=== PATIENT | male | born 1960 | race Caucasian/White ===

== ENCOUNTER 2023-03-10 06:59 | Emergency (ER) | payer MEDICARE, MEDICAID, SELFPAY ==
[2023-03-10 07:02] VITALS: BP 143/89; PULSE 58; RESP 16; TEMP 36.7; O2SAT 96; BMI 33.9
--- NOTE | 2023-03-10 07:16 | ECG_ITS ---
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
--- NOTE | 2023-03-10 07:17 | PC.NURSE ---
pt explained to this Rn how he's had multiple heart stents and open heart surgery. Pt did admit to having some cchest discomfort last night, none currently. EKG completed.
--- NOTE | 2023-03-10 07:21 | ED.URI1 ---
HPI - URI/Sore Throat General Chief Complaint: Upper Respiratory Infection Stated Complaint: SORE THROAT Time Seen by Provider: 03/10/23 07:15 Source: patient Limitations: no limitations History of Present Illness HPI Narrative: 63 -year-old male presents for sore throat which he's had for three days. He's been taking lozenges without improvement. No fever or productive cough. the pain is moderate and worse when he swallows. Related Data Allergies Allergy/AdvReac Type Severity Reaction Status Date / Time rinexa Allergy Severe Uncoded 03/10/23 07:05 Review of Systems ROS Narrative A ten point review of systems is negative except as noted above. PFSH PFSH Social History Smoking status: Current every day smoker Exam Narrative Exam Narrative: Nurses note and vital signs reviewed and patient is not hypoxic. General: The patient appears well and in no apparent distress. Patient is resting comfortably on cart. Skin: Warm, dry, no pallor noted. There is no rash noted. Head: Normocephalic, atraumatic Eye: Normal conjunctiva, no drainage Ears, Nose, Mouth, and Throat: oral mucosa is moist. Nares patent. Mouth without vesicles. no pharyngeal exudate or erythema. No cervical adenopathy. Uvula midline. No swelling noted. Cardiovascular: Regular Rate and Rhythm Respiratory: Patient is in no distress, no accessory muscle use, lungs are clear to auscultation, no wheezing, rales or rhonchi Back: non-tender GI: nontender Musculoskeletal: The patient has no evidence of calf tenderness, no pitting edema, symmetrical pulses noted bilaterally Neurological: A&O, normal speech Psychiatric: Cooperative Constitutional Vital Signs, click to edit/add: Last Vital Signs Temp 98.1 F 03/10/23 07:02 Pulse 58 L 03/10/23 07:02 Resp 16 03/10/23 07:02 BP 143/89 H 03/10/23 07:02 Pulse Ox 96 03/10/23 07:02 O2 Del Method Room Air 03/10/23 07:02 Course Vital Signs Vital signs: Vital Signs Temperature 98.1 F 03/10/23 07:02 Pulse Rate 58 L 03/10/23 07:02 Respiratory Rate 16 03/10/23 07:02 Blood Pressure 143/89 H 03/10/23 07:02 Pulse Oximetry 96 03/10/23 07:02 Oxygen Delivery Method Room Air 03/10/23 07:02 Temperature 98.1 F 03/10/23 07:02 Pulse Rate 58 L 03/10/23 07:02 Respiratory Rate 16 03/10/23 07:02 Blood Pressure 143/89 H 03/10/23 07:02 Pulse Oximetry 96 03/10/23 07:02 Oxygen Delivery Method Room Air 03/10/23 07:02 MDM - URI/Sore Throat MDM Narrative Medical decision making narrative: strep test is negative and he is given IM Decadron. Treatment diagnosis and follow-up were discussed with the patient. Antibiotic is not indicated. Differential Diagnosis Differential diagnosis: Likely upper respiratory infection, viral infection, pharyngitis and other (sstrep throat, viral pharyngitis) Lab Data Attestation: I reviewed the patient's lab results. Labs: Lab Results 03/10/23 Range/Units 07:05 Streptococcus Screen Negative Discharge Plan Discharge Chief Complaint: Upper Respiratory Infection Clinical Impression: Acute viral pharyngitis Patient Disposition: Home, Self-Care Time of Disposition Decision: 07:35 Condition: Good Mode of Transportation: Private Vehicle Instructions: Pharyngitis (ED) Stand Alone Forms: Portal Instructions Referrals: LAYO VÁSQUEZ [Primary Care Provider] - 1 week
[2023-03-10 07:25] LABS: Internal Control Within Normal Limits; Strep A Antigen Screen Negative
[2023-03-10] MEDS: DEXAMETHASONE SODIUM PHOSPHATE 10 MG/ML VIAL IM (07:47)
== END 2023-03-10 07:57 | disposition home or self-care (01) ==
PROVIDERS: Emergency Provider Emergency Medicine; PCP Family Medicine
DX: J02.9 Acute pharyngitis, unspecified (principal); F17.210 Nicotine dependence, cigarettes, uncomplicated
CPT/HCPCS: 87070; 87880; 93005; 96372; 99284; J1100

== ENCOUNTER 2023-09-16 09:16 | Outpatient (OUT) | payer MEDICARE, MEDICAID, SELFPAY ==
[2023-09-16 10:28] LABS: Basophils Absolute Auto 0.1 10^3/uL (0.0-0.1); Basophils Percent Auto 0.9 % (0.2-2.0); Eosinophils Absolute Auto 0.1 10^3/uL (0.0-0.7); Eosinophils Percent Auto 1.4 % (0.9-7.0); Hematocrit 48.8 % (42.0-54.0); Hemoglobin 16.5 g/dL (14.0-18.0); Immature Granulocytes Abs Auto 0.02 10^3/uL (0.00-0.03); Immature Granulocytes Pct Auto 0.4 % (0.0-0.5); Lymphocytes Absolute Auto 1.6 10^3/uL (1.2-3.8); Lymphocytes Percent Auto 28.1 % (20.5-60.0); Mean Corpuscular HGB Conc 33.8 g/dL (29.9-35.2); Mean Corpuscular Hemoglobin 29.5 pg (25.9-34.0); Mean Corpuscular Volume 87.3 fL (80.0-94.0); Mean Platelet Volume 10.5 fL (9.5-13.5); Monocytes Absolute Auto 0.6 10^3/uL (0.3-0.8); Monocytes Percent Auto 11.1 % (1.7-12.0); Neutrophils Absolute Auto 3.2 10^3/uL (1.4-6.5); Neutrophils Percent Auto 58.1 % (43.0-75.0); Platelet Count 133 10^3/uL (150-450); Red Blood Count 5.59 10^6/uL (4.70-6.10); Red Cell Distribution Width 13.1 % (11.0-15.0); White Blood Count 5.5 10^3/uL (4.0-11.0)
[2023-09-16 11:01] LABS: Alanine Aminotransferase 53 U/L (16-63); Albumin Globulin Ratio 1.2; Albumin Level 3.7 g/dL (3.4-5.0); Alkaline Phosphatase 100 U/L (46-116); Anion Gap 13.4; Aspartate Amino Transferase 18 U/L (15-37); BUN Creatinine Ratio 27.2; Bilirubin Total 0.5 mg/dL (0.2-1.0); Calcium 8.9 mg/dL (8.5-10.1); Carbon Dioxide 24.9 mmol/L (21.0-32.0); Chloride 104 mmol/L (98-107); Chol HDL Ratio 5.8; Cholesterol 214 mg/dL (<=200); Estimated GFR (African America >60 (>=60); Estimated GFR (Non-African Ame >60 (>=60); Globulin 3.1 g/dL; Glucose 283 mg/dL (74-106); HDL Cholesterol 37 mg/dL (40-60); Potassium 4.3 mmol/L (3.5-5.1); Sodium 138 mmol/L (136-145); Total Protein 6.8 g/dL (6.4-8.2); Triglycerides 220 mg/dL (<=150)
== END 2023-09-16 09:17 | disposition home or self-care (01) ==
LOC: LAB 09:17
PROVIDERS: Visit Provider Nurse Practitioner
DX: E78.2 Mixed hyperlipidemia (principal); I25.110 Atherosclerotic heart disease of native coronary artery with unstable angina pectoris; R07.9 Chest pain, unspecified
CPT/HCPCS: 36415; 80053; 80061; 85025

== ENCOUNTER 2023-09-26 13:36 | Outpatient (OUT) | payer MEDICARE, MEDICAID, SELFPAY ==
--- NOTE | 2023-09-26 14:00 | CA_ITS ---
Patient Name: SALOMÓN JUSTICE MR#: [id number] : 1960 Exam Date: 09/26/2023 Ordering Doctor: DEBORAH CRANE ECHOCARDIOGRAM REPORT PROCEDURE: CA ECHO DOPPLER COMPLETE INDICATIONS: Dyspnea on exertion, chest pain, hypertension, CABGx2, stents, diabetes COMPARISON: None. DESCRIPTION: COMPLETE ECHOCARDIOGRAM Real-time transthoracic echocardiography with 2D, M-mode, spectral and color flow Doppler performed. QUALITY: Technical quality was good. 70 , 245#, BSA 2.28 m2 LEFT VENTRICLE: Normal chamber size. Normal left ventricular wall thickness. LV EF: Global left ventricular systolic function is normal; visually estimated ejection fraction is 55 to 60%. Unable to assess regional wall motion abnormalities. DIASTOLIC: Normal diastolic function. ATRIAL SEPTUM: Inadequately seen. LEFT ATRIUM: Normal chamber size. RIGHT ATRIUM: Normal chamber size. RIGHT VENTRICLE: Normal chamber size. Normal right ventricular systolic function. TRICUSPID VALVE: Normal mobility and thickness. Trivial regurgitation. Unable to assess right-sided pressures due to lack of measurable tricuspid regurgitation. MITRAL VALVE: Normal mobility and thickness. No evidence of mitral valve stenosis. There is no mitral annular calcification. Mild mitral regurgitation. AORTIC VALVE: Normal trileaflet appearance. No visible sclerosis. Normal leaflet mobility. No evidence of aortic valve stenosis. Trivial aortic regurgitation. AORTIC ROOT: Normal diameter and appearance. PULMONIC VALVE: Normal thickness and mobility. No stenosis. Mild regurgitation. PERICARDIUM: Anterior free space; trivial effusion versus fat pad. IVC: Not well visualized. CONCLUSION: 1. Global left ventricular systolic function is normal; visually estimated ejection fraction is 55 to 60% 2. Normal right ventricular size and systolic function 3. Normal diastolic function 4. Mild mitral regurgitation 5. Mild pulmonic regurgitation 6. Anterior free space; trivial effusion versus fat pad Adult Echocardiography Procedure Report Left Ventricle LVEDD (3.7 - 5.6 cm): 5.47 cm LVESD (2.2 - 4.0 cm): 3.38 cm LVIVS thickness (0.6 - 1.2 cm): 1.10 cm LVPW thickness (0.5 - 1.0 cm): 1.15 cm e': 0.12 m/s E - e': 6.15 LVOT Max Gradient: 3.52 mm[Hg] LVOT Area (cm2): 0.94 m/s Peak Velocity (LVOT): 0.94 m/s Mean Velocity (LVOT): 0.63 m/s LVOT Diameter 2.02 cm Left Atrium LA Volume Index (2D A2C): 28.16 ml/m2 Left Atrium Systolic Dimension: 4.73 cm Mitral Valve MV E to A Ratio: 1.05 Mitral Valve A-Wave Peak Velocity: 0.73 m/s Mitral Valve E-Wave Peak Velocity: 0.76 m/s Right Ventricle Aorta AO Root Diam: 3.26 cm Ascending Ao Diam: 3.06 cm Aortic Valve AoV Area (Peak Nacho): 2.85 cm2, 2.85 cm2 AoV Area (VTI): 3.97 cm2, 3.97 cm2 Peak Velocity(Antegrade Flow): 1.05 m/s Peak Gradient(Antegrade Flow): 4.42 mm[Hg] Mean Velocity(Antegrade Flow): 0.68 m/s Mean Gradient(Antegrade Flow): 2.18 mm[Hg] Velocity Time Integral: 16.83 cm Tricuspid Valve Pulmonic Valve Peak Velocity: 1.24 m/s Peak Gradient: 6.56 mm[Hg], 5.68 mm[Hg] Right Atrium Right Atrium Systolic Pressure: 34.47 ml, 34.47 ml Dictated by: Timmy Arriaga M.D. on 09/26/2023 at 14:54 Approved by: Timmy Arriaga M.D. on 09/26/2023 at 14:58
== END 2023-09-26 13:37 | disposition home or self-care (01) ==
LOC: CARD 13:37
PROVIDERS: Visit Provider Nurse Practitioner
DX: R07.9 Chest pain, unspecified (principal); I10 Essential (primary) hypertension; R06.09 Other forms of dyspnea
CPT/HCPCS: 93306

== ENCOUNTER 2023-11-01 08:09 | Outpatient (OUT) | payer MEDICARE, MEDICAID, SELFPAY ==
--- NOTE | 2023-11-01 | PCN_ITS ---
CARDIAC STRESS TEST Requesting Physician: Procedure Date: 11/01/2023 This was a Lexiscan stress test with myocardial perfusion imaging performed at the [facility] on 11/01/2023. An informed consent was obtained. An intravenous line was secured and the patient was attached to electrocardiographic monitoring. Baseline ECG and vital signs were obtained. Lexiscan 0.4 mg were administered intravenously, followed by administration of Cardiolite. The patient then went on to obtain myocardial perfusion imaging. Resting heart rate was 47 BPM and maximum heart rate was 68 BPM. The resting blood pressure was 118/70 and maximum blood pressure was 122/72. Resting ECG showed evidence of marked sinus bradycardia with first degree AV block. ECG following infusion of Lexiscan showed no evidence of ischemic changes. The patient remained in sinus rhythm. Final ECG was comparable to baseline. IMPRESSION: 1. No evidence of ischemic ECG changes following infusion of Lexiscan. 2. Myocardial perfusion images will be reported separately. MTDD
--- NOTE | 2023-11-01 | NM_ITS ---
Patient Name: SALOMÓN JUSTICE MR#: [id number] : 1960 Exam Date: 11/01/2023 Ordering Doctor: DR HILLARY COLIN M.D. RADIOLOGY REPORT PROCEDURE: NM MIROSLAVA PERF SPECT REST STR COMPARISON: None. INDICATIONS: CHEST PAIN UNSPECIFIED TECHNIQUE: Exam Description: Stress/Rest one day protocol gated SPECT Rest Imagin.8 mCi Tc-99m Cardiolite IV on 11/01/2023 Stress Imaging 30.2 mCi Tc-99m Cardiolite IV on 11/01/2023 Exercise Protocol: 0.4 mg Lexiscan given IV Heart Rate (bpm): Rest: 47 Max: 68 PMHR: 43 Blood Pressure: Rest: 118/70 Max: 122/72 Symptoms: Rest and peak stress ECG findings were pending and the exercise portion of the study was pending per attending physician Dr. OLMEDO . For more details please see separate cardiac stress test report. FINDINGS: QUALITY OF STUDY: Excellent. PERFUSION DEFECT: LOCATION: Basal inferior. Mid-inferior. SIZE: Small (1-2 segments). SEVERITY: Severe. TYPE: Persistent. WALL MOTION: Normal. LV SIZE: Enlarged; EDV 129 mL. TID / TCD: None; 1.1 LVEF: Normal. Calculated EF 65%. SUMMARY: Myocardial perfusion imaging study has ABNORMAL findings. CONCLUSION: 1. No acute or reversible ischemia. 2. Inferior wall fixed perfusion defect versus diaphragm attenuation artifact. 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 3. Enlarged left ventricle, 129 mL. 4. Normal wall motion and ejection fraction. Dictated by: Geoff Holliday M.D. on 11/02/2023 at 14:35 Approved by: Geoff Holliday M.D. on 11/02/2023 at 14:38
--- OUTSIDE RECORDS SUMMARY | 2023-11-01 08:12 | XMS_ITS | CCD ---
Author Organization [facility] Care Team Providers Care Supervisor Press Room Name Role Phone SELF, REFERRED Referring Unavailable HOUSE, MITESH Primary Care Unavailable KIRK, JCAI Admitting Unavailable KIRK, JACI Attending Unavailable Horace MANDEL Attending Unavailable ELTAHAWDanisha, DR THORNTON Consulting Unavailable HOUSE, DR VASQUES Primary Care Unavailable ELTAHAWY, DR THORNTON Attending Unavailable ELTAHAWDanisha, DR THORNTON Admitting Unavailable ZIEBER, DR CHRISTA Macias Consulting Unavailable HOUSE, DR VASQUES Admitting Unavailable HOUSE, DR VASQUES Primary Care Unavailable HOUSE, DR VASQUES Consulting Unavailable AUBURN, DR VASQUES Attending Unavailable ELTAHAWY, HILLARY Attending Unavailable ROSA MARIADEBORAH Galloway Attending Unavailable ELTAHAWY, HILLARY Attending Unavailable ELTAHAWY, EHAB Referring Unavailable Allergies Allergy Classification Reported Allergen(s) Allergy Type Date of Onset Reaction(s) Facility (1 source) black walnut pollen extract Drug Allergy 06-16-2016 [facility] Repository (1 source) ranolazine Drug Allergy 06-11-2009 [facility] Repository (1 source) RENAX Drug allergy (disorder) 12-04-2012 [facility] Repository (1 source) ranolazine; Translations: [RANOLAZINE] Drug Allergy 07-19-2014 [facility] Repository Problems Active Problems Problem Classification Problem Date Documented Date Episodic/Chronic Coronary atherosclerosis and other heart disease (4 sources) Atherosclerotic heart disease of [place] coronary artery with unstable angina pectoris; Translations: [Atherosclerotic heart disease of [place] coronary artery without angina pectoris] Onset: 03-31-2022 Chronic Diabetes mellitus without complication (4 sources) Type 2 diabetes mellitus without complications; Translations: [TYPE 2 DM WITHOUT COMPLICATIONS] Onset: 07-07-2022 Chronic Disorders of lipid metabolism (10 sources) Other hyperlipidemia; Translations: [Mixed hyperlipidemia] Onset: 08-31-2022 Chronic Essential hypertension (3 sources) Essential (primary) hypertension; Translations: [ESSENTIAL PRIMARY HYPERTENSION] Onset: 10-24-2022 Chronic Nonspecific chest pain (2 sources) Chest pain, unspecified; Translations: [Chest pain, unspecified] Onset: 09-14-2023 Episodic Other lower respiratory disease (2 sources) Other forms of dyspnea; Translations: [Other forms of dyspnea] Onset: 09-14-2023 Episodic Past or Other Problems Problem Classification Problem Date Documented Da te Episodic/Chronic Genitourinary symptoms and ill-defined conditions (1 source) Hesitancy of micturition; Translations: [HESITANCY OF MICTURITION] Onset: 07-10-2022 Episodic Other lower respiratory disease (2 sources) Dyspnea, unspecified; Translations: [Dyspnea, unspecified] Onset: 10-13-2022 Episodic Spondylosis; intervertebral disc disorders; other back problems (3 sources) Cervicalgia; Translations: [CERVICALGIA] Onset: 10-13-2022 Episodic Results Test Name Value Interpretation Reference Range Facility Office Visiton 09-14-2023 Follow-up visit [id number] Salomón Justice 1960 M Date Provider Department Center 09/14/2023 120-ROSA MARIA, DEBORAH [facility] No family history on file Level of Service:26115 SD OFFICE/OUTPATIENT ESTABLISHED MOD MDM 30 MIN Normal [facility] Office Visiton 04-20-2023 Follow-up visit [id number] Salomón Justice 1960 M Date Provider Department Center 04/20/2023 271-CORRIETAALISHA, HILLARY [facility] No family history on file Level of Service:72623 SD OFFICE/OUTPATIENT ESTABLISHED LOW MDM 20-29 MIN Normal [facility] LIPID PROFILEon 10-22-2022 CHOL-HDL RATIO NORM SEE BELOW Normal [facility] Comment on above: Result Comment: 3.3 - 4.4 LOW RISK 4.4 - 7.1 AVERAGE RISK 7.1 - 11.0 MODERATE RISK >11.0 HIGH RISK Performed By: #### L SUZANNE, LIPID #### [facility] [address] [address] [address] Anderson Powers Cholesterol [Mass/Vol] 191 mg/dL Normal <=200 [facility] Comment on above: Performed By: #### L IVER, LIPID #### [facility] [address] [address] [address] Anderson Powers Cholesterol in HDL [Mass/Vol] 34 mg/dL Critically low 40-60 [facility] Comment on above: Performed By: #### L IVER, LIPID #### [facility] [address] [address] [address] Andreson Powers Cholesterol in LDL [Mass/Vol] 107.8 mg/dL Normal [facility] Comment on above: Performed By: #### L IVER, LIPID #### [facility] [address] [address] [address] Anderson Powers Cholesterol.total/Ch olesterol in HDL [Mass ratio] 5.6 {ratio} Normal [facility] Comment on above: Performed By: #### L IVER, LIPID #### [facility] [address] [address] [address] Anderson Powers HDL NORMAL > or = 60 mg/dl - LOW CARDIOVASCULAR RISK <40 mg/dl - HIGH CARDIOVASCULAR RISK Normal [facility] Comment on above: Performed By: #### L IVER, LIPID #### [facility] [address] [address] [address] Anderson Powers LDL CALC NORMAL SEE BELOW Normal [facility] Comment on above: Result Comment: <100 mg/dl OPTIMAL 100 - 129 mg/dl NEAR OR ABOVE OPTIMAL 130 - 159 mg/dl BORDERLINE HIGH 160 - 189 mg/dl HIGH >190 mg/dl VERY HIGH Performed By: #### L IVER, LIPID #### [facility] [address] [address] [address] Anderson Powers Triglyceride [Mass/Vol] 246 mg/dL Critically high <=150 [facility] Comment on above: Performed By: #### L IVER, LIPID #### [facility] [address] [address] [address] Anderson Powers VLDL CALC 49.2 mg/dL Normal [facility] Comment on above: Performed By: #### L IVER, LIPID #### [facility] [address] [address] [address] Anderson Powers LIVER PROFILEon 10-22-2022 Albumin [Mass/Vol] 4.0 g/dL Normal 3.4-5.0 [facility] Comment on above: Performed By: #### L IVER, LIPID #### [facility] [address] [address] [address] Anderson Powers Albumin/Globulin [Mass ratio] 1.5 {ratio} Normal [facility] Comment on above: Performed By: #### L IVER, LIPID #### [facility] [address] [address] [address] Anderson Powers ALP [Catalytic activity/Vol] 124 U/L Critically high 46-116 [facility] Comment on above: Performed By: #### L IVER, LIPID #### [facility] [address] [place] [address] Dr. Anderson Powers ALT [Catalytic activity/Vol] 55 U/L Normal 16-63 [facility] Comment on above: Performed By: #### L IVER, LIPID #### [facility] [address] [place] [address] Dr. Anderson Powers AST [Catalytic activity/Vol] 21 U/L Normal 15-37 [facility] Comment on above: Performed By: #### L IVER, LIPID #### [facility] [address] [place] [address] Dr. Anderson Powers BILI, CONJUGATED 0.1 mg/dL Normal 0.0-0.2 [facility] Comment on above: Performed By: #### L IVER, LIPID #### [facility] [address] [address] [address] Anderson Powers Bilirubin [Mass/Vol] 0.5 mg/dL Normal 0.2-1.0 [facility] Comment on above: Performed By: #### L IVER, LIPID #### [facility] [address] [address] [address] Anderson Powers Globulin (S) [Mass/Vol] 2.7 g/dL Normal [facility] Comment on above: Performed By: #### L IVER, LIPID #### [facility] [address] [address] [address] Anderson Powers Protein [Mass/Vol] 6.7 g/dL Normal 6.4-8.2 [facility] Comment on above: Performed By: #### L IVJAS LIPID #### [facility] [address] [address] [address] Anderson Powers XR CSPINE MIN 4 VIEWSon 09-30 XR CSPINE MIN 4 VIEWS EXAMINATION: XR CSPINE MIN 4 VIEWS HISTORY: Neck pain COMPARISON: No relevant comparison available. FINDINGS: BONES: Mild degenerative facet arthropathy C5-6, C6-7. No fracture or spondylolisthesis. DISC SPACES: Slight narrowing C3-4 through C6-7. PARASPINOUS: Negative. No paraspinous abnormality is seen. OTHER: Negative. IMPRESSION: 1. Multilevel mild degenerative changes. 2. No appreciable acute abnormality. Electronically authenticated by: CHRISTA BARRAGAN Date: 2022-10-22 11:08 Normal [facility] Office Visiton 10-13-2022 Follow-up visit [id number] Salomón Justice 1960 M Date Provider Department Center 10/13/2022 271-HILLARY ARRIAGA [facility] Cat . No family history on file Level of Service:87009 SD OFFICE/OUTPATIENT ESTABLISHED MOD MDM 30-39 MIN Reason for Visit and Comments: heart pain [Other] - Patient states that last week it felt like someone was sticking a needle in heart.patient states there's tightness in the chest every now and than Normal [facility] Registrationon 08-18-2022 Registration [id number]# 1.00CD:[address] [facility] CBC AUTO DIFFon 07-07-2022 BASO # 0.0 103/ul Normal 0.0-0.1 [facility] Comment on above: Performed By: #### C BC #### [facility] [address] [address] [address] Anderson Powers Basophils/100 WBC (Bld) 0.7 % Normal 0.2-2.0 [facility] Comment on above: Performed By: #### C BC #### [facility] [address] [place] [address] Dr. Anderson Powers EO # 0.1 103/ul Normal 0.0-0.7 [facility] Comment on above: Performed By: #### C BC #### [facility] [address] [place] [address] Dr. Anderson Powers Eosinophils/100 WBC (Bld) 1.6 % Normal 0.9-7.0 [facility] Comment on above: Performed By: #### C BC #### [facility] [address] [place] [address] Dr. Anderson Powers Erythrocyte distribution width (RBC) [Ratio] 13.2 % Normal 11.0-15.0 [facility] Comment on above: Performed By: #### C BC #### [facility] [address] [place] [address] Dr. Anderson Powers Hematocrit (Bld) [Volume fraction] 47.3 % Normal 42.0-54.0 [facility] Comment on above: Performed By: #### C BC #### [facility] [address] [place] [address] Dr. Anderson Powers Hemoglobin (Bld) [Mass/Vol] 16.2 g/dL Normal 14.0-18.0 [facility] Comment on above: Performed By: #### C BC #### [facility] [address] [place] [address] Dr. Anderson Powers IG # 0.03 10e3/ul Normal 0.00-0.03 [facility] Comment on above: Performed By: #### C BC #### [facility] [address] [place] [address] Dr. Anderson Powers IG % 0.5 % Normal 0.0-0.5 [facility] Comment on above: Performed By: #### C BC #### [facility] [address] [place] [address] Dr. Anderson Powers LYMPH # 1.4 103/ul Normal 1.2-3.8 [facility] Comment on above: Performed By: #### C BC #### [facility] [address] [place] [address] Dr. Anderson Powers Lymphocytes/100 WBC (Bld) 24.1 % Normal 20.5-60.0 [facility] Comment on above: Performed By: #### C BC #### [facility] [address] [place] [address] Dr. Anderson Powers MANUAL DIFF REQ NO Normal [facility] Comment on above: Performed By: #### C BC #### [facility] [address] [place] [address] Dr. Anderson Powers MCH (RBC) [Entitic mass] 29.4 pg Normal 25.9-34.0 [facility] Comment on above: Performed By: #### C BC #### [facility] [address] [place] [address] Dr. Anderson Powers MCHC (RBC) [Mass/Vol] 34.2 g/dL Normal 29.9-35.2 [facility] Comment on above: Performed By: #### C BC #### [facility] [address] [place] [address] Dr. Anderson Powers MCV (RBC) [Entitic vol] 85.8 fL Normal 80.0-94.0 [facility] Comment on above: Performed By: #### C BC #### [facility] [address] [place] [address] Dr. Anderson Powers MONO # 0.5 103/ul Normal 0.3-0.8 [facility] Comment on above: Performed By: #### C BC #### [facility] [address] [place] [address] Dr. Anderson Powers Monocytes/100 WBC (Bld) 8.9 % Normal 1.7-12.0 [facility] Comment on above: Performed By: #### C BC #### [facility] [address] [place] [address] Dr. Anderson Powers NEUT # 3.6 103/ul Normal 1.4-6.5 [facility] Comment on above: Performed By: #### C BC #### [facility] [address] [address] [address] Anderson Powesr Neutrophils/100 WBC (Bld) 64.2 % Normal 43.0-75.0 [facility] Comment on above: Performed By: #### C BC #### [facility] [address] [address] [address] Anderson Powers Platelet mean volume (Bld) [Entitic vol] 10.6 fL Normal 9.5-13.5 [facility] Comment on above: Performed By: #### C BC #### [facility] [address] [address] [address] Anderson Powers PLT 148 103/ul Critically low 150-450 [facility] Comment on above: Performed By: #### C BC #### [facility] [address] [place] [address] Dr. Anderson Powers RBC 5.51 106/ul Normal 4.70-6.10 [facility] Comment on above: Performed By: #### C BC #### [facility] [address] [address] [address] Anderson Powers WBC 5.6 103/ul Normal 4.0-11.0 [facility] Comment on above: Performed By: #### C BC #### [facility] [address] [place] [address] Dr. Anderson Powers GLYCOHEMOGLOBIN A1Con 2021 ADA RECOMMENDATION SEE BELOW Normal [facility] Comment on above: Result Comment: ADA RECOMMENDED LIMIT 4.0 - 6.0 ADA THERAPEUTIC TARGET < 7.0 ACTION SUGGESTED > 7.0 Performed By: #### A 1C #### [facility] [address] [place] [address] Dr. Anderson Powers Glucose [Mass/Vol] 194 mg/dL Normal [facility] Comment on above: Performed By: #### A 1C #### [facility] [address] [place] [address] Dr. Anderson Powers HbA1c (Bld) [Mass fraction] 8.4 % Critically high 4.5-6.2 [facility] Comment on above: Performed By: #### A 1C #### [facility] [address] [address] [address] Anderson Powers MICROALBUMIN, RAND URon 12-0 mALB <1.3 Normal <=30.0 [facility] Comment on above: Performed By: #### M ALBR #### [facility] [address] [place] [address] Dr. Anderson Powers PROF 14(COMP METB)on 022 Albumin [Mass/Vol] 3.9 g/dL Normal 3.4-5.0 [facility] Comment on above: Performed By: #### C MP #### [facility] [address] [place] [address] Dr. Anderson Powers Albumin/Globulin [Mass ratio] 1.4 {ratio} Normal [facility] Comment on above: Performed By: #### C MP #### [facility] [address] [place] [address] Dr. Anderson Powers ALP [Catalytic activity/Vol] 108 U/L Normal 46-116 [facility] Comment on above: Performed By: #### C MP #### [facility] [address] [place] [address] Dr. Anderson Powers ALT [Catalytic activity/Vol] 49 U/L Normal 16-63 [facility] Comment on above: Performed By: #### C MP #### [facility] [address] [place] [address] Dr. Anderson Powers Anion gap [Moles/Vol] 10.6 mmol/L Normal [facility] Comment on above: Performed By: #### C MP #### [facility] [address] [place] [address] Dr. Anderson Powers AST [Catalytic activity/Vol] 18 U/L Normal 15-37 [facility] Comment on above: Performed By: #### C MP #### [facility] [address] [place] [address] Dr. Anderson Powers Bilirubin [Mass/Vol] 0.4 mg/dL Normal 0.2-1.0 [facility] Comment on above: Performed By: #### C MP #### [facility] [address] [address] [address] Anderson Powers Calcium [Mass/Vol] 9.0 mg/dL Normal 8.5-10.1 [facility] Comment on above: Performed By: #### C MP #### [facility] [address] [address] [address] Anderson Powers Chloride [Moles/Vol] 102 mmol/L Normal 98-107 [facility] Comment on above: Performed By: #### C MP #### [facility] [address] [address] [address] Anderson Powers CO2 [Moles/Vol] 31.0 mmol/L Normal 21.0-32.0 [facility] Comment on above: Performed By: #### C MP #### [facility] [address] [place] [address] Dr. Anderson Powers Creatinine [Mass/Vol] 0.98 mg/dL Normal 0.70-1.30 [facility] Comment on above: Performed By: #### C MP #### [facility] [address] [place] [address] Dr. Anderson Powers EGFR-AF CHILEAN >60 Normal >=60 [facility] Comment on above: Performed By: #### C MP #### [facility] [address] [place] [address] Dr. Anderson Powers EGFR-NON AF CHILEAN >60 Normal >=60 [facility] Comment on above: Performed By: #### C MP #### [facility] [address] [place] [address] Dr. Anderson Powers Globulin (S) [Mass/Vol] 2.8 g/dL Normal [facility] Comment on above: Performed By: #### C MP #### [facility] [address] [place] [address] Dr. Anderson Powers Glucose [Mass/Vol] 261 mg/dL Critically high 74-106 [facility] Comment on above: Performed By: #### C MP #### [facility] [address] [place] [address] Dr. Anderson Powers Potassium [Moles/Vol] 4.6 mmol/L Normal 3.5-5.1 [facility] Comment on above: Performed By: #### C MP #### [facility] [address] [address] [address] Anderson Powers Protein [Mass/Vol] 6.7 g/dL Normal 6.4-8.2 [facility] Comment on above: Performed By: #### C MP #### [facility] [address] [address] [address] Anderson Powers Sodium [Moles/Vol] 139 mmol/L Normal 136-145 [facility] Comment on above: Performed By: #### C MP #### [facility] [address] [address] [address] Anderson Powers Urea nitrogen [Mass/Vol] 19.0 mg/dL Critically high 7.0-18.0 [facility] Comment on above: Performed By: #### C MP #### [facility] [address] [address] [address] Anderson Powers Urea nitrogen/Creatinine [Mass ratio] 19.4 mg/mg Normal [facility] Comment on above: Performed By: #### C MP #### [facility] [address] [address] [address] Anderson Powers Consenton 05-24-2022 Consent [id number] #[id number]:[address] [facility] CREATININE BLOODon Creatinine [Mass/Vol] 0.85 mg/dL Normal 0.70-1.30 [facility] Comment on above: Order Comment: No: D o not add to previous draw Performed By: #### 2 5656 #### [facility] [address] [place] [address], [facility] GFR/1.73 sq M.predicted among blacks MDRD (S/P/Bld) [Vol rate/Area] mL/min/{1.73_m2} Normal >60 [facility] Comment on above: Order Comment: No: D o not add to previous draw Performed By: #### 2 5656 #### [facility] [address] [facility]. [address] GFR/1.73 sq M.predicted among non-blacks MDRD (S/P/Bld) [Vol rate/Area] mL/min/{1.73_m2} Normal >60 [facility] Comment on above: Order Comment: No: D o not add to previous draw Performed By: #### 2 5656 #### [facility] [address] Cardiovascular Lab Reporton 09-17-2021 Cardiovascular Lab Report [facility] Salomón Garner MR #: [id number] Department of Physician: Mario Fisher M.D. Division of Service Date: 09/16/2021 Cardiology Birthdate: 1960 Adult Cardiovascular Room #: [id number] Services [place] [address] Cardiovascular Laboratory Report CLINICAL PRESENTATION: The patient is a 61-year-old male with a complex past medical history including severe CAD with many prior coronary interventions. He has a history of CABG as well as he reports more than 20 prior stents. He does have previously placed diffuse stents throughout the entire LAD and circumflex territories and left main coronary artery seen on prior angiogram from 2016. He has had prior ISR. He also has hyperlipidemia and is unfortunately intolerant to statins and ezetimibe. He has history of hypertension as well. He reports typical chest pain symptoms occurring at rest and worsening over the last 1 month. Given his history, the findings are concerning for unstable angina, CCS class 4. He now presents for coronary angiogram. IMPRESSION: 1. The culprit lesion is a 90% stenosis of the proximal RCA status post successful PCI with a Synergy 3.0 x 32 mm drug-eluting stent, which was post dilated with a 4.0 mm noncompliant balloon. 2. The PEREZ to LAD is patent. 3. The previously placed stents in the left main and LAD are patent with diffuse moderate in-stent restenosis. 4. The circumflex territory has diffuse in-stent restenosis (ISR) with ostial disease and severe mid vessel disease and severe distal disease. The OM1 is known to be previously occluded. The overall size of the circumflex territory into the OM2 is small to moderate. 5. The right posterolateral artery is occluded within a previously placed stent and is collateralized by epicardial collaterals from the LAD diagonal branch to the posterolateral artery. 6. The PDA is patent with moderate disease in its proximal segment. PLAN: 1. Aggressive medical therapy for secondary prevention of CAD. 2. Aspirin and Plavix daily long-term dual antiplatelet therapy given the very high number of stents the patient has. 3. The patient has severe CAD with multiple prior stent procedures and prior CABG, but is unfortunately statin intolerant. He reports intolerance to at least 3 prior statins including Zocor and Lipitor and Crestor. He also has a prior intolerance to ezetimibe. The patient is a good candidate for PCSK9 inhibitor therapy. He can be treated with Repatha or Praluent, which are monoclonal antibodies against PCSK9. If we cannot arrange insurance coverage or if this is not a viable option, then he could be treated with a newer agent, which is Leqvio (inclisiran), which is a siRNA inhibitor of PCSK9. 4. Add colchicine 0.6 mg daily for chronic management of CAD (COLCOT and LODOCO2 trials) and prevention of in-stent restenosis. 5. Triglycerides are elevated. Can also try to prescribe Vascepa 2 g twice daily based on the REDUCE-IT trial. 6. Outpatient followup with [facility]. 7. Referral to cardiac rehabilitation. PROCEDURES: Coronary angiogram, bypass graft angiogram, PCI RCA, conscious sedation 56 minutes. INDICATION: Unstable angina CCS class 4, known severe CAD. PROCEDURE DESCRIPTION: The patient was brought to cardiac catheterization lab in a fasting state. Informed written consent was obtained. Prepped and draped in usual sterile fashion. A bilateral groin time-out was performed given Versed and fentanyl sedation. Using ultrasound guidance and micropuncture access technique, a 6-[place] sheath placed in right common femoral artery. Limited femoral angiogram was performed, which showed adequate placement of right common femoral artery. Next, coronary bypass graft angiogram was performed. All catheter exchanges were made over the J-tip guidewire. A 6-[place] JL4 was engaged to the left main coronary artery. A 6-[place] JR4 was engaged in right coronary artery. A 6-[place] BONI catheter was engaged to the left internal mammary artery bypass graft to the LAD. Coronary bypass graft angiography was performed in multiple orthogonal views using hand injection of contrast. At this time, it was apparent that the proximal RCA had 90% stenosis and this was the likely culprit for the patient's presentation. I elected to proceed with PCI. Heparin anticoagulation was used for this procedure. ACG was maintained greater than 200 seconds. A 6-[place] JR4 guide was engaged to right coronary artery. A run-through coronary wire was delivered to the distal RCA. The lesion was predilated with an Emerge 3.0 x 15 mm balloon at 12 atmospheres. Next, a Synergy 3.0 x 32 mm drug-eluting stent was deployed at 16 atmospheres. Next, the NC emerge 4.0 x 20 mm noncompliant balloon was used for post dilations. Th (more content not included)... Normal [facility] APTTon 09-16-2021 aPTT Coag (Bld) [Time] 30.9 s Normal 25.0-35.0 [facility] Comment on above: Order Comment: evalu ate for Aspiration Result Comment: ALL RESULTS MUST BE INTERPRETED WITH RESPECT TO BLOOD DRAWING ARTIFACT OR DILUTION ERROR OF ANTICOAGULANT AT THE TIME OF SAMPLING. THE APTT SHOULD NOT BE USED TO MONITOR UNFRACTIONATED HEPARIN THERAPY, THIS LABORATORY NO LONGER HAS AN ESTABLISHED THERAPEUTIC RANGE BASED ON THE APTT. IT IS RECOMMENDED THAT THE UFH - HEPARIN ASSAY (ANTI-XA ACTIVITY) BE USED FOR THIS PURPOSE. Performed By: #### 5 7330, 29452 ####[facility] [facility] [address], [facility] BASIC METABOLIC PANELon 09-01 Calcium [Mass/Vol] 8.8 mg/dL Normal 8.6-10.3 [facility] Comment on above: Order Comment: evalu ate for Aspiration Performed By: #### 4 6413, 42820, 92065, 05370, 61982 ####[facility] [facility] [address], [facility] Chloride [Moles/Vol] 108 mmol/L High 98-107 [facility] Comment on above: Order Comment: evalu ate for Aspiration Performed By: #### 4 6413, 02689, 84309, 70469, 73721 ####[facility] [place] [address], [facility] CO2 [Moles/Vol] 24 mmol/L Normal 21-31 [facility] Comment on above: Order Comment: evalu ate for Aspiration Performed By: #### 4 6413, 93455, 13596, 40578, 30112 ####[facility] [place] [address], [facility] Creatinine [Mass/Vol] 0.86 mg/dL Normal 0.70-1.30 [facility] Comment on above: Order Comment: evalu ate for Aspiration Performed By: #### 4 6413, 25254, 35334, 78511, 02576 ####[facility] [place] [address], [facility] GFR/1.73 sq M.predicted among blacks MDRD (S/P/Bld) [Vol rate/Area] mL/min/{1.73_m2} Normal >60 [facility] Comment on above: Order Comment: evalu ate for Aspiration Performed By: #### 4 6413, 48291, 33368, 84172, 66456 ####[facility] [place] [address], [facility] GFR/1.73 sq M.predicted among non-blacks MDRD (S/P/Bld) [Vol rate/Area] mL/min/{1.73_m2} Normal >60 [facility] Comment on above: Order Comment: evalu ate for Aspiration Performed By: #### 4 6413, 27698, 83917, 50020, 05622 ####[facility] [place] [address], [place] Glucose [Mass/Vol] 142 mg/dL High 70-100 [facility] Comment on above: Order Comment: evalu ate for Aspiration Performed By: #### 4 6413, 84028, 58496, 40101, 07444 ####[facility] [place] [address], [facility] Potassium [Moles/Vol] 3.7 mmol/L Normal 3.5-5.1 [facility] Comment on above: Order Comment: evalu ate for Aspiration Performed By: #### 4 6413, 63899, 90270, 14375, 07902 ####[facility] [place] [address], [facility] Sodium [Moles/Vol] 140 mmol/L Normal 136-145 [facility] Comment on above: Order Comment: evalu ate for Aspiration Performed By: #### 4 6413, 72376, 58963, 95656, 76686 ####[facility] [facility] [place] [address], [facility] Urea nitrogen [Mass/Vol] 13 mg/dL Normal 7-25 [facility] Comment on above: Order Comment: evalu ate for Aspiration Performed By: #### 4 6413, 54656, 32162, 55379, 04389 ####[facility].[address] BNP (B-TYPE NATRIURETIC PEPT RORY)on 09-16-2021 Natriuretic peptide B (Bld) [Mass/Vol] 45 pg/mL Normal 0-100 [facility] Comment on above: Order Comment: evalu ate for Aspiration Result Comment: Give n the appropriate clinical setting a BNP result of >100 pg/mL indicates congestive heart failure. Performed By: #### 8 5123 ####[facility] [facility].[address] CBC COMPLETE BLOOD COUNTon 0 09-16-2021 Erythrocyte distribution width (RBC) [Ratio] 14.2 % Normal 11.5-15.0 [facility] Comment on above: Order Comment: No: D o not add to previous draw Performed By: #### 5 0608 #### [facility] [address] [place] [address], [facility] Hematocrit (Bld) [Volume fraction] 44.0 % Normal 39.0-50.0 [facility] Comment on above: Order Comment: No: D o not add to previous draw Performed By: #### 5 0608 #### [facility] [address] [place] [address], [facility] Hemoglobin (Bld) [Mass/Vol] 15.4 g/dL Normal 13.0-17.0 [facility] Comment on above: Order Comment: No: D o not add to previous draw Performed By: #### 5 0608 #### [facility] [address] [place] [address], [facility] MCH (RBC) [Entitic mass] 29.2 pg Normal 27.0-33.0 [facility] Comment on above: Order Comment: No: D o not add to previous draw Performed By: #### 5 0608 #### [facility] [address] [place] [address], [facility] MCHC (RBC) [Mass/Vol] 35.0 g/dL Normal 32.0-35.0 [facility] Comment on above: Order Comment: No: D o not add to previous draw Performed By: #### 5 0608 #### [facility] [address] [facility] [address], [facility] MCV (RBC) [Entitic vol] 83.3 fL Normal 82.0-98.0 [facility] Comment on above: Order Comment: No: D o not add to previous draw Performed By: #### 5 0608 #### [facility] [address] [facility] [place] [place] [address], [facility] Nucleated RBC/100 WBC (Bld) [Ratio] 0 % Normal 0-0 [facility] Comment on above: Order Comment: No: D o not add to previous draw Performed By: #### 5 0608 #### [facility] [address] [place] [address], [facility] PLAT CNT 124 10*3/uL Low 150-400 [facility] Comment on above: Order Comment: No: D o not add to previous draw Performed By: #### 5 0608 #### [facility] [address] [place] [address], [facility] RBC (Bld) [#/Vol] 5.28 10*6/uL Normal 4.20-5.70 [facility] Comment on above: Order Comment: No: D o not add to previous draw Performed By: #### 5 0608 #### [facility] [address] [place] [address], [facility] WBC (Bld) [#/Vol] 4.81 10*3/uL Normal 4.00-10.60 [facility] Comment on above: Order Comment: No: D o not add to previous draw Performed By: #### 5 0608 #### [facility] [address] [facility] [place] [address], [facility] LIPID PROFILEon 09-16-2021 Cholesterol [Mass/Vol] 193 mg/dL Normal 120-200 [facility] Comment on above: Order Comment: No: D o not add to previous draw Result Comment: CHOL ESTEROL REFERENCE RANGE: 20 YEARS AND OLDER CARDIOVASCULAR RISK Less than 200 mg/dl Low Risk 200 to 239 mg/dl Borderline Risk 240 mg/dl and greater High Risk Performed By: #### 4 6413, 09047, 23715, 62023, 38026 #### [facility] [address] [place] [address], [facility] Cholesterol in HDL [Mass/Vol] 30 mg/dL Normal 23-92 [facility] Comment on above: Order Comment: No: D o not add to previous draw Result Comment: Slig ht variation in normal range could be due to gender and/or age. HDL CHOLESTEROL REFERENCE RANGE: 20 years and older Cardiovascular Risk > or =60 mg/dL Desirable 40 TO 59 mg/dL Low Risk <40 mg/dL High Risk Performed By: #### 4 6413, 00542, 80414, 59837, 53740 #### [facility] [address] [place] [address], [facility] Cholesterol in LDL [Mass/Vol] 121 mg/dL Normal 0-130 [facility] Comment on above: Order Comment: No: D o not add to previous draw Result Comment: LDL IS A CALCULATION LDL IS ONLY VALID IF THE TRIG IS LESS THAN 400. Performed By: #### 4 6413, 67998, 65049, 45715, 12882 #### [facility] [address] [place] [address], [facility] Cholesterol.total/Ch olesterol in HDL [Mass ratio] 6.4 {ratio} High .0-4.5 [facility] Comment on above: Order Comment: No: D o not add to previous draw Performed By: #### 4 6413, 67568, 74327, 34159, 36202 #### [facility] [address] [place] [address], [facility] NON-HDL CHOLESTEROL 163 mg/dL Normal [facility] Comment on above: Order Comment: No: D o not add to previous draw Performed By: #### 4 6413, 82258, 46557, 62919, 28843 #### [facility] [address] [place] [address], [facility] Triglyceride [Mass/Vol] 208 mg/dL High 40-149 [facility] Comment on above: Order Comment: No: D o not add to previous draw Result Comment: TRIG LYCERIDE REFERENCE RANGE: 20 YEARS AND OLDER CARDIOVASCULAR RISK LESS THAN 150 mg/dl LOW RISK 150 TO 199 mg/dl BORDERLINE RISK 200 mg/dl AND GREATER HIGH RISK Performed By: #### 4 6413, 08459, 13811, 47848, 72481 #### [facility] [address] [place] [address], [place] VLDL CHOL 42 mg/dL High 0-40 [facility] Comment on above: Order Comment: No: D o not add to previous draw Performed By: #### 4 6413, 99175, 85688, 91263, 33126 #### [facility] [address] [place] [address], [facility] MAGNESIUM BLOODon 09-16-2021 Magnesium [Mass/Vol] 2.2 mg/dL Normal 1.9-2.7 [facility] Comment on above: Order Comment: No: D o not add to previous draw Performed By: #### 4 6413, 59163, 10270, 56085, 74653 #### [facility] [address] [place] [address], [facility] Magnesium [Mass/Vol] 2.3 mg/dL Normal 1.9-2.7 [facility] Comment on above: Order Comment: if no t done in ED No: Do not add to previous draw Performed By: #### 3 5200, 41305 #### [facility] [address] [facility] [place] [place] [address], [facility] PHOSPHORUS BLOODon Phosphate [Mass/Vol] 3.0 mg/dL Normal 2.5-5.0 [facility] Comment on above: Order Comment: No: D o not add to previous draw Performed By: #### 4 6413, 04247, 32902, 53907, 02261 #### [facility] [address] [facility]. [address] POC SARS COV2 ANTIGEN NEGATI VEon 09-16-2021 POC SARS COV2 ANTIGEN NEG Negative Normal NEGATIVE [facility] Comment on above: Result Comment: Nega tive results should be treated as presumptive and confirmation with a molecular assay, if necessary, for patient management, may be performed. Negative results do not rule out SARS-CoV-2 infection and not should be used as the sole basis for treatment or patient management decisions, including infection control decisions. Negative results should be considered in the context of a patient's recent exposures, history, and the presence of clinical signs and symptoms consistent with COVID-19. The Clarity COVID-19 Antigen Rapid Test Cassette is a rapid chromatographic immunoassay intended for the qualitative detection of the nucleocapsid protein antigen from SARS-CoV-2 in direct nasopharyngeal swab (DIALYSIS CHIEF EQUIPMENT TECHNICIAN) specimens from individuals who are suspected of COVID-19 by their healthcare provider within the first six days of symptom onset. Testing is limited to laboratories certified under the Clinical Laboratory Improvement Amendments of 1988 (CLIA), 42 U.S.C. ???263a, that meet the requirements to perform moderate complexity, high complexity, or waived tests. This test is authorized for use at the Point of Care (POC), i.e., in patient care settings operating under a CLIA Certificate of Waiver, Certificate of Compliance, or Certificate of Accreditation. Performed By: #### 3 2044 #### [facility] [address] [facility]. [place], [place] [address] [place] [address] PROTHROMBIN TIMEon 2 INR Coag (PPP) [Relative time] 1.02 {INR} Normal 0.91-1.16 [facility] Comment on above: Order Comment: evalu ate for Aspiration Result Comment: ACCC P RECOMMENDED INR FOR WARFARIN THERAPY ------- ------- CONDITION INR PROPHYLAXIS OF VENOUS THROMBOSIS 2-3 (HIGH-RISK SURGERY) TREATMENT OF VENOUS THROMBOSIS 2-3 TREATMENT OF PULMONARY EMBOLISM 2-3 PREVENTION OF SYSTEMIC EMBOLISM: 2-3 ACUTE MYOCARDIAL INFARCTION TISSUE HEART VALVES VALVULAR HEART DISEASE ATRIAL FIBRILLATION RECURRENT SYSTEMIC EMBOLISM MECHANICAL HEART VALVE 2.5-3.5 FROM: ORAL ANTICOAGULANTS. MECHANISM OF ACTION, CLINICAL EFFECTIVENESS, AND OPTIMAL THERAPEUTIC RANGE. CHEST 1995;108:231S-246S. Performed By: #### 5 7307, 59739 ####[facility] [facility] [place] [address], [facility] PT Coag (PPP) [Time] 13.4 s Normal 12.3-14.8 [facility] Comment on above: Order Comment: evalu ate for Aspiration Result Comment: ALL RESULTS MUST BE INTERPRETED WITH RESPECT TO BLOOD DRAWING ARTIFACT OR DILUTION ERROR OF ANTICOAGULANT AT THE TIME OF SAMPLING. Performed By: #### 5 7307, 94113 ####[facility] [facility] [address], [facility] TROPONIN-Ion 09-16-2021 Troponin I.cardiac [Mass/Vol] 0.00 ng/mL Normal 0.00-0.04 [facility] Comment on above: Order Comment: No: D o not add to previous draw Result Comment: REFE RENCE RANGES: 0.00 - 0.04 ng/ml NORMAL 0.05 - 0.50 ng/ml INDETERMINATE > 0.50 ng/ml CONSISTENT WITH AN M.I. Performed By: #### 4 6413, 17088, 15970, 49963, 05921 #### [facility] [address] [facility] [place] [address], [facility] Troponin I.cardiac [Mass/Vol] 0.00 ng/mL Normal 0.00-0.04 [facility] Comment on above: Order Comment: No: D o not add to previous draw Result Comment: REFE RENCE RANGES: 0.00 - 0.04 ng/ml NORMAL 0.05 - 0.50 ng/ml INDETERMINATE > 0.50 ng/ml CONSISTENT WITH AN M.I. Performed By: #### 3 5200, 26214 #### [facility] [address] [facility] [place] [place] [address], [facility] BASIC METABOLIC PANELon 09-01 Calcium [Mass/Vol] 9.3 mg/dL Normal 8.6-10.3 [facility] Comment on above: Performed By: #### 0 0071, 19903 ####[facility] [facility] [place] [address], [facility] Chloride [Moles/Vol] 106 mmol/L Normal 98-107 [facility] Comment on above: Performed By: #### 0 70, 69885 ####[facility] [place] [address], [facility] CO2 [Moles/Vol] 24 mmol/L Normal 21-31 [facility] Comment on above: Performed By: #### 0 70, 06261 ####[facility] [facility].[place] [id number], [facility] Creatinine [Mass/Vol] 0.96 mg/dL Normal 0.70-1.30 [facility] Comment on above: Performed By: #### 0 70, 88702 ####[facility] [facility].[place] [id number], [facility] GFR/1.73 sq M.predicted among blacks MDRD (S/P/Bld) [Vol rate/Area] mL/min/{1.73_m2} Normal >60 [facility] Comment on above: Performed By: #### 0 70, 99868 ####[facility] [facility] [place] [address], [facility] GFR/1.73 sq M.predicted among non-blacks MDRD (S/P/Bld) [Vol rate/Area] mL/min/{1.73_m2} Normal >60 [facility] Comment on above: Performed By: #### 0 70, 57107 ####[facility] [facility].[place] [id number], [facility] Glucose [Mass/Vol] 143 mg/dL High 70-100 [facility] Comment on above: Performed By: #### 0 70, 68005 ####[facility] [facility].[place] [id number], [place] Potassium [Moles/Vol] 4.3 mmol/L Normal 3.5-5.1 [facility] Comment on above: Performed By: #### 0 70, 39150 ####[facility] [facility] [address], [facility] Sodium [Moles/Vol] 138 mmol/L Normal 136-145 [facility] Comment on above: Performed By: #### 0 0071, 21138 ####[facility] [facility] [address], [facility] Urea nitrogen [Mass/Vol] 13 mg/dL Normal 7-25 [facility] Comment on above: Performed By: #### 0 70, 52984 ####[facility] [place] [address], [facility] CBC W/DIFFon 09-15-2021 ABS IMM GRANS 0.0 10*3/uL Normal 0.0-0.2 The [facility] Comment on above: Performed By: #### 5 0103 ####[facility] [facility].[address] ABS NEUTROPHILS 3.8 10*3/uL Normal 1.6-7.6 [facility] Comment on above: Performed By: #### 5 0103 ####[facility] [facility] [address], [facility] Basophils (Bld) [#/Vol] 0.1 10*3/uL Normal 0.0-0.2 [facility] Comment on above: Performed By: #### 5 0103 ####[facility] [facility] [address], [facility] Basophils/100 WBC (Bld) 0.8 % Normal 0.0-1.0 [facility] Comment on above: Performed By: #### 5 3 ####[facility] [facility] [place] [address], [facility] Eosinophils (Bld) [#/Vol] 0.1 10*3/uL Normal 0.0-0.5 [facility] Comment on above: Performed By: #### 5 0103 ####[facility] [facility] [place] [address], [facility] Eosinophils/100 WBC (Bld) 1.5 % Normal 0.0-6.0 [facility] Comment on above: Performed By: #### 5 0103 ####[facility] [facility].[address] Erythrocyte distribution width (RBC) [Ratio] 14.0 % Normal 11.5-15.0 [facility] Comment on above: Performed By: #### 5 3 ####[facility] [facility].[address] Hematocrit (Bld) [Volume fraction] 45.1 % Normal 39.0-50.0 [facility] Comment on above: Performed By: #### 3 ####[facility] [facility].[address] Hemoglobin (Bld) [Mass/Vol] 15.4 g/dL Normal 13.0-17.0 [facility] Comment on above: Performed By: #### 5 3 ####[facility] [facility] [place] [address], [facility] IMMATURE GRANS 0.5 % Normal 0.0-1.0 [facility] Comment on above: Performed By: #### 5 3 ####[facility] [facility] [place] [address], [facility] Lymphocytes (Bld) [#/Vol] 1.5 10*3/uL Normal 1.2-4.0 [facility] Comment on above: Performed By: #### 5 3 ####[facility] [facility] [place] [address], [facility] Lymphocytes/100 WBC (Bld) 24.6 % Normal 20.0-45.0 [facility] Comment on above: Performed By: #### 5 0103 ####[facility] [facility].[address] MCH (RBC) [Entitic mass] 29.0 pg Normal 27.0-33.0 [facility] Comment on above: Performed By: #### 5 3 ####[facility] [facility].[address] MCHC (RBC) [Mass/Vol] 34.1 g/dL Normal 32.0-35.0 [facility] Comment on above: Performed By: #### 5 3 ####[facility] MCV (RBC) [Entitic vol] 84.9 fL Normal 82.0-98.0 [facility] Comment on above: Performed By: #### 5 3 ####[facility] Monocytes (Bld) [#/Vol] 0.6 10*3/uL Normal 0.1-1.0 [facility] Comment on above: Performed By: #### 5 3 ####[facility] MONOS 9.2 % Normal 5.0-12.0 [facility] Comment on above: Performed By: #### 5 3 ####[facility] Neutrophils/100 WBC (Bld) 63.4 % Normal 40.0-72.0 [facility] Comment on above: Performed By: #### 5 3 ####[facility] [place] [address], [facility] Nucleated RBC/100 WBC (Bld) [Ratio] 0 % Normal 0-0 [facility] Comment on above: Performed By: #### 5 0103 ####[facility] PLAT CNT 155 10*3/uL Normal 150-400 [facility] Comment on above: Performed By: #### 5 0103 ####[facility] RBC (Bld) [#/Vol] 5.31 10*6/uL Normal 4.20-5.70 The [facility] Comment on above: Performed By: #### 5 0103 ####[facility] WBC (Bld) [#/Vol] 6.06 10*3/uL Normal 4.00-10.60 [facility] Comment on above: Performed By: #### 5 0103 ####[facility] PORTABLE CHEST 1 VIEWon 09-01 PORTABLE CHEST 1 VIEW [facility] Department of Radiology [address] [place] [address] Patient Name: SALOMÓN JUSTICE : 1960 Sex: M Age: Race: White Pt. Location: [facility] Patient Status: E Ordered Date: 09/15/2021 1:00:00 PM Completed Date: 09/15/2021 01:31 PM Requesting Provider: SAM CONTRERAS Attending Provider: JUJU PARKS Report Copy To: Signs & Symptoms: Chest Pain History: Comments: evaluate for Aspiration Exam: PORTABLE CHEST 1 VIEW PORTABLE CHEST 1 VIEW 09/15/2021 1:31 PM CLINICAL INDICATIONS: Chest Pain TECHNOLOGIST COMMENTS: chest pain h/o open heart surgery 2002 QUESTION FOR THE RADIOLOGIST: evaluate for Aspiration PROTOCOL: AP(PA) view was obtained. COMPARISON: 11/10/2012 FINDINGS: Heart is enlarged. Likely somewhat magnified by portable technique. Numerous sternotomy wires appear intact. Coronary artery stent projects over left heart border. Mild pulmonary markings prominence may indicate some degree of congestion. No dense consolidation or effusion. IMPRESSION: * Mild prominence of basilar pulmonary markings may indicate some degree of congestion. Correlate clinically. Electronically signed: Alex Quintana. Transcribed by: [email or web address], User Resident: ALEX QUINTANA Electronically Signed by: ALEX QUINTANA @ 09/15/2021 01:45 PM I personally read this/these film(s) with this resident Normal [facility] Comment on above: Order Comment: evalu ate for Aspiration TROPONIN-Ion 09-15-2021 Troponin I.cardiac [Mass/Vol] 0.00 ng/mL Normal 0.00-0.04 [facility] Comment on above: Result Comment: REFE RENCE RANGES: 0.00 - 0.04 ng/ml NORMAL 0.05 - 0.50 ng/ml INDETERMINATE > 0.50 ng/ml CONSISTENT WITH AN M.I. Performed By: #### [id number], [id number] ####[facility] [place] [address], [facility] Encounters Encounter Date Encounter Type Care Provider Facility Start: 09-14-2023 End: 09-14-2023 ambulatory DEBORAH CRANE [facility] Start: 04-20-2023 End: 04-20-2023 ambulatory HILLARY ARRIAGA [facility] Start: 10-22-2022 End: 10-23-[address] HILLARY ARRIAGA Facility: Start: 10-13-2022 End: 10-13-2022 ambulatory HILLARY ARRIAGA [facility] Start: 07-07-2022 End: 07-08-[address] MITESH VÁSQUEZ Facility: Start: 05-24-2022 End: 05-25-2022 ambulatory Horace MANDEL Facility:[facility] Start: 09-15-2021 End: 09-17-2021 ambulatory REFERRED SELF Facility:[facility] Procedures Date Procedure Procedure Detail Performing Clinician Start: 07-07-[address] HILLARY MCCARTNEY Comment on above: Performed By: #### P SAD #### [facility] [address] [address] [address] Anderson Powers Payers Date Payer Category Payer Unknown [id number] 1960 Unknown [id number] 1960 Unknown [id number] 1959 Medicaid [id number] 1959 Private Health Insurance [id number] Progress note 09-14-2023 Note Date & Type Note Facility 09-14-2023 Note Script for vascepa a nd leqvio sent to pharmacy- pt is adamant he cannot give myself a shot. Repeat Lipid level in 3 months [facility] Progress note 09-14-2023 Note Date & Type Note Facility 09-14-2023 Note Hypertension is stab le and well controlled 120/82 continue diltiazem, imdur, metoprolol [facility] Progress note 09-14-2023 Note Date & Type Note Facility 09-14-2023 Note Coronary artery dise ase is stable No concerning symptoms Continue GDMT- aSa, plavix, colchicine, imdur, and metoprolol continue risk factor modifications- heart healthy diet, regular exercise as tolerated and continue all medications. [facility] Progress note 09-14-2023 Note Date & Type Note Facility 09-14-2023 Note Patient here to disc uss possibly starting Leqvio per Dr. Johnson. He is requesting a prescription for penicillin for his heart. States it feels like it was hit with a hammer and is infected . C/o a lot of chest pain at rest . States when he's working in the yard he feels great. Review of Systems Cardiovascular: Positive for chest pain, leg swelling (intermittent) and orthopnea. Respiratory: Positive for shortness of breath. Neurological: Positive for light-headedness ( always ). All other systems reviewed and are negative. [facility] Progress note 09-14-2023 Note Date & Type Note Facility 09-14-2023 Note [facility] ESS NOTE HPI: Salomón Justice is a 63 y.o. male here for leqvio HPI Pt presents today for known CAD, HTN, AO stenosis, HPL. Patient here to discuss possibly starting Leqvio per Dr. Johnson. He is requesting a prescription for penicillin for his heart. States it feels like it was hit with a hammer and is infected . C/o a lot of chest pain at rest . States when he's working in the yard he feels great. Denied fever, chills, recent illness or ulceration/wound. Denied chest pain with exertion, and states SOB with exertion, denied orthopnea, or palpitations. States leg swelling is no worse than usual. Review of Systems Cardiovascular: Positive for chest pain, leg swelling (intermittent) and orthopnea. Respiratory: Positive for shortness of breath. Neurological: Positive for light-headedness ( always ). All other systems reviewed and are negative. Previous HPI per Dr Arriaga Chief Complaint: Patient here for 3 mo follow up CAD, hypertension, and aortic stenosis murmur. He had echo after last apt in September 2022. He is taking 4 lose dose aspirin daily, in addition to Plavix. Has heaviness in his chest at rest. Says his SOB remains unchanged. HPI: Salomón Justice is a 63 y.o. 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 This occurred at rest. Unrelated to exertion. No associated shortness of breath. It lasted for a day or 2 and resolved. 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 He has not had investigations for this for many years. He denies exertional chest pain. He has no orthopnea, he denies paroxysmal external dyspnea or lower extremity edema. He confirms that he is on metoprolol. He took Repatha many months ago. Update 04/20/2023: Doing well. Chest pain is stable. No significant changes to his symptoms. Visit Vitals BP 120/82 (BP Location: Right arm, Patient Position: Sitting) Pulse 57 Ht 1.778 m (5' 10 ) Wt 112 kg (248 lb) SpO2 96% BMI 35.58 kg/m??? BSA 2.35 m??? Allergies Allergen Reactions Ranolazine Other Medications: Current Outpatient Medications on File Prior to Visit Medication Sig Dispense Refill aspirin 81 mg chewable tablet Chew 81 mg 2 times daily. clopidogrel (Plavix) 75 mg tablet Take 1 tablet (75 mg) by mouth in the morning. 90 tablet 3 colchicine 0.6 mg tablet Take 1/2 (one-half) tablet by mouth once daily 45 tablet 3 dilTIAZem (Cardizem) 120 mg immediate release tablet TAKE 1 TABLET BY MOUTH AT BEDTIME 90 tablet 3 dilTIAZem CD (Cardizem CD) 240 mg 24 hr capsule Take 1 capsule by mouth once daily 90 capsule 3 isosorbide mononitrate ER (Imdur) 30 mg 24 hr tablet TAKE 1 & 1/2 (ONE & ONE-HALF) TABLETS BY MOUTH ONCE DAILY 135 tablet 3 metoprolol tartrate (Lopressor) 100 mg tablet Take 1 tablet by mouth twice daily 180 tablet 3 [DISCONTINUED] icosapent ethyL (Vascepa) 1 gram capsule Take 2 capsules (2 g) by mouth with breakfast and with evening meal. 360 capsule 3 [DISCONTINUED] nitroglycerin (Nitrostat) 0.4 mg SL tablet nitroglycerin 0.4 mg sublingual tablet alirocumab (Praluent Pen) 150 mg/mL pen injector Inject 150 mg under the skin every 14 (fourteen) days. 2 mL 11 No current facility-administered medications on file prior to visit. Physical Exam: Constitutional: Appearance: Normal appearance. Without apparent distress, obese, chronically ill HENT: Head: Normocephalic and atraumatic. Nose: Nose normal. Mouth/Throat: Mouth: Mucous membranes are moist. Eyes: Extraocular Movements: Extraocular movements intact. Conjunctiva/sclera: Conjunctivae normal. Neck: Vascular: No JVD. Cardiovascular: Rate and Rhythm: Normal rate and regular rhythm. Pulses: Dorsalis pedis pulses are 3 on the right side and 3on the left side. Posterior tibial pulses are 3 on the right side and 3 on the left side. Heart sounds: Normal heart sounds, S1 normal and S2 normal. Pulmonary: Effort: Pulmonary effort is normal. Breath sounds: Normal breath sounds. Abdominal: General: Bowel sounds are normal. Palpations: Abdomen is soft. Musculoskeletal: General: Normal range of motion. Cervical back: Normal range of motion. Right lower leg: No edema. Left lower leg: No edema. Skin: General: Skin is warm and dry. Capillary Refill: Capillary refill takes less than 2 seconds. Neurological: General: No focal deficit present. Mental Status: he is alert and oriented to person, place, and time. Psychiatric: Mood and Affect: Mood normal. Behavior: Behavior normal. Thought Content: Thought content normal. Judgment: Judgment normal. Labs: Reviewed labs with pt and goal LDL 55-70- currently LDL 107, Liver function n (more content not included)... [facility] Progress note 04-20-2023 Note Date & Type Note Facility 04-20-2023 Note [facility] Cardiology Clinic Note Chief Complaint: Patient here for 3 mo follow up CAD, hypertension, and aortic stenosis murmur. He had echo after last apt in September 2022. He is taking 4 lose dose aspirin daily, in addition to Plavix. Has heaviness in his chest at rest. Says his SOB remains unchanged. HPI: Salomón Justice is a 63 y.o. 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 This occurred at rest. Unrelated to exertion. No associated shortness of breath. It lasted for a day or 2 and resolved. 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 He has not had investigations for this for many years. He denies exertional chest pain. He has no orthopnea, he denies paroxysmal external dyspnea or lower extremity edema. He confirms that he is on metoprolol. He took Leqvio many months ago. Update 04/20/2023: Doing well. Chest pain is stable. No significant changes to his symptoms. Cardiology ROS: Review of Systems Cardiovascular: Positive for chest pain, dyspnea on exertion, leg swelling and palpitations. Neurological: Positive for light-headedness ( always ). All other systems reviewed and are negative. Past Medical History He has no past medical history on file. Surgical History He has no past surgical history on file. Social History He has no history on file for tobacco use, alcohol use, and drug use. Family History No family history on file. Allergies Ranolazine Medications Current Outpatient Medications: alirocumab (Praluent Pen) 150 mg/mL pen injector, Inject 150 mg under the skin every 14 (fourteen) days., Disp: 2 mL, Rfl: 11 aspirin 81 mg chewable tablet, in the morning., Disp: , Rfl: clopidogrel (Plavix) 75 mg tablet, Take 1 tablet by mouth once daily, Disp: 90 tablet, Rfl: 0 colchicine 0.6 mg tablet, Take 1/2 (one-half) tablet by mouth once daily, Disp: 45 tablet, Rfl: 3 dilTIAZem (Cardizem) 120 mg immediate release tablet, TAKE 1 TABLET BY MOUTH AT BEDTIME, Disp: 90 tablet, Rfl: 0 dilTIAZem CD (Cardizem CD) 240 mg 24 hr capsule, Take 1 capsule by mouth once daily for 90 days, Disp: 90 capsule, Rfl: 0 dilTIAZem ER (Tiazac) 240 mg 24 hr capsule, diltiazem CD 240 mg capsule,extended release 24 hr, Disp: , Rfl: icosapent ethyL (Vascepa) 1 gram capsule, , Disp: , Rfl: isosorbide mononitrate ER (Imdur) 30 mg 24 hr tablet, TAKE 1 & 1/2 (ONE & ONE-HALF) TABLETS BY MOUTH ONCE DAILY, Disp: 135 tablet, Rfl: 0 metoprolol tartrate (Lopressor) 100 mg tablet, Take 1 tablet by mouth twice daily, Disp: 180 tablet, Rfl: 0 nitroglycerin (Nitrostat) 0.4 mg SL tablet, nitroglycerin 0.4 mg sublingual tablet, Disp: , Rfl: OneTouch Verio test strips strip, USE TO TEST DAILY AND NEEDED, Disp: , Rfl: tamsulosin (Flomax) 0.4 mg 24 hr capsule, , Disp: , Rfl: Last Recorded Vitals BP 106/69 (BP Location: Left arm, Patient Position: Sitting) Pulse 52 Ht 1.778 m (5' 10 ) Wt 112 kg (248 lb) SpO2 96% BMI 35.58 kg/m??? Physical Examination: GENERAL: alert and oriented x3, well developed, in no acute distress. HEAD: atraumatic, normocephalic. EYES: FELICIANO, EOMI. NECK: trachea midline, no JVD present, no carotid bruits present. CARDIAC: S1, S2 present. RRR. No murmur, rubs, or gallops. RESPIRATORY: CTAB, no increased effort of breathing, no rales, rhonchi, or wheezing. ABDOMEN: soft, nontender, nondistended. EXTREMITIES: no lower extremity edema, peripheral pulses are 2+ bilaterally. No rash/skin discoloration present. NEURO: strength/sensation equal and symmetric in bilateral upper and lower extremities. PSYCH: appropriate mood, affect, and judgement. Investigations: Echocardiogram 10/13/2022 Global left ventricular systolic function is normal. EF is 60%. No regional wall motion abnormality. Normal diastolic function. No left ventricular hypertrophy. The right ventricle is normal in size and systolic function. Normal right-sided pressures. The left atrium is mildly enlarged. Mild to moderate mitral regurgitation. Mild aortic valve regurgitation. Lipid profile 09/2021: Total cholesterol 193, triglycerides 208, HDL 30, LDL 121 Physician: Mario Fisher M.D. Division of Service Date: 09/16/2021 Cardiovascular Laboratory Report CLINICAL PRESENTATION: The patient is a 61-year-old male with a complex past medical history including severe CAD with many prior coronary interventions. He has a history of CABG as well as he reports more than 20 prior stents. He does have previously placed diffuse stents throughout the entire LAD and circumflex territories and left main coronary artery seen on prior angiogram from 2016. He has had prior ISR. He also has hyp (more content not included)... [facility] Progress note 10-13-2022 Note Date & Type Note Facility 10-13-2022 Note [facility] Cardiology Clinic Note Chief Complaint: Follow-up HPI: Salomón Justice is a 62 y.o. 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 This occurred at rest. Unrelated to exertion. No associated shortness of breath. It lasted for a day or 2 and resolved. 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 He has not had investigations for this for many years. He denies exertional chest pain. He has no orthopnea, he denies paroxysmal external dyspnea or lower extremity edema. He confirms that he is on metoprolol. He took Leqvio many months ago. Cardiology ROS: Review of Systems Constitutional: Positive for fatigue. HENT: Negative. Eyes: Negative. Respiratory: Positive for chest tightness. Cardiovascular: Positive for leg swelling. Past Medical History He has no past medical history on file. Surgical History He has no past surgical history on file. Social History He has no history on file for tobacco use, alcohol use, and drug use. Family History No family history on file. Allergies Patient has no allergy information on record. Medications (Not in a hospital admission) Last Recorded Vitals Patient Vitals for the past 24 hrs: BP Pulse SpO2 Height Weight 10/13/22 0952 110/60 59 98 % 1.778 m (5' 10 ) 116 kg (256 lb) Physical Examination: GENERAL: alert and oriented x3, well developed, in no acute distress. HEAD: atraumatic, normocephalic. EYES: FELICIANO, EOMI. NECK: trachea midline, no JVD present, no carotid bruits present. CARDIAC: S1, S2 present. RRR. Harsh, ejection systolic murmur heard best over the right second intercostal space RESPIRATORY: CTAB, no increased effort of breathing, no rales, rhonchi, or wheezing. ABDOMEN: soft, nontender, nondistended. EXTREMITIES: no lower extremity edema, peripheral pulses are 2+ bilaterally. No rash/skin discoloration present. NEURO: strength/sensation equal and symmetric in bilateral upper and lower extremities. PSYCH: appropriate mood, affect, and judgement. Investigations Lipid profile 09/2021: Total cholesterol 193, triglycerides 208, HDL 30, LDL 121 Physician: Mario Fisher M.Ara Division of Service Date: 09/16/2021 Cardiovascular Laboratory Report CLINICAL PRESENTATION: The patient is a 61-year-old male with a complex past medical history including severe CAD with many prior coronary interventions. He has a history of CABG as well as he reports more than 20 prior stents. He does have previously placed diffuse stents throughout the entire LAD and circumflex territories and left main coronary artery seen on prior angiogram from 2016. He has had prior ISR. He also has hyperlipidemia and is unfortunately intolerant to statins and ezetimibe. He has history of hypertension as well. He reports typical chest pain symptoms occurring at rest and worsening over the last 1 month. Given his history, the findings are concerning for unstable angina, CCS class 4. He now presents for coronary angiogram. IMPRESSION: 1. The culprit lesion is a 90% stenosis of the proximal RCA status post successful PCI with a Synergy 3.0 x 32 mm drug-eluting stent, which was post dilated with a 4.0 mm noncompliant balloon. 2. The PEREZ to LAD is patent. 3. The previously placed stents in the left main and LAD are patent with diffuse moderate in-stent restenosis. 4. The circumflex territory has diffuse in-stent restenosis (ISR) with ostial disease and severe mid vessel disease and severe distal disease. The OM1 is known to be previously occluded. The overall size of the circumflex territory into the OM2 is small to moderate. 5. The right posterolateral artery is occluded within a previously placed stent and is collateralized by epicardial collaterals from the LAD diagonal branch to the posterolateral artery. 6. The PDA is patent with moderate disease in its proximal segment. PLAN: 1. Aggressive medical therapy for secondary prevention of CAD. 2. Aspirin and Plavix daily long-term dual antiplatelet therapy given the very high number of stents the patient has. 3. The patient has severe CAD with multiple prior stent procedures and prior CABG, but is unfortunately statin intolerant. He reports intolerance to at least 3 prior statins including Zocor and Lipitor and Crestor. He also has a prior intolerance to ezetimibe. The patient is a good candidate for PCSK9 inhibitor therapy. He can be treated with Repatha or Praluent, which are monoclonal antibodies against PCSK9. If we cannot arrange insurance coverage or if this is not a viable option, then he could be treated with a newer agent, which is Leqvio (inclisiran), which is a (more content not included)... [facility] Discharge summary note 09-17-2021 Note Date & Type Note Facility 09-17-2021 Note MR#: [id number] [facility] Pt. Name: Salomón Justice Admitted: 09/15/2021 Discharged: 09/17/2021 Date of : 1960 Physician: Jaci Benites MD DISCHARGE SUMMARY PRIMARY CARE PHYSICIAN: Mitesh Vásquez D.O. CONSULTING PHYSICIAN: Cardiology Team. FINAL DIAGNOSES: 1. Unstable angina, status post cardiac cath, stent deployment to right coronary artery, stable for discharge. 2. Coronary artery disease with history of PCI medical management. 3. Essential hypertension, controlled. 4. Unspecified dyslipidemia, patient allergic to statins, intolerant to Zetia as well. Further evaluation as an outpatient. HOSPITAL COURSE: This is a 61-year-old male with past medical history of coronary artery disease with history of multiple PCIs along with essential hypertension, came to the hospital with chest pain concerning for unstable angina. So, the patient was seen by Cardiology, taken for cardiac cath, which the patient tolerated very well, had a stent deployed to RCA, so the patient was maintained on medical management since the patient is allergic to statins and intolerant to Zetia, the patient advised to follow up with PCP and Cardiology as an outpatient for further medication adjustment as an outpatient. The patient will be started on colchicine for chronic management of to prevent in-stent restenosis. He will be discharged on colchicine on top of his other regimen. Overall, patient is doing well. No more chest pain reported. The patient advised to be on metoprolol, but he will follow up with PCP for further recommendations to switch his beta jr. DISCHARGE PHYSICAL EXAM: GENERAL: When examined today, hemodynamically stable. NECK: Supple. CARDIOVASCULAR: Regular. ABDOMEN: Positive bowel sounds. EXTREMITIES: No pedal edema. LABORATORY DATA: Reviewed. MEDICATIONS: Per the computer reconciliation list. TIME SPENT: Time spent in coordination of care 35 minutes. Electronically Signed by: Jaci Benites MD 09/18/2021 01:02 P Jaci Benites MD Date Dict: 09/17/2021/09:30 A/Jaci Benites MD Date Trans: 09/17/2021 09:46 A/raphael [id number] cc: Mitesh Vásquez D.O. [address] [place] [address] [facility] [address] [facility] Summary Purpose Family History No Family History Records FoundNo Family History Records FoundNo Family History Records FoundNo Family History Records Found Advance Directives No Advanced Directives Records FoundNo Advanced Directives Records FoundNo Advanced Directives Records FoundNo Advanced Directives Records Found Additional Source Comments (unrecognized sect ion and content) No Status Records FoundNo Status Records FoundNo Status Records FoundNo Status Records Found INFORMATION SOURCE (unrecogn ized section and content) DATE CREATED AUTHOR 03/31/2022 [facility] DATE CREATED AUTHOR AUTHOR'S ORGANIZ ATION 08/24/2022 [facility] DATE CREATED AUTHOR AUTHOR'S ORGANIZ ATION 10/25/2022 [facility] DATE CREATED AUTHOR AUTHOR'S ORGANIZ ATION 10/13/2023 [facility] FOR RECORDS PERTAINING TO PATIENTS WHO ARE OR HAVE BEEN ENROLLED IN A CHEMICAL DEPENDENCY/SUBSTANCEABUSE PROGRAM, SOME INFORMATION MAY BE OMITTED. This clinical summary was aggregated from multiple sources. Caution should be exercised in using it in the provision of clinical care. This summary normalizes information from multiple sources, and as a consequence, information in this document may materially change the coding, format and clinical context of patient data. In addition, data may be omitted in some cases. CLINICAL DECISIONS SHOULD BE BASED ON THE PRIMARY CLINICAL RECORDS. [employer] provides no warranty or guarantee of the accuracy or completeness of information in this document.
[2023-11-01] MEDS: REGADENOSON 0.4 MG/5 ML SYRINGE 0.400000000000000022 MG IV (09:44)
== END 2023-11-01 08:10 | disposition home or self-care (01) ==
LOC: NM 08:09
PROVIDERS: Visit Provider Internal Medicine Interventional Cardiology
DX: R07.9 Chest pain, unspecified (principal)
CPT/HCPCS: 78452; 93017; A9500; J2785

== ENCOUNTER 2023-11-16 11:10 | Outpatient (OUT) | payer MEDICARE, MEDICAID, SELFPAY ==
--- OUTSIDE RECORDS SUMMARY | 2023-11-16 11:24 | XMS_ITS | CCD ---
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 Name Role Phone SELF, REFERRED Referring Unavailable HOUSE, MITESH Primary Care Unavailable KIRK, JACI Admitting Unavailable KIRK, JACI Attending Unavailable Horace MANDEL Attending Unavailable ELTAHAWDanisha, DR THORNTON Consulting Unavailable HOUSE, DR VASQUES Primary Care Unavailable ELTAHAWY, DR THORNTON Attending Unavailable ELTAHAWDanisha, DR THORNTON Admitting Unavailable ZIEBER, DR CHRISTA Macias Consulting Unavailable HOUSE, DR VASQUES Admitting Unavailable HOUSE, DR VASQUES Primary Care Unavailable HOUSE, DR VASQUES Consulting Unavailable ILLI[place]IS, DR VASQUES Attending Unavailable ELTAHAWY, HILLARY Attending Unavailable ROSA MARIADEBORAH Galloway Attending Unavailable ELTAHAWY, HILLARY Attending Unavailable ELTAHAWY, EHAB Referring Unavailable Allergies Allergy Classification Reported Allergen(s) Allergy Type Date of Onset Reaction(s) Facility (1 source) black walnut pollen extract Drug Allergy 06-16-2016 [facility] Repository (1 source) ranolazine Drug Allergy 06-11-2009 [facility] Repository (1 source) RENAX Drug allergy (disorder) 12-04-2012 [facility] Repository (1 source) ranolazine; Translations: [RANOLAZINE] Drug Allergy 07-19-2014 [facility] Repository Problems Active Problems Problem Classification Problem Date Documented Date Episodic/Chronic Coronary atherosclerosis and other heart disease (4 sources) Atherosclerotic heart disease of [place] coronary artery with unstable angina pectoris; Translations: [Atherosclerotic heart disease of [place] coronary artery without angina pectoris] Onset: 03-31-2022 [...] Range Facility Office Visiton 09-14-2023 Follow-up visit [id number] Salomón Justice 1960 M Date Provider Department Center 09/14/2023 120-ROSA MARIA, DEBORAH [facility] No family history on file Level of Service:86129 HI OFFICE/OUTPATIENT ESTABLISHED MOD MDM 30 MIN Normal [facility] Office Visiton 04-20-2023 Follow-up visit [id number] Salomón Justice 1960 M Date Provider Department Center 04/20/2023 271-CORRIETAALISHA, HILLARY [facility] No family history on file Level of Service:74460 HI OFFICE/OUTPATIENT ESTABLISHED LOW MDM 20-29 MIN Normal [facility] LIPID PROFILEon 10-22-2022 CHOL-HDL RATIO NORM SEE BELOW Normal [facility] Comment on above: Result Comment: 3.3 - 4.4 LOW RISK 4.4 - 7.1 AVERAGE RISK 7.1 - 11.0 MODERATE RISK >11.0 HIGH RISK Performed By: #### L SUZANNE, LIPID #### [facility] [address] [address] [address] Anderson Powers Cholesterol [Mass/Vol] 191 mg/dL Normal <=200 [facility] Comment on above: Performed By: #### L IVER, LIPID #### [facility] [address] [address] [address] Anderson Powers Cholesterol in HDL [Mass/Vol] 34 mg/dL Critically low 40-60 [facility] Comment on above: Performed By: #### L IVER, LIPID #### [facility] [address] [address] [address] Anderson Powers Cholesterol in LDL [Mass/Vol] 107.8 mg/dL Normal [facility] Comment on above: Performed By: #### L IVER, LIPID #### [facility] [address] [address] [address] Anderson Powers Cholesterol.total/Ch olesterol in HDL [Mass ratio] 5.6 {ratio} Normal [facility] Comment on above: Performed By: #### L IVER, LIPID #### [facility] [address] [address] [address] Anderson Powers HDL NORMAL > or = 60 mg/dl - LOW CARDIOVASCULAR RISK <40 mg/dl - HIGH CARDIOVASCULAR RISK Normal [facility] Comment on above: Performed By: #### L IVER, LIPID #### [facility] [address] [address] [address] Anderson Powers LDL CALC NORMAL SEE BELOW Normal [facility] Comment on above: Result Comment: <100 mg/dl OPTIMAL 100 - 129 mg/dl NEAR OR ABOVE OPTIMAL 130 - 159 mg/dl BORDERLINE HIGH 160 - 189 mg/dl HIGH >190 mg/dl VERY HIGH Performed By: #### L IVER, LIPID #### [facility] [address] [address] [address] Anderson Powers Triglyceride [Mass/Vol] 246 mg/dL Critically high <=150 [facility] Comment on above: Performed By: #### L IVER, LIPID #### [facility] [address] [address] [address] Anderson Powers VLDL CALC 49.2 mg/dL Normal [facility] Comment on above: Performed By: #### L IVER, LIPID #### [facility] [address] [address] [address] Anderson Powers LIVER PROFILEon 10-22-2022 Albumin [Mass/Vol] 4.0 g/dL Normal 3.4-5.0 [facility] Comment on above: Performed By: #### L IVER, LIPID #### [facility] [address] [address] [address] Anderson Powers Albumin/Globulin [Mass ratio] 1.5 {ratio} Normal [facility] Comment on above: Performed By: #### L IVER, LIPID #### [facility] [address] [address] [address] Anderson Powers ALP [Catalytic activity/Vol] 124 U/L Critically high 46-116 [facility] Comment on above: Performed By: #### L IVER, LIPID #### [facility] [address] [place] [address] Dr. Anderson Powers ALT [Catalytic activity/Vol] 55 U/L Normal 16-63 [facility] Comment on above: Performed By: #### L IVER, LIPID #### [facility] [address] [place] [address] Dr. Anderson Powers AST [Catalytic activity/Vol] 21 U/L Normal 15-37 [facility] Comment on above: Performed By: #### L IVER, LIPID #### [facility] [address] [place] [address] Dr. Anderson Powers BILI, CONJUGATED 0.1 mg/dL Normal 0.0-0.2 [facility] Comment on above: Performed By: #### L IVER, LIPID #### [facility] [address] [address] [address] Anderson Powers Bilirubin [Mass/Vol] 0.5 mg/dL Normal 0.2-1.0 [facility] Comment on above: Performed By: #### L IVER, LIPID #### [facility] [address] [address] [address] Anderson Powers Globulin (S) [Mass/Vol] 2.7 g/dL Normal [facility] Comment on above: Performed By: #### L IVER, LIPID #### [facility] [address] [address] [address] Anderson Powers Protein [Mass/Vol] 6.7 g/dL Normal 6.4-8.2 [facility] Comment on above: Performed By: #### L IVJAS LIPID #### [facility] [address] [address] [address] Anderson Powers XR CSPINE MIN 4 [...] by: CHRISTA BARRAGAN Date: 2022-10-22 11:08 Normal [facility] Office Visiton 10-13-2022 Follow-up visit [id number] Salomón Justice 1960 M Date Provider Department Center 10/13/2022 271-HILLARY ARRIAGA [facility] Cat . No family history on file Level of Service:13158 HI OFFICE/OUTPATIENT ESTABLISHED MOD MDM 30-39 MIN Reason for Visit and Comments: heart pain [Other] - Patient states that last week it felt like someone was sticking a needle in heart.patient states there's tightness in the chest every now and than Normal [facility] Registrationon 08-18-2022 Registration [id number]# 1.00CD:127 Normal [facility] CBC AUTO DIFFon 07-07-2022 BASO # 0.0 103/ul Normal 0.0-0.1 [facility] Comment on above: Performed By: #### C BC #### [facility] [address] [address] [address] Anderson Powers Basophils/100 WBC (Bld) 0.7 % Normal 0.2-2.0 [facility] Comment on above: Performed By: #### C BC #### [facility] [address] [place] [address] Dr. Anderson Powers EO # 0.1 103/ul Normal 0.0-0.7 [facility] Comment on above: Performed By: #### C BC #### [facility] [address] [place] [address] Dr. Anderson Powers Eosinophils/100 WBC (Bld) 1.6 % Normal 0.9-7.0 [facility] Comment on above: Performed By: #### C BC #### [facility] [address] [place] [address] Dr. Anderson Powers Erythrocyte distribution width (RBC) [Ratio] 13.2 % Normal 11.0-15.0 [facility] Comment on above: Performed By: #### C BC #### [facility] [address] [place] [address] Dr. Anderson Powers Hematocrit (Bld) [Volume fraction] 47.3 % Normal 42.0-54.0 [facility] Comment on above: Performed By: #### C BC #### [facility] [address] [place] [address] Dr. Anderson Powers Hemoglobin (Bld) [Mass/Vol] 16.2 g/dL Normal 14.0-18.0 [facility] Comment on above: Performed By: #### C BC #### [facility] [address] [place] [address] Dr. Anderson Powers IG # 0.03 10e3/ul Normal 0.00-0.03 [facility] Comment on above: Performed By: #### C BC #### [facility] [address] [place] [address] Dr. Anderson Powers IG % 0.5 % Normal 0.0-0.5 [facility] Comment on above: Performed By: #### C BC #### [facility] [address] [place] [address] Dr. Anderson Powers LYMPH # 1.4 103/ul Normal 1.2-3.8 [facility] Comment on above: Performed By: #### C BC #### [facility] [address] [place] [address] Dr. Anderson Powers Lymphocytes/100 WBC (Bld) 24.1 % Normal 20.5-60.0 [facility] Comment on above: Performed By: #### C BC #### [facility] [address] [place] [address] Dr. Anderson Powers MANUAL DIFF REQ NO Normal [facility] Comment on above: Performed By: #### C BC #### [facility] [address] [place] [address] Dr. Anderson Powers MCH (RBC) [Entitic mass] 29.4 pg Normal 25.9-34.0 [facility] Comment on above: Performed By: #### C BC #### [facility] [address] [place] [address] Dr. Anderson Powers MCHC (RBC) [Mass/Vol] 34.2 g/dL Normal 29.9-35.2 [facility] Comment on above: Performed By: #### C BC #### [facility] [address] [place] [address] Dr. Anderson Powers MCV (RBC) [Entitic vol] 85.8 fL Normal 80.0-94.0 [facility] Comment on above: Performed By: #### C BC #### [facility] [address] [place] [address] Dr. Anderson Powers MONO # 0.5 103/ul Normal 0.3-0.8 [facility] Comment on above: Performed By: #### C BC #### [facility] [address] [place] [address] Dr. Anderson Powers Monocytes/100 WBC (Bld) 8.9 % Normal 1.7-12.0 [facility] Comment on above: Performed By: #### C BC #### [facility] [address] [place] [address] Dr. Anderson Powers NEUT # 3.6 103/ul Normal 1.4-6.5 [facility] Comment on above: Performed By: #### C BC #### [facility] [address] [address] [address] Anderson Powers Neutrophils/100 WBC (Bld) 64.2 % Normal 43.0-75.0 [facility] Comment on above: Performed By: #### C BC #### [facility] [address] [address] [address] Anderson Powers Platelet mean volume (Bld) [Entitic vol] 10.6 fL Normal 9.5-13.5 [facility] Comment on above: Performed By: #### C BC #### [facility] [address] [address] [address] Anderson Powers PLT 148 103/ul Critically low 150-450 [facility] Comment on above: Performed By: #### C BC #### [facility] [address] [place] [address] Dr. Anderson Powers RBC 5.51 106/ul Normal 4.70-6.10 [facility] Comment on above: Performed By: #### C BC #### [facility] [address] [address] [address] Anderson Powers WBC 5.6 103/ul Normal 4.0-11.0 [facility] Comment on above: Performed By: #### C BC #### [facility] [address] [place] [address] Dr. Anderson Powers GLYCOHEMOGLOBIN A1Con 2021 ADA RECOMMENDATION SEE BELOW Normal [facility] Comment on above: Result Comment: ADA RECOMMENDED LIMIT 4.0 - 6.0 ADA THERAPEUTIC TARGET < 7.0 ACTION SUGGESTED > 7.0 Performed By: #### A 1C #### [facility] [address] [place] [address] Dr. Anderson Powers Glucose [Mass/Vol] 194 mg/dL Normal [facility] Comment on above: Performed By: #### A 1C #### [facility] [address] [place] [address] Dr. Anderson Powers HbA1c (Bld) [Mass fraction] 8.4 % Critically high 4.5-6.2 [facility] Comment on above: Performed By: #### A 1C #### [facility] [address] [address] [address] Anderson Powers MICROALBUMIN, RAND URon 12-0 mALB <1.3 Normal <=30.0 [facility] Comment on above: Performed By: #### M ALBR #### [facility] [address] [place] [address] Dr. Anderson Powers PROF 14(COMP METB)on 022 Albumin [Mass/Vol] 3.9 g/dL Normal 3.4-5.0 [facility] Comment on above: Performed By: #### C MP #### [facility] [address] [place] [address] Dr. Anderson Powers Albumin/Globulin [Mass ratio] 1.4 {ratio} Normal [facility] Comment on above: Performed By: #### C MP #### [facility] [address] [place] [address] Dr. Anderson Powers ALP [Catalytic activity/Vol] 108 U/L Normal 46-116 [facility] Comment on above: Performed By: #### C MP #### [facility] [address] [place] [address] Dr. Anderson Powers ALT [Catalytic activity/Vol] 49 U/L Normal 16-63 [facility] Comment on above: Performed By: #### C MP #### [facility] [address] [place] [address] Dr. Anderson Powers Anion gap [Moles/Vol] 10.6 mmol/L Normal [facility] Comment on above: Performed By: #### C MP #### [facility] [address] [place] [address] Dr. Anderson Powers AST [Catalytic activity/Vol] 18 U/L Normal 15-37 [facility] Comment on above: Performed By: #### C MP #### [facility] [address] [place] [address] Dr. Anderson Powers Bilirubin [Mass/Vol] 0.4 mg/dL Normal 0.2-1.0 [facility] Comment on above: Performed By: #### C MP #### [facility] [address] [address] [address] Anderson Powers Calcium [Mass/Vol] 9.0 mg/dL Normal 8.5-10.1 [facility] Comment on above: Performed By: #### C MP #### [facility] [address] [address] [address] Anderson Powers Chloride [Moles/Vol] 102 mmol/L Normal 98-107 [facility] Comment on above: Performed By: #### C MP #### [facility] [address] [address] [address] Anderson Powers CO2 [Moles/Vol] 31.0 mmol/L Normal 21.0-32.0 [facility] Comment on above: Performed By: #### C MP #### [facility] [address] [place] [address] Dr. Anderson Powers Creatinine [Mass/Vol] 0.98 mg/dL Normal 0.70-1.30 [facility] Comment on above: Performed By: #### C MP #### [facility] [address] [place] [address] Dr. Anderson Powers EGFR-AF [place] >60 Normal >=60 [facility] Comment on above: Performed By: #### C MP #### [facility] [address] [place] [address] Dr. Anderson Powers EGFR-NON AF [place] >60 Normal >=60 [facility] Comment on above: Performed By: #### C MP #### [facility] [address] [place] [address] Dr. Anderson Powers Globulin (S) [Mass/Vol] 2.8 g/dL Normal [facility] Comment on above: Performed By: #### C MP #### [facility] [address] [place] [address] Dr. Anderson Powers Glucose [Mass/Vol] 261 mg/dL Critically high 74-106 T [facility] Comment on above: Performed By: #### C MP #### [facility] [address] [place] [address] Dr. Anderson Powers Potassium [Moles/Vol] 4.6 mmol/L Normal 3.5-5.1 [facility] Comment on above: Performed By: #### C MP #### [facility] [address] [address] [address] Anderson Powers Protein [Mass/Vol] 6.7 g/dL Normal 6.4-8.2 [facility] Comment on above: Performed By: #### C MP #### [facility] [address] [address] [address] Anderson Powers Sodium [Moles/Vol] 139 mmol/L Normal 136-145 [facility] Comment on above: Performed By: #### C MP #### [facility] [address] [address] [address] Anderson Powers Urea nitrogen [Mass/Vol] 19.0 mg/dL Critically high 7.0-18.0 [facility] Comment on above: Performed By: #### C MP #### [facility] [address] [address] [address] Anderson Powers Urea nitrogen/Creatinine [Mass ratio] 19.4 mg/mg Normal [facility] Comment on above: Performed By: #### C MP #### [facility] [address] [address] [address] Anderson Powers Consenton 05-24-2022 Consent [id number] #[id number]:127 Normal [facility] CREATININE BLOODon Creatinine [Mass/Vol] 0.85 mg/dL Normal 0.70-1.30 [facility] Comment on above: Order Comment: No: D o not add to previous draw Performed By: #### 2 5656 #### [facility] [address] [place] [address], [facility] GFR/1.73 sq M.predicted among blacks MDRD (S/P/Bld) [Vol rate/Area] mL/min/{1.73_m2} Normal >60 [facility] Comment on above: Order Comment: No: D o not add to previous draw Performed By: #### 2 5656 #### [facility] [address] [facility]. [address] GFR/1.73 sq M.predicted among non-blacks MDRD (S/P/Bld) [Vol rate/Area] mL/min/{1.73_m2} Normal >60 [facility] Comment on above: Order Comment: No: D o not add to previous draw Performed By: #### 2 5656 #### [facility] [address] Cardiovascular Lab Reporton 09-17-2021 Cardiovascular Lab Report [facility] Salomón Garner MR #: [id number] Department of Physician: Mario Fisher M.D. Division of Service Date: 09/16/2021 Cardiology Birthdate: 1960 Adult Cardiovascular Room #: 4CD [id number] [address] [place] [address] Cardiovascular Laboratory Report CLINICAL PRESENTATION: The patient [...] the REDUCE-IT trial. 6. Outpatient followup with [facility]. 7. Referral to cardiac rehabilitation. PROCEDURES: [...] ultrasound guidance and micropuncture access technique, a 6-Filipino sheath placed in right common femoral artery. Limited femoral angiogram was performed, which showed adequate placement of right common femoral artery. Next, coronary bypass graft angiogram was performed. All catheter exchanges were made over the J-tip guidewire. A 6-Filipino JL4 was engaged to the left main coronary artery. A 6-Filipino JR4 was engaged in right coronary artery. A 6-Filipino BONI catheter was engaged to the left [...] was maintained greater than 200 seconds. A 6-Filipino JR4 guide was engaged to right coronary [...] Th (more content not included)... Normal [facility] APTTon 09-16-2021 aPTT Coag (Bld) [Time] 30.9 s Normal 25.0-35.0 [facility] Comment on above: Order Comment: evalu ate [...] FOR THIS PURPOSE. Performed By: #### 5 9889, 22733 ####[facility] [place] [address], [facility] BASIC METABOLIC PANELon 09-01 Calcium [Mass/Vol] 8.8 mg/dL Normal 8.6-10.3 [facility] Comment on above: Order Comment: evalu ate for Aspiration Performed By: #### 4 6413, 37498, 03262, 31651, 88285 ####[facility] [place] [address], [facility] Chloride [Moles/Vol] 108 mmol/L High 98-107 [facility] Comment on above: Order Comment: evalu ate for Aspiration Performed By: #### 4 6413, 21213, 45220, 35195, 46181 ####[facility] [place] [address], [facility] CO2 [Moles/Vol] 24 mmol/L Normal 21-31 [facility] Comment on above: Order Comment: evalu ate for Aspiration Performed By: #### 4 6413, 56591, 34485, 39822, 03060 ####[facility] [place] [address], [facility] Creatinine [Mass/Vol] 0.86 mg/dL Normal 0.70-1.30 [facility] Comment on above: Order Comment: evalu ate for Aspiration Performed By: #### 4 6413, 17631, 97146, 22662, 69527 ####[facility] [place] [address], [facility] GFR/1.73 sq M.predicted among blacks MDRD (S/P/Bld) [Vol rate/Area] mL/min/{1.73_m2} Normal >60 [facility] Comment on above: Order Comment: evalu ate for Aspiration Performed By: #### 4 6413, 19777, 00723, 36073, 07679 ####[facility] [place] [address], [facility] GFR/1.73 sq M.predicted among non-blacks MDRD (S/P/Bld) [Vol rate/Area] mL/min/{1.73_m2} Normal >60 [facility] Comment on above: Order Comment: evalu ate for Aspiration Performed By: #### 4 6413, 58944, 39376, 81396, 75438 ####[facility] [place] [address], [place] Glucose [Mass/Vol] 142 mg/dL High 70-100 [facility] Comment on above: Order Comment: evalu ate for Aspiration Performed By: #### 4 6413, 27305, 71030, 22316, 63203 ####[facility] [place] [address], [facility] Potassium [Moles/Vol] 3.7 mmol/L Normal 3.5-5.1 [facility] Comment on above: Order Comment: evalu ate for Aspiration Performed By: #### 4 6413, 60926, 20249, 38093, 32447 ####[facility] [place] [address], [facility] Sodium [Moles/Vol] 140 mmol/L Normal 136-145 [facility] Comment on above: Order Comment: evalu ate for Aspiration Performed By: #### 4 6413, 49189, 95699, 96602, 84702 ####[facility] [place] [address], [facility] Urea nitrogen [Mass/Vol] 13 mg/dL Normal 7-25 [facility] Comment on above: Order Comment: evalu ate for Aspiration Performed By: #### 4 6413, 97510, 26476, 88608, 81961 ####[facility] [facility] [address] BNP (B-TYPE NATRIURETIC PEPT RORY)on 09-16-2021 Natriuretic peptide B (Bld) [Mass/Vol] 45 pg/mL Normal 0-100 [facility] Comment on above: Order Comment: evalu ate for Aspiration Result Comment: Give n the appropriate clinical setting a BNP result of >100 pg/mL indicates congestive heart failure. Performed By: #### 8 5123 ####[facility] [facility].[address] CBC COMPLETE BLOOD COUNTon 0 09-16-2021 Erythrocyte distribution width (RBC) [Ratio] 14.2 % Normal 11.5-15.0 [facility] Comment on above: Order Comment: No: D o not add to previous draw Performed By: #### 5 0608 #### [facility] [address] [place] [address], [facility] Hematocrit (Bld) [Volume fraction] 44.0 % Normal 39.0-50.0 [facility] Comment on above: Order Comment: No: D o not add to previous draw Performed By: #### 5 0608 #### [facility] [address] [place] [address], [facility] Hemoglobin (Bld) [Mass/Vol] 15.4 g/dL Normal 13.0-17.0 [facility] Comment on above: Order Comment: No: D o not add to previous draw Performed By: #### 5 0608 #### [facility] [address] [place] [address], [facility] MCH (RBC) [Entitic mass] 29.2 pg Normal 27.0-33.0 [facility] Comment on above: Order Comment: No: D o not add to previous draw Performed By: #### 5 0608 #### [facility] [address] [place] [address], [facility] MCHC (RBC) [Mass/Vol] 35.0 g/dL Normal 32.0-35.0 [facility] Comment on above: Order Comment: No: D o not add to previous draw Performed By: #### 5 0608 #### [facility] [address] [address], [facility] MCV (RBC) [Entitic vol] 83.3 fL Normal 82.0-98.0 [facility] Comment on above: Order Comment: No: D o not add to previous draw Performed By: #### 5 0608 #### [facility] [address] [place] [address], [facility] Nucleated RBC/100 WBC (Bld) [Ratio] 0 % Normal 0-0 [facility] Comment on above: Order Comment: No: D o not add to previous draw Performed By: #### 5 0608 #### [facility] [address] [place] [address], [facility] PLAT CNT 124 10*3/uL Low 150-400 [facility] Comment on above: Order Comment: No: D o not add to previous draw Performed By: #### 5 0608 #### [facility] [address] [place] [address], [facility] RBC (Bld) [#/Vol] 5.28 10*6/uL Normal 4.20-5.70 [facility] Comment on above: Order Comment: No: D o not add to previous draw Performed By: #### 5 0608 #### [facility] [address] [place] [address], [facility] WBC (Bld) [#/Vol] 4.81 10*3/uL Normal 4.00-10.60 [facility] Comment on above: Order Comment: No: D o not add to previous draw Performed By: #### 5 0608 #### [facility] [address] [place] [address], [facility] LIPID PROFILEon 09-16-2021 Cholesterol [Mass/Vol] 193 mg/dL Normal 120-200 [facility] Comment on above: Order Comment: No: D o not add to previous draw Result Comment: CHOL ESTEROL REFERENCE RANGE: 20 YEARS AND OLDER CARDIOVASCULAR RISK Less than 200 mg/dl Low Risk 200 to 239 mg/dl Borderline Risk 240 mg/dl and greater High Risk Performed By: #### 4 6413, 41860, 53613, 27177, 45712 #### [facility] [address] [place] [address], [facility] Cholesterol in HDL [Mass/Vol] 30 mg/dL Normal 23-92 [facility] Comment on above: Order Comment: No: D o not add to previous draw Result Comment: Slig ht variation in normal range could be due to gender and/or age. HDL CHOLESTEROL REFERENCE RANGE: 20 years and older Cardiovascular Risk > or =60 mg/dL Desirable 40 TO 59 mg/dL Low Risk <40 mg/dL High Risk Performed By: #### 4 6413, 38540, 83346, 88591, 98368 #### [facility] [address] [place] [address], [facility] Cholesterol in LDL [Mass/Vol] 121 mg/dL Normal 0-130 [facility] Comment on above: Order Comment: No: D o not add to previous draw Result Comment: LDL IS A CALCULATION LDL IS ONLY VALID IF THE TRIG IS LESS THAN 400. Performed By: #### 4 6413, 24568, 84823, 21626, 49109 #### [facility] [address] [place] [address], [facility] Cholesterol.total/Ch olesterol in HDL [Mass ratio] 6.4 {ratio} High .0-4.5 [facility] Comment on above: Order Comment: No: D o not add to previous draw Performed By: #### 4 6413, 84575, 25776, 36879, 48083 #### [facility] [address] [place] [address], [facility] NON-HDL CHOLESTEROL 163 mg/dL Normal [facility] Comment on above: Order Comment: No: D o not add to previous draw Performed By: #### 4 6413, 98977, 41813, 69448, 02430 #### [facility] [address] [place] [address], [facility] Triglyceride [Mass/Vol] 208 mg/dL High 40-149 [facility] Comment on above: Order Comment: No: D o not add to previous draw Result Comment: TRIG LYCERIDE REFERENCE RANGE: 20 YEARS AND OLDER CARDIOVASCULAR RISK LESS THAN 150 mg/dl LOW RISK 150 TO 199 mg/dl BORDERLINE RISK 200 mg/dl AND GREATER HIGH RISK Performed By: #### 4 6413, 13662, 90946, 66364, 18545 #### [facility] [address] [place] [address], [place] VLDL CHOL 42 mg/dL High 0-40 [facility] Comment on above: Order Comment: No: D o not add to previous draw Performed By: #### 4 6413, 22859, 11042, 80220, 14246 #### [facility] [address] [place] [address], [facility] MAGNESIUM BLOODon 09-16-2021 Magnesium [Mass/Vol] 2.2 mg/dL Normal 1.9-2.7 [facility] Comment on above: Order Comment: No: D o not add to previous draw Performed By: #### 4 6413, 83361, 50583, 39061, 78081 #### [facility] [address] [place] [address], [facility] Magnesium [Mass/Vol] 2.3 mg/dL Normal 1.9-2.7 [facility] Comment on above: Order Comment: if no t done in ED No: Do not add to previous draw Performed By: #### 3 5200, 20091 #### [facility] [address] [place] [address], [facility] PHOSPHORUS BLOODon Phosphate [Mass/Vol] 3.0 mg/dL Normal 2.5-5.0 [facility] Comment on above: Order Comment: No: D o not add to previous draw Performed By: #### 4 6413, 70183, 45611, 24315, 14454 #### [facility] [address] [facility] POC SARS COV2 ANTIGEN NEGATI VEon 09-16-2021 POC SARS COV2 ANTIGEN NEG Negative Normal NEGATIVE [facility] Comment on above: Result Comment: Nega tive [...] antigen from SARS-CoV-2 in direct nasopharyngeal swab ([employer]) specimens from individuals who are suspected of [...] Accreditation. Performed By: #### 3 2044 #### [facility] [address] [facility] [place], [place] [address] [place] [address] PROTHROMBIN TIMEon 2 INR Coag (PPP) [Relative time] 1.02 {INR} Normal 0.91-1.16 [facility] Comment on above: Order Comment: evalu ate [...] CHEST 1995;108:[id number]. Performed By: #### 5 7307, 30571 ####[facility] [place] [address], [facility] PT Coag (PPP) [Time] 13.4 s Normal 12.3-14.8 [facility] Comment on above: Order Comment: evalu ate for Aspiration Result Comment: ALL RESULTS MUST BE INTERPRETED WITH RESPECT TO BLOOD DRAWING ARTIFACT OR DILUTION ERROR OF ANTICOAGULANT AT THE TIME OF SAMPLING. Performed By: #### 5 7307, 78305 ####[facility] [place] [address], [facility] TROPONIN-Ion 09-16-2021 Troponin I.cardiac [Mass/Vol] 0.00 ng/mL Normal 0.00-0.04 [facility] Comment on above: Order Comment: No: D o not add to previous draw Result Comment: REFE RENCE RANGES: 0.00 - 0.04 ng/ml NORMAL 0.05 - 0.50 ng/ml INDETERMINATE > 0.50 ng/ml CONSISTENT WITH AN M.I. Performed By: #### 4 6413, 92603, 15259, 34841, 26683 #### [facility] [address] [place] [address], [facility] Troponin I.cardiac [Mass/Vol] 0.00 ng/mL Normal 0.00-0.04 [facility] Comment on above: Order Comment: No: D o not add to previous draw Result Comment: REFE RENCE RANGES: 0.00 - 0.04 ng/ml NORMAL 0.05 - 0.50 ng/ml INDETERMINATE > 0.50 ng/ml CONSISTENT WITH AN M.I. Performed By: #### 3 5200, 39341 #### [facility] [address] [place] [address], [facility] BASIC METABOLIC PANELon 09-01 Calcium [Mass/Vol] 9.3 mg/dL Normal 8.6-10.3 [facility] Comment on above: Performed By: #### 0 0071, 59135 ####[facility] [place] [address], [facility] Chloride [Moles/Vol] 106 mmol/L Normal 98-107 [facility] Comment on above: Performed By: #### 0 70, 79526 ####[facility] [place] [address], [facility] CO2 [Moles/Vol] 24 mmol/L Normal 21-31 [facility] Comment on above: Performed By: #### 0 70, 02007 ####[facility] [id number], [facility] Creatinine [Mass/Vol] 0.96 mg/dL Normal 0.70-1.30 [facility] Comment on above: Performed By: #### 0 70, 21449 ####[facility] [id number], [facility] GFR/1.73 sq M.predicted among blacks MDRD (S/P/Bld) [Vol rate/Area] mL/min/{1.73_m2} Normal >60 [facility] Comment on above: Performed By: #### 0 70, 57714 ####[facility] [place] [address], [facility] GFR/1.73 sq M.predicted among non-blacks MDRD (S/P/Bld) [Vol rate/Area] mL/min/{1.73_m2} Normal >60 [facility] Comment on above: Performed By: #### 0 70, 17409 ####[facility] [address], [facility] Glucose [Mass/Vol] 143 mg/dL High 70-100 [facility] Comment on above: Performed By: #### 0 70, 37879 ####[facility] [id number], [place] Potassium [Moles/Vol] 4.3 mmol/L Normal 3.5-5.1 [facility] Comment on above: Performed By: #### 0 70, 65349 ####[facility] [place] [address], [facility] Sodium [Moles/Vol] 138 mmol/L Normal 136-145 [facility] Comment on above: Performed By: #### 0 0071, 24115 ####[facility] [place] [address], [facility] Urea nitrogen [Mass/Vol] 13 mg/dL Normal 7-25 [facility] Comment on above: Performed By: #### 0 70, 38307 ####[facility] [place] [address], [facility] CBC W/DIFFon 09-15-2021 ABS IMM GRANS 0.0 10*3/uL Normal 0.0-0.[address] [facility] Comment on above: Performed By: #### 5 0103 ####[facility] [facility] ABS NEUTROPHILS 3.8 10*3/uL Normal 1.6-7.6 The [facility] Comment on above: Performed By: #### 5 0103 ####[facility] [place] [address], [facility] Basophils (Bld) [#/Vol] 0.1 10*3/uL Normal 0.0-0.2 [facility] Comment on above: Performed By: #### 5 0103 ####[facility] [place] [address], [facility] Basophils/100 WBC (Bld) 0.8 % Normal 0.0-1.0 [facility] Comment on above: Performed By: #### 5 3 ####[facility] [place] [address], [facility] Eosinophils (Bld) [#/Vol] 0.1 10*3/uL Normal 0.0-0.5 [facility] Comment on above: Performed By: #### 5 0103 ####[facility] [place] [address], [facility] Eosinophils/100 WBC (Bld) 1.5 % Normal 0.0-6.0 [facility] Comment on above: Performed By: #### 5 0103 ####[facility] Erythrocyte distribution width (RBC) [Ratio] 14.0 % Normal 11.5-15.0 [facility] Comment on above: Performed By: #### 5 3 ####[facility] [facility] Hematocrit (Bld) [Volume fraction] 45.1 % Normal 39.0-50.0 [facility] Comment on above: Performed By: #### 3 ####[facility] [facility] Hemoglobin (Bld) [Mass/Vol] 15.4 g/dL Normal 13.0-17.0 [facility] Comment on above: Performed By: #### 5 3 ####[facility] [place] [address], [facility] IMMATURE GRANS 0.5 % Normal 0.0-1.0 [facility] Comment on above: Performed By: #### 5 3 ####[facility] [place] [address], [facility] Lymphocytes (Bld) [#/Vol] 1.5 10*3/uL Normal 1.2-4.0 [facility] Comment on above: Performed By: #### 5 3 ####[facility] [place] [address], [facility] Lymphocytes/100 WBC (Bld) 24.6 % Normal 20.0-45.0 [facility] Comment on above: Performed By: #### 5 0103 ####[facility] [facility] MCH (RBC) [Entitic mass] 29.0 pg Normal 27.0-33.0 [facility] Comment on above: Performed By: #### 5 3 ####[facility] [facility].[address] MCHC (RBC) [Mass/Vol] 34.1 g/dL Normal 32.0-35.0 [facility] Comment on above: Performed By: #### 5 3 ####[facility] MCV (RBC) [Entitic vol] 84.9 fL Normal 82.0-98.0 [facility] Comment on above: Performed By: #### 5 3 ####[facility] Monocytes (Bld) [#/Vol] 0.6 10*3/uL Normal 0.1-1.0 [facility] Comment on above: Performed By: #### 5 3 ####[facility] MONOS 9.2 % Normal 5.0-12.0 [facility] Comment on above: Performed By: #### 5 3 ####[facility] Neutrophils/100 WBC (Bld) 63.4 % Normal 40.0-72.0 [facility] Comment on above: Performed By: #### 5 3 ####[facility] [place] [address], [facility] Nucleated RBC/100 WBC (Bld) [Ratio] 0 % Normal 0-0 [facility] Comment on above: Performed By: #### 5 0103 ####[facility] PLAT CNT 155 10*3/uL Normal 150-400 [facility] Comment on above: Performed By: #### 5 0103 ####[facility] RBC (Bld) [#/Vol] 5.31 10*6/uL Normal 4.20-5.70 [facility] Comment on above: Performed By: #### 5 0103 ####[facility] WBC (Bld) [#/Vol] 6.06 10*3/uL Normal 4.00-10.60 [facility] Comment on above: Performed By: #### 5 0103 ####[facility] PORTABLE CHEST 1 VIEWon 09-01 PORTABLE CHEST 1 VIEW [facility] Department of Radiology [address] [place] [address] Patient Name: SALOMÓN JUSTICE : 1960 Sex: M Age: Race: White Pt. Location: [facility] Patient Status: E Ordered Date: 09/15/2021 [...] clinically. Electronically signed: Alex Quintana. Transcribed by: [email or web address], User Resident: ALEX QUINTANA Electronically Signed by: ALEX QUINTANA @ 09/15/2021 01:45 PM I personally read this/these film(s) with this resident Normal [facility] Comment on above: Order Comment: evalu ate for Aspiration TROPONIN-Ion 09-15-2021 Troponin I.cardiac [Mass/Vol] 0.00 ng/mL Normal 0.00-0.04 [facility] Comment on above: Result Comment: REFE RENCE RANGES: 0.00 - 0.04 ng/ml NORMAL 0.05 - 0.50 ng/ml INDETERMINATE > 0.50 ng/ml CONSISTENT WITH AN M.I. Performed By: #### 0 0071, 25883 ####[facility] [place] [address], [facility] Encounters Encounter Date Encounter Type Care Provider Facility Start: 09-14-2023 End: 09-14-2023 ambulatory DEBORAH CRANE [facility] Start: 04-20-2023 End: 04-20-2023 ambulatory HILLARY ARRIAGA [facility] Start: 10-22-2022 End: 10-23-[address] HILLARY ARRIAGA Facility: Start: 10-13-2022 End: 10-13-2022 ambulatory HILLARY ARRIAGA [facility] Start: 07-07-2022 End: 07-08-[address] MITESH VÁSQUEZ Facility: Start: 05-24-2022 End: 05-25-2022 ambulatory Horace MANDEL Facility:[facility] Start: 09-15-2021 End: 09-17-2021 ambulatory REFERRED SELF Facility:[facility] Procedures Date Procedure Procedure Detail Performing Clinician Start: 07-07-[address] HILLARY MCCARTNEY Comment on above: Performed By: #### P SAD #### [facility] [address] [place] [address] [address] Anderson Powers Payers Date Payer Category Payer Unknown [id number] 1960 Unknown [id number] 1960 Unknown [id number] 1959 Medicaid [id number] 1959 Private Health Insurance [id number] Progress note 09-14-2023 Note Date & Type Note Facility 09-14-2023 Note Script for vascepa a nd leqvio sent to pharmacy- pt is adamant he cannot give myself a shot. Repeat Lipid level in 3 months [facility] Progress note 09-14-2023 Note Date & Type Note Facility 09-14-2023 Note Hypertension is stab le and well controlled 120/82 continue diltiazem, imdur, metoprolol [facility] Progress note 09-14-2023 Note Date & Type Note Facility 09-14-2023 Note Coronary artery dise ase is stable No concerning symptoms Continue GDMT- aSa, plavix, colchicine, imdur, and metoprolol continue risk factor modifications- heart healthy diet, regular exercise as tolerated and continue all medications. [facility] Progress note 09-14-2023 Note Date & Type [...] All other systems reviewed and are negative. [facility] Progress note 09-14-2023 Note Date & Type [...] Liver function n (more content not included)... [facility] Progress note 04-20-2023 Note Date & Type Note Facility 04-20-2023 Note [facility] Note Chief Complaint: Patient [...] also has hyp (more content not included)... [facility] Progress note 10-13-2022 Note Date & Type Note Facility 10-13-[address] [facility] Note Chief Complaint: Follow-up HPI: [...] which is a (more content not included)... [facility] Discharge summary note 09-17-2021 Note Date & Type Note Facility 09-17-2021 Note MR#: [id number] [facility] Pt. Name: Salomón Justice Admitted: 09/15/2021 Discharged: 09/17/2021 Date of : 1960 Physician: Jaic Benites MD DISCHARGE SUMMARY PRIMARY CARE PHYSICIAN: [...] Benites MD Date Trans: 09/17/2021 09:46 A/raphael [id number] cc: Mitesh Vásquez D.O. [address] [place] [address] [facility] [address] [facility] Summary Purpose Family History No Family History [...] and content) DATE CREATED AUTHOR 03/31/2022 [facility] DATE CREATED AUTHOR AUTHOR'S ORGANIZ ATION 08/24/2022 [facility] DATE CREATED AUTHOR AUTHOR'S ORGANIZ ATION 10/25/2022 [facility] DATE CREATED AUTHOR AUTHOR'S ORGANIZ ATION 10/13/2023 [facility] FOR RECORDS PERTAINING TO PATIENTS WHO ARE [...] BE BASED ON THE PRIMARY CLINICAL RECORDS. [employer] provides no warranty or guarantee of the accuracy or completeness of information in this document.
[2023-11-16 11:42] LABS: Basophils Absolute Auto 0.1 10^3/uL (0.0-0.1); Basophils Percent Auto 0.8 % (0.2-2.0); Eosinophils Absolute Auto 0.1 10^3/uL (0.0-0.7); Eosinophils Percent Auto 1.7 % (0.9-7.0); Hematocrit 46.9 % (42.0-54.0); Hemoglobin 16.1 g/dL (14.0-18.0); Immature Granulocytes Abs Auto 0.03 10^3/uL (0.00-0.03); Immature Granulocytes Pct Auto 0.5 % (0.0-0.5); Lymphocytes Absolute Auto 1.8 10^3/uL (1.2-3.8); Lymphocytes Percent Auto 26.7 % (20.5-60.0); Mean Corpuscular HGB Conc 34.3 g/dL (29.9-35.2); Mean Corpuscular Hemoglobin 29.3 pg (25.9-34.0); Mean Corpuscular Volume 85.3 fL (80.0-94.0); Mean Platelet Volume 10.3 fL (9.5-13.5); Monocytes Absolute Auto 0.5 10^3/uL (0.3-0.8); Monocytes Percent Auto 8.2 % (1.7-12.0); Neutrophils Absolute Auto 4.1 10^3/uL (1.4-6.5); Neutrophils Percent Auto 62.1 % (43.0-75.0); Platelet Count 153 10^3/uL (150-450); Red Cell Distribution Width 13.4 % (11.0-15.0); White Blood Count 6.6 10^3/uL (4.0-11.0)
[2023-11-16 13:03] LABS: Anion Gap 13.3; BUN Creatinine Ratio 25.8; Calcium 9.5 mg/dL (8.5-10.1); Carbon Dioxide 27.6 mmol/L (21.0-32.0); Chloride 102 mmol/L (98-107); Estimated GFR (African America >60 (>=60); Estimated GFR (Non-African Ame >60 (>=60); Glucose 303 mg/dL (74-106); Potassium 3.9 mmol/L (3.5-5.1); Sodium 139 mmol/L (136-145)
== END 2023-11-16 11:11 | disposition home or self-care (01) ==
LOC: LAB 11:14
PROVIDERS: Visit Provider Internal Medicine Interventional Cardiology
DX: Z01.818 Encounter for other preprocedural examination (principal)
CPT/HCPCS: 36415; 80048; 85025

== ENCOUNTER 2023-12-14 07:31 | Outpatient (RCR) | payer MEDICARE, MEDICAID, SELFPAY ==
[2023-12-14 10:54] VITALS: BP 122/77; PULSE 63; TEMP 35.7; O2SAT 94
[2023-12-14] MEDS: INCLISIRAN SODIUM 284 MG/1.5 ML SYRINGE SQ (11:00)
--- NOTE | 2023-12-14 11:34 | PC.NURSE ---
1054: Pt. to [facility] amb. for injection. Questions addressed regarding side effects of med. Handout provided. 1100: Medicated with Leqvio to right upper arm as directed. No bleeding to site. Pt. denies pain. 1105: Encouraged pt. to remain in dept. for brief observation, but states he has appt. with Dr. Hicks. Pt. d/c'd to amb. to appt.
== END 2023-12-30 23:59 | disposition home or self-care (01) ==
LOC: INF 07:31
PROVIDERS: Visit Provider Nurse Practitioner
DX: I25.10 Atherosclerotic heart disease of native coronary artery without angina pectoris (principal); E78.5 Hyperlipidemia, unspecified
CPT/HCPCS: 96372; J1306

== ENCOUNTER 2024-01-11 07:05 | Outpatient (RCR) | payer MEDICARE, MEDICAID, SELFPAY ==
--- NOTE | 2023-12-12 14:14 | CR1_ITS ---
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
--- NOTE | 2023-12-14 10:58 | CR1_ITS ---
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
--- NOTE | 2024-01-02 11:10 | PC.NURSE ---
Called patient to outreach since he has not been seen in 2 weeks. Patient did not answer, but a voicemail was left to call back when able about returning to rehab.
--- NOTE | 2024-01-11 | CR1_ITS ---
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
--- NOTE | 2024-01-31 06:54 | PC.NURSE ---
Outreach letter due to lack of attendance and copy of attendance policy mailed to patient on this date. Patient has been outreached by phone prior to this letter to help facilitate their attendance in cardiac rehab.
== END 2024-02-21 14:01 | disposition home or self-care (01) ==
LOC: CR 07:05
PROVIDERS: Visit Provider Internal Medicine Interventional Cardiology
DX: Z98.61 Coronary angioplasty status (principal); I20.89 Other forms of angina pectoris
CPT/HCPCS: 93798

== ENCOUNTER 2024-03-30 07:37 | Outpatient (RCR) | payer MEDICARE, MEDICAID, SELFPAY ==
[2024-03-30 12:56] VITALS: BP 118/83; PULSE 58; TEMP 36.6; O2SAT 95
[2024-03-30] MEDS: INCLISIRAN SODIUM 284 MG/1.5 ML SYRINGE SQ (13:02)
== END 2024-03-31 23:59 | disposition home or self-care (01) ==
LOC: INF 07:37
PROVIDERS: Visit Provider Nurse Practitioner
DX: I25.10 Atherosclerotic heart disease of native coronary artery without angina pectoris (principal); E78.5 Hyperlipidemia, unspecified
CPT/HCPCS: 96372; J1306

== ENCOUNTER 2024-07-27 09:21 | Outpatient (OUT) | payer MEDICARE, MEDICAID, SELFPAY ==
[2024-07-27 10:17] LABS: Alanine Aminotransferase 42 U/L (16-63); Albumin Globulin Ratio 1.4; Albumin Level 3.7 g/dL (3.4-5.0); Alkaline Phosphatase 93 U/L (46-116); Aspartate Amino Transferase 21 U/L (15-37); Bilirubin Direct 0.1 mg/dL (0.0-0.2); Bilirubin Total 0.5 mg/dL (0.2-1.0); Chol HDL Ratio 3.4; Cholesterol 147 mg/dL (<=200); Globulin 2.7 g/dL; HDL Cholesterol 43 mg/dL (40-60); Total Protein 6.4 g/dL (6.4-8.2); Triglycerides 211 mg/dL (<=150); VLDL CHOLESTEROL 42.2 mg/dL
== END 2024-07-27 09:22 | disposition home or self-care (01) ==
LOC: LAB 09:24
PROVIDERS: Visit Provider Internal Medicine Interventional Cardiology
DX: I25.10 Atherosclerotic heart disease of native coronary artery without angina pectoris (principal)
CPT/HCPCS: 36415; 80061; 80076

== ENCOUNTER 2024-09-27 07:38 | Outpatient (RCR) | payer MEDICARE, MEDICAID, SELFPAY ==
[2024-09-27 10:16] VITALS: BP 115/70; PULSE 51; TEMP 36; O2SAT 96
[2024-09-27] MEDS: INCLISIRAN SODIUM 284 MG/1.5 ML SYRINGE SQ (10:21)
== END 2024-09-28 07:55 | disposition home or self-care (01) ==
LOC: INF 07:38
PROVIDERS: Visit Provider Nurse Practitioner
DX: I25.10 Atherosclerotic heart disease of native coronary artery without angina pectoris (principal); E78.5 Hyperlipidemia, unspecified
CPT/HCPCS: 96372; J1306

== ENCOUNTER 2025-02-07 08:09 | Outpatient (OUT) | payer MEDICARE, MEDICAID, SELFPAY ==
[2025-02-07 08:52] LABS: Alanine Aminotransferase 34 U/L (16-63); Albumin Globulin Ratio 1.2; Albumin Level 3.5 g/dL (3.4-5.0); Alkaline Phosphatase 124 U/L (46-116); Aspartate Amino Transferase 13 U/L (15-37); Cholesterol 144 mg/dL (<=200); Globulin 2.9 g/dL; HDL Cholesterol 36 mg/dL (40-60); Total Protein 6.4 g/dL (6.4-8.2); Triglycerides 261 mg/dL (<=150); VLDL CHOLESTEROL 52.2 mg/dL
== END 2025-02-07 08:10 | disposition home or self-care (01) ==
LOC: LAB 08:10
PROVIDERS: Visit Provider Internal Medicine Interventional Cardiology
DX: E78.5 Hyperlipidemia, unspecified (principal)
CPT/HCPCS: 36415; 80061; 80076

== ENCOUNTER 2025-03-27 10:38 | Outpatient (OUT) | payer MEDICARE, MEDICAID, SELFPAY ==
--- OUTSIDE RECORDS SUMMARY | 2025-03-27 10:58 | XMS_ITS | CCD ---
Author Organization [facility] Care Team Providers Care Credit Control Clerk Name Role Phone SELF, REFERRED Referring Unavailable HOUSE, MITESH Primary Care Unavailable KIRK, JACI Admitting Unavailable KIRK, JACI Attending Unavailable TEQUILA, Horace Attending Unavailable ELTAHAWY, DR THORNTON Consulting Unavailable HOUSE, DR VASQUES Primary Care Unavailable ELTAHAWY, DR THORNTON Attending Unavailable ELTAHAWY, DR THORNTON Admitting Unavailable ZIEBER, DR CHRISTA Macias Consulting Unavailable HOUSE, DR VASQUES Admitting Unavailable HOUSE, DR VASQUES Primary Care Unavailable HOUSE, DR VASQUES Consulting Unavailable HOUSE, DR VASQUES Attending Unavailable ELTAHAWY, HILLARY Attending Unavailable ELTAHAWY, HILLARY Attending Unavailable ELTAHAWY, HILLARY Attending Unavailable Allergies Allergy Classification Reported Allergen(s) Allergy Type Date of Onset Reaction(s) Facility (1 source) black walnut pollen extract Drug Allergy 06-16-2016 [facility] Repository (1 source) ranolazine Drug Allergy 06-11-2009 [facility] Repository (1 source) RENAX Drug allergy (disorder) 12-04-2012 [facility] Repository (1 source) ezetimibe; Translations: [EZETIMIBE] Drug Allergy 02-07-2025 [facility] Repository (1 source) ranolazine; Translations: [RANOLAZINE] Drug Allergy 07-19-2014 [facility] Repository Problems Active Problems Problem Classification Problem Date Documented Date Episodic/Chronic Coronary atherosclerosis and other heart disease (4 sources) Atherosclerotic heart disease of [place] coronary artery with other forms of angina pectoris; Translations: [Atherosclerotic heart disease of [place] coronary artery without angina pectoris] Onset: 12-02-2023 Chronic Diabetes mellitus without complication (4 sources) Type 2 diabetes mellitus without complications; Translations: [TYPE 2 DM WITHOUT COMPLICATIONS] Onset: 07-07-2022 Chronic Disorders of lipid metabolism (4 sources) Other hyperlipidemia; Translations: [OTHER HYPERLIPIDEMIA] Onset: 10-22-2022 Chronic Essential hypertension (1 source) Essential (primary) hypertension; Translations: [ESSENTIAL PRIMARY HYPERTENSION] Onset: 10-24-2022 Chronic Residual codes; unclassified (2 sources) Edema, unspecified; Translations: [Edema, unspecified] Onset: 02-07-2025 Episodic Spondylosis; intervertebral disc disorders; other back problems (1 source) Cervicalgia; Translations: [CERVICALGIA] Onset: 10-24-2022 Episodic Past or Other Problems Problem Classification Problem Date Documented Da te Episodic/Chronic Genitourinary symptoms and ill-defined conditions (1 source) Hesitancy of micturition; Translations: [HESITANCY OF MICTURITION] Onset: 07-10-2022 Episodic Results Test Name Value Interpretation Reference Range Facility Office Visiton 02-07-2025 Follow-up visit [id number] Salomón Justice 1960 M Date Provider Department Center 02/07/2025 [facility] No family history on file Level of Service:98750 ID OFFICE/OUTPATIENT ESTABLISHED MOD MDM 30 MIN Normal [facility] Office Visiton 08-23-2024 Follow-up visit [id number] Salomón Justice 1960 M Date Provider Department Center 08/23/2024 [facility] No family history on file Level of Service:65070 ID OFFICE/OUTPATIENT ESTABLISHED LOW MDM 20 MIN Normal [facility] Office Visiton 06-13-2024 Follow-up visit [id number] Salomón Justice 1960 M Date Provider Department Center 06/13/2024 [facility] No family history on file Level of Service:33127 ID OFFICE/OUTPATIENT ESTABLISHED MOD MDM 30 MIN Normal [facility] 36on 03-28-2024 36 Patient didn't show for his 3 mo Leqvio injection at [facility] on 03/09. I left him a VM asking him to call [facility] to get rescheduled. He called me right back and I was able to transfer him to scheduling. Normal [facility] LIPID PROFILEon 10-22-2022 CHOL-HDL RATIO NORM SEE BELOW Normal [facility] Comment on above: Result Comment: 3.3 - 4.4 LOW RISK 4.4 - 7.1 AVERAGE RISK 7.1 - 11.0 MODERATE RISK >11.0 HIGH RISK Performed By: #### L IVER, LIPID #### [facility] [address] [address] [address] Anderson Powers Cholesterol [Mass/Vol] 191 mg/dL Normal <=200 [facility] Comment on above: Performed By: #### L IVER, LIPID #### [facility] [address] [address] [address] Anderson Powers Cholesterol in HDL [Mass/Vol] 34 mg/dL Critically low 40-60 [facility] Comment on above: Performed By: #### L IVER, LIPID #### [facility] [address] [place] [address] Dr. Anderson Powers Cholesterol in LDL [Mass/Vol] 107.8 mg/dL Normal [facility] Comment on above: Performed By: #### L IVER, LIPID #### [facility] [address] [place] [address] Dr. Anderson Powers Cholesterol.total/Ch olesterol in HDL [Mass ratio] 5.6 {ratio} Normal [facility] Comment on above: Performed By: #### L IVER, LIPID #### [facility] [address] [place] [address] Dr. Anderson Powers HDL NORMAL > or = 60 mg/dl - LOW CARDIOVASCULAR RISK <40 mg/dl - HIGH CARDIOVASCULAR RISK Normal [facility] Comment on above: Performed By: #### L IVER, LIPID #### [facility] [address] [place] [address] Dr. Anderson Powers LDL CALC NORMAL SEE BELOW Normal [facility] Comment on above: Result Comment: <100 mg/dl OPTIMAL 100 - 129 mg/dl NEAR OR ABOVE OPTIMAL 130 - 159 mg/dl BORDERLINE HIGH 160 - 189 mg/dl HIGH >190 mg/dl VERY HIGH Performed By: #### L IVER, LIPID #### [facility] [address] [place] [address] Dr. Anderson Powers Triglyceride [Mass/Vol] 246 mg/dL Critically high <=150 [facility] Comment on above: Performed By: #### L IVER, LIPID #### [facility] [address] [address] [address] Anderson Powers VLDL CALC 49.2 mg/dL Normal [facility] Comment on above: Performed By: #### L IVER, LIPID #### [facility] [address] [place] [address] Dr. Anderson Powers LIVER PROFILEon 10-22-2022 Albumin [Mass/Vol] 4.0 g/dL Normal 3.4-5.0 [facility] Comment on above: Performed By: #### L IVER, LIPID #### [facility] [address] [place] [address] Dr. Anderson Powers Albumin/Globulin [Mass ratio] 1.5 {ratio} Normal [facility] Comment on above: Performed By: #### L IVER, LIPID #### [facility] [address] [place] [address] Dr. Anderson Powers ALP [Catalytic activity/Vol] 124 U/L Critically high 46-116 [facility] Comment on above: Performed By: #### L IVER, LIPID #### [facility] [address] [place] [address] Dr. Anderson Powers ALT [Catalytic activity/Vol] 55 U/L Normal 16-63 [facility] Comment on above: Performed By: #### L IVER, LIPID #### [facility] [address] [place] [address] Dr. Anderson Powers AST [Catalytic activity/Vol] 21 U/L Normal 15-37 [facility] Comment on above: Performed By: #### L IVER, LIPID #### [facility] [address] [place] [address] Dr. Anderson Powers BILI, CONJUGATED 0.1 mg/dL Normal 0.0-0.2 [facility] Comment on above: Performed By: #### L IVER, LIPID #### [facility] [address] [address] [address] Anderson Powers Bilirubin [Mass/Vol] 0.5 mg/dL Normal 0.2-1.0 [facility] Comment on above: Performed By: #### L IVER, LIPID #### [facility] [address] [place] [address] Dr. Anderson Powers Globulin (S) [Mass/Vol] 2.7 g/dL Normal [facility] Comment on above: Performed By: #### L IVER, LIPID #### [facility] [address] [address] [address] Anderson Powers Protein [Mass/Vol] 6.7 g/dL Normal 6.4-8.2 [facility] Comment on above: Performed By: #### L IVER, LIPID #### [facility] [address] [place] [address] Dr. Anderson Powers XR CSPINE MIN 4 [...] by: CHRISTA BARRAGAN Date: 2022-10-22 11:08 Normal [facility] Registrationon 08-18-2022 Registration [id number] 1.00CD:127 Normal [facility] CBC AUTO DIFFon 07-07-2022 BASO # 0.0 103/ul Normal 0.0-0.1 [facility] Comment on above: Performed By: #### C BC #### [facility] [address] [place] [address] Dr. Anderson Powers Basophils/100 WBC (Bld) 0.7 % Normal 0.2-2.0 [facility] Comment on above: Performed By: #### C BC #### [facility] [address] [place] [address] Dr. Anderson Powers EO # 0.1 103/ul Normal 0.0-0.7 [facility] Comment on above: Performed By: #### C BC #### [facility] [address] [place] [address] Dr. Anderson Powers Eosinophils/100 WBC (Bld) 1.6 % Normal 0.9-7.0 [facility] Comment on above: Performed By: #### C BC #### [facility] [address] [place] [address] Dr. Anderson Powers Erythrocyte distribution width (RBC) [Ratio] 13.2 % Normal 11.0-15.0 [facility] Comment on above: Performed By: #### C BC #### [facility] [address] [place] [address] Dr. Anderson Powers Hematocrit (Bld) [Volume fraction] 47.3 % Normal 42.0-54.0 [facility] Comment on above: Performed By: #### C BC #### [facility] [address] [place] [address] Dr. Anderson Powers Hemoglobin (Bld) [Mass/Vol] 16.2 g/dL Normal 14.0-18.0 [facility] Comment on above: Performed By: #### C BC #### [facility] [address] [place] [address] Dr. Anderson Powers IG # 0.03 10e3/ul Normal 0.00-0.03 [facility] Comment on above: Performed By: #### C BC #### [facility] [address] [place] [address] Dr. Anderson Powers IG % 0.5 % Normal 0.0-0.5 [facility] Comment on above: Performed By: #### C BC #### [facility] [address] [place] [address] Dr. Anderson Powers LYMPH # 1.4 103/ul Normal 1.2-3.8 [facility] Comment on above: Performed By: #### C BC #### [facility] [address] [place] [address] Dr. Anderson Powers Lymphocytes/100 WBC (Bld) 24.1 % Normal 20.5-60.0 [facility] Comment on above: Performed By: #### C BC #### [facility] [address] [place] [address] Dr. Anderson Powers MANUAL DIFF REQ NO Normal [facility] Comment on above: Performed By: #### C BC #### [facility] [address] [place] [address] Dr. Anderson Powers MCH (RBC) [Entitic mass] 29.4 pg Normal 25.9-34.0 [facility] Comment on above: Performed By: #### C BC #### [facility] [address] [place] [address] Dr. Anderson Powers MCHC (RBC) [Mass/Vol] 34.2 g/dL Normal 29.9-35.2 [facility] Comment on above: Performed By: #### C BC #### [facility] [address] [place] [address] Dr. Anderson Powers MCV (RBC) [Entitic vol] 85.8 fL Normal 80.0-94.0 [facility] Comment on above: Performed By: #### C BC #### [facility] [address] [place] [address] Dr. Anderson Powers MONO # 0.5 103/ul Normal 0.3-0.8 [facility] Comment on above: Performed By: #### C BC #### [facility] [address] [place] [address] Dr. Anderson Powers Monocytes/100 WBC (Bld) 8.9 % Normal 1.7-12.0 [facility] Comment on above: Performed By: #### C BC #### [facility] [address] [place] [address] Dr. Anderson Powers NEUT # 3.6 103/ul Normal 1.4-6.5 [facility] Comment on above: Performed By: #### C BC #### [facility] [address] [address] [address] Anderson Powers Neutrophils/100 WBC (Bld) 64.2 % Normal 43.0-75.0 [facility] Comment on above: Performed By: #### C BC #### [facility] [address] [address] [address] Anderson Powers Platelet mean volume (Bld) [Entitic vol] 10.6 fL Normal 9.5-13.5 [facility] Comment on above: Performed By: #### C BC #### [facility] [address] [address] [address] Anderson Powers PLT 148 103/ul Critically low 150-450 [facility] Comment on above: Performed By: #### C BC #### [facility] [address] [place] [address] Dr. Anderson Powers RBC 5.51 106/ul Normal 4.70-6.10 [facility] Comment on above: Performed By: #### C BC #### [facility] [address] [address] [address] Anderson Powers WBC 5.6 103/ul Normal 4.0-11.0 [facility] Comment on above: Performed By: #### C BC #### [facility] [address] [address] [address] Anderson Powers GLYCOHEMOGLOBIN A1Con 2021 ADA RECOMMENDATION SEE BELOW Normal [facility] Comment on above: Result Comment: ADA RECOMMENDED LIMIT 4.0 - 6.0 ADA THERAPEUTIC TARGET < 7.0 ACTION SUGGESTED > 7.0 Performed By: #### A 1C #### [facility] [address] [address] [address] Anderson Powers Glucose [Mass/Vol] 194 mg/dL Normal [facility] Comment on above: Performed By: #### A 1C #### [facility] [address] [place] [address] Dr. Anderson Powers HbA1c (Bld) [Mass fraction] 8.4 % Critically high 4.5-6.2 [facility] Comment on above: Performed By: #### A 1C #### [facility] [address] [place] [address] Dr. Anderson Powers MICROALBUMIN, RAND URon 12-0 mALB <1.3 Normal <=30.0 [facility] Comment on above: Performed By: #### M ALBR #### [facility] [address] [place] [address] Dr. Anderson Powers PROF 14(COMP METB)on 022 Albumin [Mass/Vol] 3.9 g/dL Normal 3.4-5.0 [facility] Comment on above: Performed By: #### C MP #### [facility] [address] [place] [address] Dr. Anderson Powers Albumin/Globulin [Mass ratio] 1.4 {ratio} Normal [facility] Comment on above: Performed By: #### C MP #### [facility] [address] [place] [address] Dr. Anderson Powers ALP [Catalytic activity/Vol] 108 U/L Normal 46-116 [facility] Comment on above: Performed By: #### C MP #### [facility] [address] [place] [address] Dr. Anderson Powers ALT [Catalytic activity/Vol] 49 U/L Normal 16-63 [facility] Comment on above: Performed By: #### C MP #### [facility] [address] [place] [address] Dr. Anderson Powers Anion gap [Moles/Vol] 10.6 mmol/L Normal [facility] Comment on above: Performed By: #### C MP #### [facility] [address] [place] [address] Dr. Anderson Powers AST [Catalytic activity/Vol] 18 U/L Normal 15-37 [facility] Comment on above: Performed By: #### C MP #### [facility] [address] [place] [address] Dr. Anderson Powers Bilirubin [Mass/Vol] 0.4 mg/dL Normal 0.2-1.0 [facility] Comment on above: Performed By: #### C MP #### [facility] [address] [address] [address] Anderson Powers Calcium [Mass/Vol] 9.0 mg/dL Normal 8.5-10.1 [facility] Comment on above: Performed By: #### C MP #### [facility] [address] [address] [address] Anderson Powers Chloride [Moles/Vol] 102 mmol/L Normal 98-107 [facility] Comment on above: Performed By: #### C MP #### [facility] [address] [address] [address] Anderson Powers CO2 [Moles/Vol] 31.0 mmol/L Normal 21.0-32.0 [facility] Comment on above: Performed By: #### C MP #### [facility] [address] [place] [address] Dr. Anderson Powers Creatinine [Mass/Vol] 0.98 mg/dL Normal 0.70-1.30 [facility] Comment on above: Performed By: #### C MP #### [facility] [address] [place] [address] Dr. Anderson Powers EGFR-AF CYMRO >60 Normal >=60 [facility] Comment on above: Performed By: #### C MP #### [facility] [address] [place] [address] Dr. Anderson Powers EGFR-NON AF CYMRO >60 Normal >=60 [facility] Comment on above: Performed By: #### C MP #### [facility] [address] [place] [address] Dr. Anderson Powers Globulin (S) [Mass/Vol] 2.8 g/dL Normal [facility] Comment on above: Performed By: #### C MP #### [facility] [address] [place] [address] Dr. Anderson Powers Glucose [Mass/Vol] 261 mg/dL Critically high 74-106 [facility] Comment on above: Performed By: #### C MP #### [facility] [address] [place] [address] Dr. Anderson Powers Potassium [Moles/Vol] 4.6 mmol/L Normal 3.5-5.1 [facility] Comment on above: Performed By: #### C MP #### [facility] [address] [address] [address] Anderson Powers Protein [Mass/Vol] 6.7 g/dL Normal 6.4-8.2 [facility] Comment on above: Performed By: #### C MP #### [facility] [address] [address] [address] Anderson Powers Sodium [Moles/Vol] 139 mmol/L Normal 136-145 [facility] Comment on above: Performed By: #### C MP #### [facility] [address] [address] [address] Anderson Powers Urea nitrogen [Mass/Vol] 19.0 mg/dL Critically high 7.0-18.0 [facility] Comment on above: Performed By: #### C MP #### [facility] [address] [address] [address] Anderson Powers Urea nitrogen/Creatinine [Mass ratio] 19.4 mg/mg Normal [facility] Comment on above: Performed By: #### C MP #### [facility] [address] [place] [address] Dr. Anderson Powers Consenton 05-24-2022 Consent [id number] #[id number]:127 Normal [facility] CREATININE BLOODon Creatinine [Mass/Vol] 0.85 mg/dL Normal 0.70-1.30 [facility] Comment on above: Order Comment: No: D o not add to previous draw Performed By: #### 2 5656 #### [facility] [address] [place] [address], [facility] GFR/1.73 sq M.predicted among blacks MDRD (S/P/Bld) [Vol rate/Area] mL/min/{1.73_m2} Normal >60 [facility] Comment on above: Order Comment: No: D o not add to previous draw Performed By: #### 2 5656 #### [facility] [address] GFR/1.73 sq M.predicted among non-blacks MDRD (S/P/Bld) [Vol rate/Area] mL/min/{1.73_m2} Normal >60 [facility] Comment on above: Order Comment: No: D o not add to previous draw Performed By: #### 2 5656 #### [facility] [address] Cardiovascular Lab Reporton 09-17-2021 Cardiovascular Lab Report [facility] Salomón Garner MR #: [id number] Department of Physician: Mario Fisher M.D. Division of Service Date: 09/16/2021 Cardiology Birthdate: 1960 Adult Cardiovascular Room #: [id number] [address] Cardiovascular Laboratory Report CLINICAL PRESENTATION: The patient [...] the REDUCE-IT trial. 6. Outpatient followup with [facility]. 7. Referral to cardiac rehabilitation. PROCEDURES: [...] ultrasound guidance and micropuncture access technique, a 6-Namibian sheath placed in right common femoral artery. Limited femoral angiogram was performed, which showed adequate placement of right common femoral artery. Next, coronary bypass graft angiogram was performed. All catheter exchanges were made over the J-tip guidewire. A 6-Namibian JL4 was engaged to the left main coronary artery. A 6-Namibian JR4 was engaged in right coronary artery. A 6-Namibian BONI catheter was engaged to the left [...] was maintained greater than 200 seconds. A 6-Namibian JR4 guide was engaged to right coronary [...] Th (more content not included)... Normal [facility] APTTon 09-16-2021 aPTT Coag (Bld) [Time] 30.9 s Normal 25.0-35.0 [facility] Comment on above: Order Comment: [...] FOR THIS PURPOSE. Performed By: #### 5 8707, 73545 ####[facility] [facility] [place] [address], [facility] BASIC METABOLIC PANELon 09-01 Calcium [Mass/Vol] 8.8 mg/dL Normal 8.6-10.3 [facility] Comment on above: Order Comment: evalu ate for Aspiration Performed By: #### 4 9813, 89092, 09128, 61382, 14036 ####[facility] [facility] [place] [address], [facility] Chloride [Moles/Vol] 108 mmol/L High 98-107 [facility] Comment on above: Order Comment: evalu ate for Aspiration Performed By: #### 4 6413, 70465, 63488, 75576, 31454 ####[facility] [place] [address], [facility] CO2 [Moles/Vol] 24 mmol/L Normal 21-31 [facility] Comment on above: Order Comment: evalu ate for Aspiration Performed By: #### 4 6413, 33638, 98611, 23084, 06124 ####[facility] [place] [address], [facility] Creatinine [Mass/Vol] 0.86 mg/dL Normal 0.70-1.30 [facility] Comment on above: Order Comment: evalu ate for Aspiration Performed By: #### 4 6413, 04218, 17246, 18341, 75783 ####[facility] [place] [address], [facility] GFR/1.73 sq M.predicted among blacks MDRD (S/P/Bld) [Vol rate/Area] mL/min/{1.73_m2} Normal >60 [facility] Comment on above: Order Comment: evalu ate for Aspiration Performed By: #### 4 6413, 50262, 88058, 83885, 96813 ####[facility] [place] [address], [facility] GFR/1.73 sq M.predicted among non-blacks MDRD (S/P/Bld) [Vol rate/Area] mL/min/{1.73_m2} Normal >60 [facility] Comment on above: Order Comment: evalu ate for Aspiration Performed By: #### 4 6413, 09800, 99030, 47049, 47580 ####[facility] [place] [address], [place] Glucose [Mass/Vol] 142 mg/dL High 70-100 [facility] Comment on above: Order Comment: evalu ate for Aspiration Performed By: #### 4 6413, 36909, 65085, 35422, 90274 ####[facility] Potassium [Moles/Vol] 3.7 mmol/L Normal 3.5-5.1 [facility] Comment on above: Order Comment: evalu ate for Aspiration Performed By: #### 4 6413, 53660, 93187, 33761, 06179 ####[facility] [place] [address], [facility] Sodium [Moles/Vol] 140 mmol/L Normal 136-145 [facility] Comment on above: Order Comment: evalu ate for Aspiration Performed By: #### 4 6413, 17391, 05122, 27184, 92122 ####[facility] [facility] Urea nitrogen [Mass/Vol] 13 mg/dL Normal 7-25 [facility] Comment on above: Order Comment: evalu ate for Aspiration Performed By: #### 4 6413, 49460, 34976, 44535, 38778 ####[facility] [facility] [address] BNP (B-TYPE NATRIURETIC PEPT RORY)on 09-16-2021 Natriuretic peptide B (Bld) [Mass/Vol] 45 pg/mL Normal 0-100 [facility] Comment on above: Order Comment: evalu ate for Aspiration Result Comment: Give n the appropriate clinical setting a BNP result of >100 pg/mL indicates congestive heart failure. Performed By: #### 8 5123 ####[facility] [facility].[address] CBC COMPLETE BLOOD COUNTon 0 09-16-2021 Erythrocyte distribution width (RBC) [Ratio] 14.2 % Normal 11.5-15.0 [facility] Comment on above: Order Comment: No: D o not add to previous draw Performed By: #### 5 0608 #### [facility] [address] [place] [address], [facility] Hematocrit (Bld) [Volume fraction] 44.0 % Normal 39.0-50.0 [facility] Comment on above: Order Comment: No: D o not add to previous draw Performed By: #### 5 0608 #### [facility] [address] [place] [address], [facility] Hemoglobin (Bld) [Mass/Vol] 15.4 g/dL Normal 13.0-17.0 [facility] Comment on above: Order Comment: No: D o not add to previous draw Performed By: #### 5 0608 #### [facility] [address] [place] [address], [facility] MCH (RBC) [Entitic mass] 29.2 pg Normal 27.0-33.0 [facility] Comment on above: Order Comment: No: D o not add to previous draw Performed By: #### 5 0608 #### [facility] [address] [place] [address], [facility] MCHC (RBC) [Mass/Vol] 35.0 g/dL Normal 32.0-35.0 [facility] Comment on above: Order Comment: No: D o not add to previous draw Performed By: #### 5 0608 #### [facility] [address] [place] [address], [facility] MCV (RBC) [Entitic vol] 83.3 fL Normal 82.0-98.0 [facility] Comment on above: Order Comment: No: D o not add to previous draw Performed By: #### 5 0608 #### [facility] [address] [place] [address], [facility] Nucleated RBC/100 WBC (Bld) [Ratio] 0 % Normal 0-0 [facility] Comment on above: Order Comment: No: D o not add to previous draw Performed By: #### 5 0608 #### [facility] [address] [place] [address], [facility] PLAT CNT 124 10*3/uL Low 150-400 [facility] Comment on above: Order Comment: No: D o not add to previous draw Performed By: #### 5 0608 #### [facility] [address] [place] [address], [facility] RBC (Bld) [#/Vol] 5.28 10*6/uL Normal 4.20-5.70 [facility] Comment on above: Order Comment: No: D o not add to previous draw Performed By: #### 5 0608 #### [facility] [address] [facility] [place] [address], [facility] WBC (Bld) [#/Vol] 4.81 10*3/uL Normal 4.00-10.60 [facility] Comment on above: Order Comment: No: D o not add to previous draw Performed By: #### 5 0608 #### [facility] [address] [place] [address], [facility] LIPID PROFILEon 09-16-2021 Cholesterol [Mass/Vol] 193 mg/dL Normal 120-200 [facility] Comment on above: Order Comment: No: D o not add to previous draw Result Comment: CHOL ESTEROL REFERENCE RANGE: 20 YEARS AND OLDER CARDIOVASCULAR RISK Less than 200 mg/dl Low Risk 200 to 239 mg/dl Borderline Risk 240 mg/dl and greater High Risk Performed By: #### 4 6413, 02231, 91007, 69785, 24732 #### [facility] [address] [place] [address], [facility] Cholesterol in HDL [Mass/Vol] 30 mg/dL Normal 23-92 [facility] Comment on above: Order Comment: No: D o not add to previous draw Result Comment: Slig ht variation in normal range could be due to gender and/or age. HDL CHOLESTEROL REFERENCE RANGE: 20 years and older Cardiovascular Risk > or =60 mg/dL Desirable 40 TO 59 mg/dL Low Risk <40 mg/dL High Risk Performed By: #### 4 6413, 86718, 13153, 35128, 19065 #### [facility] [address] [place] [address], [facility] Cholesterol in LDL [Mass/Vol] 121 mg/dL Normal 0-130 [facility] Comment on above: Order Comment: No: D o not add to previous draw Result Comment: LDL IS A CALCULATION LDL IS ONLY VALID IF THE TRIG IS LESS THAN 400. Performed By: #### 4 6413, 17340, 55863, 95839, 09542 #### [facility] [address] [place] [address], [facility] Cholesterol.total/Ch olesterol in HDL [Mass ratio] 6.4 {ratio} High .0-4.5 [facility] Comment on above: Order Comment: No: D o not add to previous draw Performed By: #### 4 6413, 20118, 37934, 38169, 47533 #### [facility] [address] [place] [address], [facility] NON-HDL CHOLESTEROL 163 mg/dL Normal [facility] Comment on above: Order Comment: No: D o not add to previous draw Performed By: #### 4 6413, 21214, 78387, 03066, 72962 #### [facility] [address] [place] [address], [facility] Triglyceride [Mass/Vol] 208 mg/dL High 40-149 [facility] Comment on above: Order Comment: No: D o not add to previous draw Result Comment: TRIG LYCERIDE REFERENCE RANGE: 20 YEARS AND OLDER CARDIOVASCULAR RISK LESS THAN 150 mg/dl LOW RISK 150 TO 199 mg/dl BORDERLINE RISK 200 mg/dl AND GREATER HIGH RISK Performed By: #### 4 6413, 58955, 57703, 86835, 97650 #### [facility] [address] [place] [address], [place] VLDL CHOL 42 mg/dL High 0-40 [facility] Comment on above: Order Comment: No: D o not add to previous draw Performed By: #### 4 6413, 45686, 79079, 15910, 35422 #### [facility] [address] [place] [address], [facility] MAGNESIUM BLOODon 09-16-2021 Magnesium [Mass/Vol] 2.2 mg/dL Normal 1.9-2.7 [facility] Comment on above: Order Comment: No: D o not add to previous draw Performed By: #### 4 6413, 62953, 06893, 06198, 56313 #### [facility] [address] [place] [address], [facility] Magnesium [Mass/Vol] 2.3 mg/dL Normal 1.9-2.7 [facility] Comment on above: Order Comment: if no t done in ED No: Do not add to previous draw Performed By: #### 3 5200, 22343 #### [facility] [address] [place] [address], [facility] PHOSPHORUS BLOODon Phosphate [Mass/Vol] 3.0 mg/dL Normal 2.5-5.0 [facility] Comment on above: Order Comment: No: D o not add to previous draw Performed By: #### 4 6413, 27056, 95510, 36724, 65505 #### [facility] [address] [facility]. 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 Performed By: #### 3 2044 #### [facility] [address] [facility]. [address] PROTHROMBIN TIMEon 2 INR Coag (PPP) [Relative time] 1.02 {INR} Normal 0.91-1.16 [facility] Comment on above: Order Comment: [...] CHEST 1995;[id number]. Performed By: #### 5 7307, 83331 ####[facility] [facility] [place] [address], [facility] PT Coag (PPP) [Time] 13.4 s Normal 12.3-14.8 [facility] Comment on above: Order Comment: evalu ate for Aspiration Result Comment: ALL RESULTS MUST BE INTERPRETED WITH RESPECT TO BLOOD DRAWING ARTIFACT OR DILUTION ERROR OF ANTICOAGULANT AT THE TIME OF SAMPLING. Performed By: #### 5 7307, 00537 ####[facility] TROPONIN-Ion 09-16-2021 Troponin I.cardiac [Mass/Vol] 0.00 ng/mL Normal 0.00-0.04 [facility] Comment on above: Order Comment: No: D o not add to previous draw Result Comment: REFE RENCE RANGES: 0.00 - 0.04 ng/ml NORMAL 0.05 - 0.50 ng/ml INDETERMINATE > 0.50 ng/ml CONSISTENT WITH AN M.I. Performed By: #### 4 6413, 33155, 35201, 25537, 45656 #### [facility] [address] [place] [address], [facility] Troponin I.cardiac [Mass/Vol] 0.00 ng/mL Normal 0.00-0.04 [facility] Comment on above: Order Comment: No: D o not add to previous draw Result Comment: REFE RENCE RANGES: 0.00 - 0.04 ng/ml NORMAL 0.05 - 0.50 ng/ml INDETERMINATE > 0.50 ng/ml CONSISTENT WITH AN M.I. Performed By: #### 3 5200, 68739 #### [facility] [address] [place] [address], [facility] BASIC METABOLIC PANELon 09-01 Calcium [Mass/Vol] 9.3 mg/dL Normal 8.6-10.3 [facility] Comment on above: Performed By: #### 0 0071, 70304 ####[facility] [place] [address], [facility] Chloride [Moles/Vol] 106 mmol/L Normal 98-107 [facility] Comment on above: Performed By: #### 0 70, 32230 ####[facility] [facility] [place] [address], [facility] CO2 [Moles/Vol] 24 mmol/L Normal 21-31 [facility] Comment on above: Performed By: #### 0 70, 67050 ####[facility] [facility] [id number], [facility] Creatinine [Mass/Vol] 0.96 mg/dL Normal 0.70-1.30 [facility] Comment on above: Performed By: #### 0 70, 30018 ####[facility] [facility] [place] [address], [facility] GFR/1.73 sq M.predicted among blacks MDRD (S/P/Bld) [Vol rate/Area] mL/min/{1.73_m2} Normal >60 [facility] Comment on above: Performed By: #### 0 70, 23500 ####[facility] [facility] [place] [address], [facility] GFR/1.73 sq M.predicted among non-blacks MDRD (S/P/Bld) [Vol rate/Area] mL/min/{1.73_m2} Normal >60 [facility] Comment on above: Performed By: #### 0 70, 79976 ####[facility] [facility] [id number], [facility] Glucose [Mass/Vol] 143 mg/dL High 70-100 [facility] Comment on above: Performed By: #### 0 70, 72644 ####[facility] [facility] [address], [facility] Potassium [Moles/Vol] 4.3 mmol/L Normal 3.5-5.1 [facility] Comment on above: Performed By: #### 0 70, 72906 ####[facility] Sodium [Moles/Vol] 138 mmol/L Normal 136-145 [facility] Comment on above: Performed By: #### 0 0071, 47154 ####[facility] Urea nitrogen [Mass/Vol] 13 mg/dL Normal 7-25 [facility] Comment on above: Performed By: #### 0 1, 08154 ####[facility] CBC W/DIFFon 09-15-2021 ABS IMM GRANS 0.0 10*3/uL Normal 0.0-0.2 The [facility] Comment on above: Performed By: #### 5 0103 ####[facility] ABS NEUTROPHILS 3.8 10*3/uL Normal 1.6-7.6 The [facility] Comment on above: Performed By: #### 5 0103 ####[facility] Basophils (Bld) [#/Vol] 0.1 10*3/uL Normal 0.0-0.2 [facility] Comment on above: Performed By: #### 5 0103 ####[facility] Basophils/100 WBC (Bld) 0.8 % Normal 0.0-1.0 [facility] Comment on above: Performed By: #### 5 3 ####[facility] [place] [address], [facility] Eosinophils (Bld) [#/Vol] 0.1 10*3/uL Normal 0.0-0.5 [facility] Comment on above: Performed By: #### 5 0103 ####[facility] [facility] [place] [address], [facility] Eosinophils/100 WBC (Bld) 1.5 % Normal 0.0-6.0 [facility] Comment on above: Performed By: #### 5 3 ####[facility] [facility].[address] Erythrocyte distribution width (RBC) [Ratio] 14.0 % Normal 11.5-15.0 [facility] Comment on above: Performed By: #### 3 ####[facility] [facility].[address] Hematocrit (Bld) [Volume fraction] 45.1 % Normal 39.0-50.0 [facility] Comment on above: Performed By: #### 5 3 ####[facility] [facility].[address] Hemoglobin (Bld) [Mass/Vol] 15.4 g/dL Normal 13.0-17.0 [facility] Comment on above: Performed By: #### 5 3 ####[facility] [facility] [place] [address], [facility] IMMATURE GRANS 0.5 % Normal 0.0-1.[address] [facility] Comment on above: Performed By: #### 5 3 ####[facility] [facility] [place] [address], [facility] Lymphocytes (Bld) [#/Vol] 1.5 10*3/uL Normal 1.2-4.0 [facility] Comment on above: Performed By: #### 5 3 ####[facility] [facility] [place] [address], [facility] Lymphocytes/100 WBC (Bld) 24.6 % Normal 20.0-45.0 [facility] Comment on above: Performed By: #### 5 0103 ####[facility] MCH (RBC) [Entitic mass] 29.0 pg Normal 27.0-33.0 [facility] Comment on above: Performed By: #### 5 3 ####[facility] MCHC (RBC) [Mass/Vol] 34.1 g/dL Normal 32.0-35.0 [facility] Comment on above: Performed By: #### 3 ####[facility] MCV (RBC) [Entitic vol] 84.9 fL Normal 82.0-98.0 [facility] Comment on above: Performed By: #### 3 ####[facility] Monocytes (Bld) [#/Vol] 0.6 10*3/uL Normal 0.1-1.0 [facility] Comment on above: Performed By: #### 3 ####[facility] MONOS 9.2 % Normal 5.0-12.0 [facility] Comment on above: Performed By: #### 5 3 ####[facility] Neutrophils/100 WBC (Bld) 63.4 % Normal 40.0-72.0 [facility] Comment on above: Performed By: #### 3 ####[facility] Nucleated RBC/100 WBC (Bld) [Ratio] 0 % Normal 0-0 [facility] Comment on above: Performed By: #### 5 0103 ####[facility] PLAT CNT 155 10*3/uL Normal 150-400 [facility] Comment on above: Performed By: #### 5 0103 ####[facility] RBC (Bld) [#/Vol] 5.31 10*6/uL Normal 4.20-5.70 [facility] Comment on above: Performed By: #### 5 0103 ####[facility] [place] [address], [facility] WBC (Bld) [#/Vol] 6.06 10*3/uL Normal 4.00-10.60 [facility] Comment on above: Performed By: #### 5 0103 ####[facility] PORTABLE CHEST 1 VIEWon 09-01 PORTABLE CHEST 1 VIEW [facility] Department of Radiology [address] [place] [address] Patient Name: SALOMÓN JUSTICE : 1960 Sex: M Age: Race: White Pt. Location: [facility] Patient Status: E Ordered Date: 09/15/2021 [...] clinically. Electronically signed: Alex Quintana. Transcribed by: [email or web address], User Resident: ALEX QUINTANA Electronically Signed by: ALEX QUINTANA @ 09/15/2021 01:45 PM I personally read this/these film(s) with this resident Normal The [facility] Comment on above: Order Comment: evalu ate for Aspiration TROPONIN-Ion 09-15-2021 Troponin I.cardiac [Mass/Vol] 0.00 ng/mL Normal 0.00-0.04 [facility] Comment on above: Result Comment: REFE RENCE RANGES: 0.00 - 0.04 ng/ml NORMAL 0.05 - 0.50 ng/ml INDETERMINATE > 0.50 ng/ml CONSISTENT WITH AN M.I. Performed By: #### 0 0071, 76849 ####[facility] Encounters Encounter Date Encounter Type Care Provider Facility Start: 02-07-2025 End: 02-07-2025 [facility] Start: 08-23-2024 End: 08-23-2024 [facility] Start: 06-13-2024 End: 06-13-2024 [facility] Start: 10-22-2022 End: 10-23-[address] HILLARY COLIN Facility:[facility] Start: 07-07-2022 End: 07-08-[address] MITESH VÁSQUEZ Facility:[facility] Start: 05-24-2022 End: 05-25-2022 ambulatory Horace MANDEL Facility:[facility] Start: 09-15-2021 End: 09-17-2021 ambulatory REFERRED SELF Facility:[facility] Procedures Date Procedure Procedure Detail Performing Clinician Start: 07-07-[address] HILLARY MCCARTNEY Comment on above: Performed By: #### P SAD #### [facility] [address] [place] [address] [address] Anderson Powers Payers Date Payer Category Payer Unknown [id number] 1960 Unknown [id number] 1960 Unknown [id number] 1959 Medicaid [id number] 1959 Private Health Insurance [id number] Progress note 02-07-2025 Note Date & Type Note Facility 02-07-2025 Note [facility] Cardiology Clinic Note Chief Complaint; Patient here for 6 mo follow up CAD, hyperlipidemia, valvular heart disease, and hypertension. Had liver and lipid panel drawn this morning. He is due next month for his biannual Leqvio injection. Says he's doing very well. He's able to ride his bike without chest pain and SOB. LE edema resolves by morning. HPI: Salomón Justice is a 63 y.o. [...] stable. No significant changes to his symptoms. UPDATE 11/16/2023 Salomón has been experiencing progressively worsening anginal chest pain; he has been increasing his nitro intake He has noticed that he has limited physical activity before he has to stop due to retrosternal chest pressure. It last for few minutes and resolves. He is also more short of breath. No orthopnea, no paroxysmal, dyspnea, no significant lower extremity edema. UPDATE 06/13/2024 Doing well overall. Has intermittent chest pain when he is stressed or overexerts himself. 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 He saw Dr. Juju Adair many years ago and I am the fellow at that time. UPDATE 08/23/2024 Ever since taking Zetia, he has felt lightheaded and off balance. It also gives him nausea. His chest pain is stable as long as he avoids a cold. UPDATE 02/07/2025 Doing well; no new cardiac symptoms Rides his bike frequently 1 to 2 miles without symptoms Cardiology ROS: Review of Systems Cardiovascular: Positive for leg swelling (resolves by morning). Musculoskeletal: Positive for arthritis, joint pain and muscle weakness. Past Medical History He has a past medical history of Coronary artery disease, Heart valve disease, Hyperlipidemia, and Hypertension. Surgical History He has a past surgical history that includes Coronary artery bypass graft; Coronary angioplasty with stent; and Cardiac catheterization. Social History He reports that he has quit smoking. His smoking use included cigarettes. He has never used smokeless tobacco. No history on file for alcohol use and drug use. Family History No family history on file. Allergies Ranolazine Medications Current Outpatient Medications: alirocumab (Praluent Pen) 150 mg/mL pen injector, Inject 150 mg under the skin every 14 (fourteen) days., Disp: 2 mL, Rfl: 11 aspirin 81 mg chewable tablet, Chew 81 mg 2 times daily., Disp: , Rfl: clopidogrel (Plavix) 75 mg tablet, TAKE 1 TABLET BY MOUTH IN THE MORNING, Disp: 90 tablet, Rfl: 0 colchicine 0.6 mg tablet, Take 1/2 (one-half) tablet by mouth once daily (Patient not taking: Reported on 06/13/2024), Disp: 45 tablet, Rfl: 3 dilTIAZem (Cardizem) 120 mg immediate release tablet, Take 1 tablet (120 mg) by mouth at bedtime., Disp: 90 tablet, Rfl: 3 dilTIAZem CD (Cardizem CD) 240 mg 24 hr capsule, Take 1 capsule (240 mg) by mouth in the morning., Disp: 90 capsule, Rfl: 3 ezetimibe (Zetia) 10 mg tablet, Take 1 tablet (10 mg) by mouth once daily as directed., Disp: 90 tablet, Rfl: 3 inclisiran (Leqvio) 284 mg/1.5 mL syringe, Inject 1.5 mL (284 mg) under the skin every 6 (six) months. Every 6 months, Disp: 1.5 mL, Rfl: 1 isosorbide mononitrate ER (Imdur) 30 mg 24 hr tablet, TAKE 1 TABLET BY MOUTH ONCE DAILY AND 1/2 TABLET AT NIGHT, Disp: 135 tablet, Rfl: 3 metoprolol tartrate (Lopressor) 100 mg tablet, Take 1 tablet (100 mg) by mouth in the morning and at bedtime., Disp: 180 tablet, Rfl: 3 nitroglycerin (Nitrostat) 0.4 mg SL tablet, Place 1 tablet (0.4 mg) under the tongue every 5 (five) minutes if needed for chest pain. Call 911 for ongoing chest pain after 3 doses, Disp: 25 tablet, Rfl: 4 Vascepa 1 gram capsule, TAKE 2 CAPSULES BY MOUTH TWICE DAILY WITH MEALS (MORNING AND EVENING), Disp: 360 capsule, Rfl: 3 Last Recorded Vitals BP 108/76 (BP Location: Left arm, Patient Position: Sitting) Pulse 59 Ht 1.778 m (5' 10 ) Wt 106 kg (234 lb) SpO2 93% BMI 33.58 kg/m??? Physical Examination: GENERAL: alert and oriented x3, well developed, in no acute distress. HEAD: atraumatic, normocephalic. EYES: FELICIANO, EOMI. (more content not included)... [facility] Progress note 08-23-2024 Note Date & Type Note Facility 08-23-2024 Note [facility] Cardiology Clinic Note Chief Complaint; CHEST PAIN WHILE OUT SIDE IN THE COLD AND HAULING WOOD, HE FEELS LIKE HE IS GOING TO FALL SINCE STARTING ZETIA HPI: Salomón Justice is a 63 y.o. [...] stable. No significant changes to his symptoms. UPDATE 11/16/2023 Salomón has been experiencing progressively worsening anginal chest pain; he has been increasing his nitro intake He has noticed that he has limited physical activity before he has to stop due to retrosternal chest pressure. It last for few minutes and resolves. He is also more short of breath. No orthopnea, no paroxysmal, dyspnea, no significant lower extremity edema. UPDATE 06/13/2024 Doing well overall. Has intermittent chest pain when he is stressed or overexerts himself. 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 He saw Dr. Juju Adair many years ago and I am the fellow at that time. UPDATE 08/23/2024 Ever since taking Zetia, he has felt lightheaded and off balance. It also gives him nausea. His chest pain is stable as long as he avoids a cold. Cardiology ROS: Review of Systems Cardiovascular: Positive for chest pain. Past Medical History He has a past medical history of Coronary artery disease, Heart valve disease, Hyperlipidemia, and Hypertension. Surgical History He has a past surgical history that includes Coronary artery bypass graft; Coronary angioplasty with stent; and Cardiac catheterization. Social History He reports that he has quit smoking. His smoking use included cigarettes. He has never used smokeless tobacco. No history on file for alcohol use and drug use. Family History No family history on file. Allergies Ranolazine Medications Current Outpatient Medications: alirocumab (Praluent Pen) 150 mg/mL pen injector, Inject 150 mg under the skin every 14 (fourteen) days., Disp: 2 mL, Rfl: 11 aspirin 81 mg chewable tablet, Chew 81 mg 2 times daily., Disp: , Rfl: Cartia XT 240 mg 24 hr capsule, Take 1 capsule by mouth once daily, Disp: 90 capsule, Rfl: 0 clopidogrel (Plavix) 75 mg tablet, TAKE 1 TABLET BY MOUTH IN THE MORNING, Disp: 90 tablet, Rfl: 0 colchicine 0.6 mg tablet, Take 1/2 (one-half) tablet by mouth once daily (Patient not taking: Reported on 06/13/2024), Disp: 45 tablet, Rfl: 3 dilTIAZem (Cardizem) 120 mg immediate release tablet, TAKE 1 TABLET BY MOUTH AT BEDTIME, Disp: 90 tablet, Rfl: 0 ezetimibe (Zetia) 10 mg tablet, Take 1 tablet (10 mg) by mouth once daily as directed., Disp: 90 tablet, Rfl: 3 inclisiran (Leqvio) 284 mg/1.5 mL syringe, Inject 284 mg under the skin 1 (one) time. Every 6 months, Disp: , Rfl: isosorbide mononitrate ER (Imdur) 30 mg 24 hr tablet, TAKE ONE TABLET BY MOUTH IN THE DAY AND HALF TABLET IN THE NIGHT, Disp: 60 tablet, Rfl: 11 metoprolol tartrate (Lopressor) 100 mg tablet, Take 1 tablet by mouth twice daily, Disp: 180 tablet, Rfl: 0 nitroglycerin (Nitrostat) 0.4 mg SL tablet, Place 1 tablet (0.4 mg) under the tongue every 5 (five) minutes if needed for chest pain. Call 911 for ongoing chest pain after 3 doses, Disp: 25 tablet, Rfl: 4 Vascepa 1 gram capsule, TAKE 2 CAPSULES BY MOUTH TWICE DAILY WITH MEALS (MORNING AND EVENING), Disp: 720 capsule, Rfl: 0 Last Recorded Vitals BP 115/71 Pulse 50 Wt 110 kg (243 lb) SpO2 99% BMI 34.87 kg/m??? Physical Examination: GENERAL: alert and oriented [...] extremities. PSYCH: appropriate mood, affect, and judgement. INVESTIGATIONS: Echocardiogram 10/13/2022 Global left vent (more content not included)... [facility] Progress note 06-13-2024 Note Date & Type Note Facility 06-13-2024 Note [facility] Cardiology Clinic Note Chief Complaint: Patient here for 6 mo follow up CAD, hypertension, dyslipidemia, and valvular heart disease. Still has a lot of soreness in his chest, usually at rest. Says he feels fine when he's outside exerting himself, like cutting wood. No recent labs. He's due for another Leqvio injection in a few months. HPI: Salomón Justice is a 63 y.o. [...] stable. No significant changes to his symptoms. UPDATE 11/16/2023 Salomón has been experiencing progressively worsening anginal chest pain; he has been increasing his nitro intake He has noticed that he has limited physical activity before he has to stop due to retrosternal chest pressure. It last for few minutes and resolves. He is also more short of breath. No orthopnea, no paroxysmal, dyspnea, no significant lower extremity edema. UPDATE 06/13/2024 Doing well overall. Has intermittent chest pain when he is stressed or overexerts himself. 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 He saw Dr. Juju Adair many years ago and I am the fellow at that time. Cardiology ROS: Review of Systems Constitutional: Positive for weight loss (12# since November 2023). Cardiovascular: Positive for chest pain ( soreness , always ) and dyspnea on exertion. Neurological: Positive for light-headedness ( sometimes ). All other systems reviewed and are negative. Past Medical History He has a past medical history of Coronary artery disease and Hypertension. Surgical History He has a past surgical history that includes Coronary artery bypass graft and Coronary angioplasty with stent. Social History He reports that he has quit smoking. His smoking use included cigarettes. He has never used smokeless tobacco. No history on file for alcohol use and drug use. Family History No family history on file. Allergies Ranolazine Medications Current Outpatient Medications: alirocumab (Praluent Pen) 150 mg/mL pen injector, Inject 150 mg under the skin every 14 (fourteen) days., Disp: 2 mL, Rfl: 11 aspirin 81 mg chewable tablet, Chew 81 mg 2 times daily., Disp: , Rfl: Cartia XT 240 mg 24 hr capsule, Take 1 capsule by mouth once daily, Disp: 90 capsule, Rfl: 0 clopidogrel (Plavix) 75 mg tablet, TAKE 1 TABLET BY MOUTH IN THE MORNING, Disp: 90 tablet, Rfl: 0 colchicine 0.6 mg tablet, Take 1/2 (one-half) tablet by mouth once daily, Disp: 45 tablet, Rfl: 3 dilTIAZem (Cardizem) 120 mg immediate release tablet, TAKE 1 TABLET BY MOUTH AT BEDTIME, Disp: 90 tablet, Rfl: 0 inclisiran (Leqvio) 284 mg/1.5 mL syringe, Inject 284 mg under the skin 1 (one) time. Every 6 months, Disp: , Rfl: isosorbide mononitrate ER (Imdur) 30 mg 24 hr tablet, TAKE ONE TABLET BY MOUTH IN THE DAY AND HALF TABLET IN THE NIGHT, Disp: 60 tablet, Rfl: 11 metoprolol tartrate (Lopressor) 100 mg tablet, Take 1 tablet by mouth twice daily, Disp: 180 tablet, Rfl: 0 nitroglycerin (Nitrostat) 0.4 mg SL tablet, Place 1 tablet (0.4 mg) under the tongue every 5 (five) minutes if needed for chest pain. Call 911 for ongoing chest pain after 3 doses, Disp: 25 tablet, Rfl: 4 Vascepa 1 gram capsule, TAKE 2 CAPSULES BY MOUTH TWICE DAILY WITH MEALS (MORNING AND EVENING), Disp: 720 capsule, Rfl: 0 Last Recorded Vitals BP 134/84 (BP Location: Right arm, Patient Position: Sitting) Pulse (!) 47 Ht 1.778 m (5' 10 ) Wt 106 kg (234 lb) SpO2 97% BMI 33.58 kg/m??? Physical Examination: GENERAL: alert and oriented [...] in bilateral upper and lower extremities. PSYCH: approp (more content not included)... [facility] Discharge summary note 09-17-2021 Note Date & Type Note Facility 09-17-2021 Note MR#: [id number] [facility] Pt. Name: Salomón Justice Admitted: [...] Benites MD Date Trans: 09/17/2021 09:46 A/raphael [id number] cc: Mitesh Vásquez D.O. [address] [facility] [id number] [facility] Summary Purpose Family History No [...] and content) DATE CREATED AUTHOR 03/31/2022 [facility] DATE CREATED AUTHOR AUTHOR'S ORGANIZ ATION 08/24/2022 [facility] DATE CREATED AUTHOR AUTHOR'S ORGANIZ ATION 10/25/2022 [facility] DATE CREATED AUTHOR AUTHOR'S ORGANIZ ATION 02/11/2025 [facility] FOR RECORDS PERTAINING TO PATIENTS WHO ARE [...] BE BASED ON THE PRIMARY CLINICAL RECORDS. [email or web address] provides no warranty or guarantee of the accuracy or completeness of information in this document.
[2025-03-27 11:07] LABS: Hematocrit 43.9 % (42.0-54.0); Hemoglobin 15.6 g/dL (14.0-18.0); Immature Granulocytes Abs Auto 0.02 10^3/uL (0.00-0.03); Immature Granulocytes Pct Auto 0.4 % (0.0-0.5); Lymphocytes Absolute Auto 1.6 10^3/uL (1.2-3.8); Mean Corpuscular HGB Conc 35.5 g/dL (29.9-35.2); Mean Corpuscular Hemoglobin 29.8 pg (25.9-34.0); Mean Corpuscular Volume 83.9 fL (80.0-94.0); Platelet Count 122 10^3/uL (150-450); Red Blood Count 5.23 10^6/uL (4.70-6.10); White Blood Count 5.3 10^3/uL (4.0-11.0)
[2025-03-27 11:19] LABS: Anion Gap 13.9; Blood Urea Nitrogen 21.0 mg/dL (7.0-18.0); Calcium 8.7 mg/dL (8.5-10.1); Carbon Dioxide 24.3 mmol/L (21.0-32.0); Chloride 102 mmol/L (98-107); Estimated GFR (African America >60 (>=60 mL/min/1.73m^2); Estimated GFR (Non-African Ame >60 (>=60 mL/min/1.73m^2); Glucose 416 mg/dL (74-106); Potassium 4.2 mmol/L (3.5-5.1); Sodium 136 mmol/L (136-145)
== END 2025-03-27 10:39 | disposition home or self-care (01) ==
LOC: LAB 10:40
PROVIDERS: Visit Provider Internal Medicine Interventional Cardiology
DX: I10 Essential (primary) hypertension (principal)
CPT/HCPCS: 36415; 80048; 85025

== ENCOUNTER 2025-06-14 10:56 | Outpatient (RCR) | payer MEDICARE, MEDICAID, SELFPAY ==
[2025-06-14] MEDS: INCLISIRAN SODIUM 284 MG/1.5 ML SYRINGE SQ (11:13)
[2025-06-14 11:45] VITALS: BP 102/71; PULSE 53; TEMP 36.1; O2SAT 95
== END 2025-06-30 23:59 | disposition home or self-care (01) ==
LOC: INF 10:56
PROVIDERS: Visit Provider Internal Medicine Interventional Cardiology
DX: I25.10 Atherosclerotic heart disease of native coronary artery without angina pectoris (principal); E78.5 Hyperlipidemia, unspecified
CPT/HCPCS: 96372; J1306

== ENCOUNTER 2025-06-20 09:20 | Outpatient (OUT) | payer MEDICARE, MEDICAID, SELFPAY ==
--- OUTSIDE RECORDS SUMMARY | 2025-06-20 09:30 | XMS_ITS | CCD ---
Author Organization [facility] Care Team Providers Care Fluorescent Lamp Replacer Name Role Phone SELF, REFERRED Referring Unavailable [...] Unavailable HOUSE, DR VASQUES Attending Unavailable ELTAHAWY, EHAB Referring Unavailable ELTAHAWY, EHAB Referring Unavailable ELTAHAWY, EHAB Referring Unavailable ELTAHAWY, EHAB Attending Unavailable ELTAHAWY, EHAB Attending Unavailable ELTAHAWY, EHAB Attending Unavailable ELTAHAWY, EHAB Attending Unavailable ELTAHAWY, EHAB Admitting Unavailable ELTAHAWY, EHAB Attending Unavailable Allergies Allergy ClassificationReported Allergen(s)Allergy TypeDate of OnsetReaction(s) Facility (1 source)black walnut pollen extractDrug Ztvvxrn18-19-7228Cmw [facility] Repository (1 source)ranolazineDrug Qxpgizz98-26-9038Otp [facility] Repository (1 source)RENAXDrug allergy (disorder)94-61-1426Zuv [facility] Repository (1 source)ezetimibe; Translations: [EZETIMIBE]Drug Azutgmn14-19-2016[facility]whd[facility] Repository (1 source)ranolazine; Translations: [RANOLAZINE]Drug Ftpznlg38-39-1227KwlgitxowlNewark Hospital Repository Problems Active Problems Problem ClassificationProblemDateDocumented DateEpisodic/ChronicCoronary atherosclerosis and other heart disease (6 sources)Atherosclerotic heart disease of [place] coronary artery without angina pectoris; Translations: [Unstable angina]Onset: 92-88-9468CbxuxrqVbikojuq atherosclerosis and other heart disease (2 sources)Presence of coronary angioplasty implant and graft; Translations: [Presence of coronary angioplastyimplant and graft]Onset: 05-56-9210Hoyzzjvh Diabetes mellitus without complication (4 sources)Type 2 diabetes mellitus without complications; Translations: [TYPE 2 DM WITHOUT COMPLICATIONS]Onset: 93-36-0964YqkgmwoEeqdpfcsf of lipid metabolism (8 sources)Other hyperlipidemia; Translations: [Hyperlipidemia, unspecified] Onset: 03-55-7292VmzosveCylhpthmdz disorders (2 sources)Gastro-esophageal reflux disease without esophagitis; Translations: [Gastro-esophageal reflux disease without esophagitis]Onset: 12-54-0039Jvnsawb Essential hypertension (3 sources)Essential (primary) hypertension; Translations: [ESSENTIAL PRIMARY HYPERTENSION]Onset: 92-42-2378ActmvpdKudpgnbigczkq symptoms and ill-defined conditions (3 sources)Hesitancy of micturition; Translations: [Other difficulties with micturition]Onset: 00-23-2712XirjlvojTalzkagdkra chest pain (2 sources)Other chest pain; Translations: [Other chest pain]Onset: 03-27-2025 EpisodicSpondylosis; intervertebral disc disorders; other back problems (1 source)Cervicalgia; Translations: [CERVICALGIA]Onset: 29-86-5469Zcpbevmw Past or Other Problems Problem ClassificationProblemDateDocumented DateEpisodic/ChronicResidual codes; unclassified (2 sources)Edema, unspecified; Translations: [Edema, unspecified]Onset: 82-06-1332Xpqayulg Results Test NameValueInterpretationReference RangeFacilityFollow-Upon 06-12-2025 Follow-[id number] Salomón Justice 1960 M Date Provider Department Center 06/12/2025 Adams-TIMMY ARRIAGA [facility] Family History Problem Relation Age of Onset Coronary artery disease Mother Diabetes Sister Coronary artery disease Brother Family Status - Relation Status Age at Mother Father Sister Brother Level of Service:52610 [place] OFFICE/OUTPATIENT ESTABLISHED MOD MDM 30 [facility]36on [id number] Discharge Call Good morning, I am Roslyn Petty RN a lead nurse from [facility]. I am calling you to follow up on your stay with us and make sure all of your questions have been answered. You will be receiving a survey either electronic or via mail and we always aim to receive 9???s and 10???s. If there is any reason you feel as though you cannot give us these scores please indicate that now. 1. How have you been feeling since being discharged from the hospital? Salomón has been feeling good and is getting ready to take a walk and he got good sleep last night. 2. Did you understand your discharge instructions when they were given to prior to leaving? Yes Were you given an opportunity to ask questions? Yes 3. While a patient in the hospital, was your call light answered in a timely manner? Yes 4. Do have access to all medications that were prescribed to you at discharge? Yes 5. How would you rate your overall stay on a scale of 0-10, 10 being the best experience you have ever had. 10, Salomón said we were the best and would give us a 12! 6. Do you have any further questions you would like to discuss? No Patient Name Salomón Justice Date [facility]/11/25NormalUniMer[facility] HospitalTechild[facility] 04-11-2025 [id number] Salomón Justice 1960 M Date Provider Department Center 04/11/2025 1603-ROSLYN PETTY [facility] C Family History Problem Relation Age of Onset Coronary artery disease Mother Diabetes Sister Coronary artery disease Brother Family Status - Relation Status Age at Mother Father Sister Brother Reason for Visit and Comments: Hospital Follow-up [832]NormalUnNewark Hospital30on 04-10-2025 30The patient is Moderately Stable - Low risk of patient condition declining or worsening The patient's goals for the shift include Comfort and rest The clinical goals for the shift include VSS and safety Problem: Pain - Adult Goal: Verbalizes/displays adequate comfort level or baseline comfort level 04/10/2025 1050 by Lucie Allen RN Outcome: Progressing 04/10/2025 1050 by Lucie Allen RN Outcome: Progressing Problem: Safety - Adult Goal: Free from fall injury 04/10/2025 1050 by Lucie Allen RN Outcome: Progressing 04/10/2025 105 by Lucie Allen RN Outcome: Progressing Problem: Discharge Planning Goal: Discharge to home or other facility with appropriate resources 04/10/2025 105 by Lucie Allen RN Outcome: Progressing 04/10/2025 105 by Lucei Allen RN Outcome: Progressing Problem: Chronic Conditions and Co-morbidities Goal: Patient's chronic conditions and co-morbidity symptoms are monitored and maintained or improved 04/10/20251049 by Lucie Allen RN Outcome: Progressing 04/10/20251049 by Lucie Allen RN Outcome: ProgressingNormalUniversTriHealth McCullough-Hyde Memorial HospitalCBCon 04-10-2025 Erythrocyte distribution width (RBC) [Ratio]13.4 %Rbcjsw54.5-15.0UnNewark HospitalComment on above:Performed By: #### [id number] ####[facility] (BEAKER)[address] [place], [place] [address]LFIIAYJNLPF MEAN CORPUSCULAR HEMOGLOBIN CONCENTRATION (G/DL) BY VTFXDNDPA28.1 g/fWZncg80.0-35.0 [facility] FoundationComment on above:Performed By: #### [id number] ####[facility] (BEAKER)[address] [place], [place] [address]Wsqgfqbfvp (Bld) [Volume fraction]44.7 %Sjnsnr93.0-50.0UnNewark Hospital Comment on above:Performed By: #### [id number] ####[facility] (BE[facility]ER)[address] [facility] [place], [place] [address]Qkxmdxodmj (Bld) [Mass/Vol]15.7 g/iGAmuuhm92.0-17.0 [facility] FoundationComment on above:Performed By: #### [id number] ####[facility] (BEAKER)[address] [facility], [place] [address]PVBFPEZR PLATELET FRACTION %2.5 %Normal0.8-6.3UnNewark HospitalComment on above:Performed By: #### [id number] ####[facility] ([facility])[address] [place] [address]MSS (RBC) [Entitic mass]29.7 lpTkfuak36.0-33.0UnNewark HospitalComment on above:Performed By: #### [id number] ####[facility] ([facility])[address] [place] [address]FRU (RBC) [Entitic vol] 84.7 jQGqwofc77.0-98.0UnNewark HospitalComment on above: Performed By: #### [id number] ####[facility] ([facility])[address] [place] [address]QYRSBXFJU (10*3/UL) IN BLOOD AUTOMATED [id number] 10*3/uLLow 150-400UnNewark HospitalComment on above:Performed By: #### [id number] ####[facility] ([facility])[address] [place] [address]AFO (Bld) [#/Vol]5.28 10*6/uLNormal4.20-5.70UnNewark HospitalComment on above:Performed By: #### [id number] ####[facility] ([facility])[address] [place] [address]ZMI (Bld) [#/Vol]5.05 10*3/uLNormal4.00-10.60UnNewark HospitalComment on above:Performed By: #### [id number] ####[facility] ([facility])[address] [place] [address]MMlj 62-63-2404XL Admission Admitted 04/09/2025 for Other chest pain Discharge Diagnosis Coronary artery disease Discharge Disposition Home or Self Care () Discharge Medications Your medication list CONTINUE taking these medications Instructions Last Dose Given Next Dose Due aspirin 81 mg chewable tablet clopidogrel 75 mg tablet Commonly known as: Plavix TAKE 1 TABLET BY MOUTH IN THE MORNING dilTIAZem CD 120 mg 24 hr capsule Commonly known as: Cardizem CD dilTIAZem CD 240 mg 24 hr capsule Commonly known as: Cardizem CD Take 1 capsule (240 mg) by mouth in the morning. isosorbide mononitrate ER 30 mg 24 hr tablet Commonly known as: Imdur TAKE 1 TABLET BY MOUTH ONCE DAILY AND 1/2 TABLET AT NIGHT metoprolol tartrate 100 mg tablet Commonly known as: Lopressor Take 1 tablet (100 mg) by mouth in the morning and at bedtime. nitroglycerin 0.4 mg SL tablet Commonly known as: Nitrostat Place 1 tablet (0.4 mg) under the tongue every 5 (five) minutes if needed for chest pain. Call 911 for ongoing chest pain after 3 doses Praluent Pen 150 mg/mL pen injector Generic drug: alirocumab Inject 150 mg under the skin every 14 (fourteen) days. Vascepa 1 gram capsule Generic drug: icosapent ethyL TAKE 2 CAPSULES BY MOUTH TWICE DAILY WITH MEALS (MORNING AND EVENING) ASK your doctor about these medications Instructions Last Dose Given Next Dose Due Leqvio 284 mg/1.5 mL syringe Generic drug: inclisiran Inject 1.5 mL (284 mg) under the skin every 6 (six) months. Every 6 months Activity Unless otherwise instructed you may: , ??? Resume normal activity in two days, including driving, letting pain be your guide. , ??? Limit lifting over 10 pounds for one week or until wound heals. No driving for 24 hours post procedure. You may shower 24 hours after the procedure. Remove the bandage from the hospital before showering. , ??? Gently clean site using soap and water while standing in the shower. Dry thoroughly. , ??? Cleaning the site with soap and water is sufficient. Do not apply antibiotic ointments, powders or lotions. Diet Continue on the same type of diet and foods as you were eating before your admission. Drink plenty of water. Allergies Ranolazine and Zetia [ezetimibe] Hospital Course Salomón Justice is a 65-year-old male with a history of coronary artery disease, prior CABG, multiple PCI with stent placements, and recurrent in-stent restenosis, hypertension and hyperlipidemia. He underwent coronary angiography which demonstrated 40-50% in-stent restenosis of the left main and 60-70% restenosis of the LAD, both successfully reduced to 10-20% with balloon angioplasty. Additional findings included 99% ostial restenosis with mid-portion occlusion of the LCx, chronic mid LAD occlusion with distal filling via a patent PEREZ graft, widely patent RCA stents with only ~30% restenosis, and 50-60% ostial stenosis of the left vertebral artery. The procedure was performed via right femoral access with Mynx closure and no complications. Groin sites are intact, no oozing, bleeding, hematoma, evidence of pseudoaneurysm. Patient denies pain or tenderness from the site, and denies numbness or tingling from the lower extremities. +2 distal pulses to lower extremities. Pending CBC. Remains in stable condition okay for discharge. Plan: - Continue DAPT therapy aspirin 81 mg daily, clopidogrel 75 mg daily - Follow-up appointment scheduled 06/12/2025 Pertinent Physical Exam At Time of Discharge Physical Exam General: Alert and oriented, Appears comfortable in no acute distress. HENT: Head: Normocephalic, atraumatic. Eyes: Conjunctiva clear, sclera anicteric. No periorbital edema. Nose: No nasal congestion or discharge. Throat: Mucous membranes moist and pink. Neck: Supple, no lymphadenopathy. No bruits. No jugular venous distension (JVD) at 45???. Pulmonary: Symmetrical chest rise, no accessory muscle use. Clear to auscultation bilaterally. No wheezes, rales, or rhonchi. No tenderness. Cardiovascular: No visible heaves, lifts, or abnormal pulsations. Regular rate and rhythm. S1 and S2 present without murmurs, rubs, or gallops. No S3 or S4. Peripheral Vascular: Pulses (radial, dorsalis pedis, posterior tibial) 2+ bilaterally and symmetrical. No edema, cyanosis, or clubbing. Capillary refill <2 seconds. Abdomen: Flat, no visible pulsations or distension. Bowel sounds normoactive in all quadrants. Soft, non-tender, no masses or hepatosplenomegaly. Extremities: No cyanosis, clubbing, or edema. Warm to touch, full range of motion. No tenderness. Neurological: Alert and oriented to person, place, and time. Normal sensation in all extremities. Skin: Warm, dry, and intact. No rashes, lesions, pallor, or cyanosis. Capillary refill <2 seconds. No diaphoresis or ecchymosis. Lab Results Labs Reviewed POCT GLUCOSE METER UNSOLICITED RESULTS - Abnormal Result Value Glucose POC 321 (*) Na (more content not included)...NormalUniversity [facility]30The patient is Moderately Stable - Low risk of patient condition declining or worsening The patient's goals for the shift include rest The clinical goals for the shift include no bleeding, comfort Problem: Pain - Adult Goal: Verbalizes/displays adequate comfort level or baseline comfort level Outcome: Progressing Problem: Safety - Adult Goal: Free from fall injury Outcome: Progressing Problem: Discharge Planning Goal: Discharge to home or other facility with appropriate resources Outcome: Progressing Problem: Chronic Conditions and Co-morbidities Goal: Patient's chronic conditions and co-morbidity symptoms are monitored and maintained or improved Outcome: ProgressingNormalUniverscleveland clinic [facility] of [facility]30The patient is Moderately Stable - Low risk of patient condition declining or worsening The patient's goals for the shift include rest, eat, comfort The clinical goals for the shift include no bleeding, vs wnl, comfort Problem: Pain - Adult Goal: Verbalizes/displays adequate comfort level or baseline comfort level Outcome: Progressing Problem: Safety - Adult Goal: Free from fall injury Outcome: Progressing Problem: Discharge Planning Goal: Discharge to home or other facility with appropriate resources Outcome: Progressing Problem: Chronic Conditions and Co-morbidities Goal: Patient's chronic conditions and co-morbidity symptoms are monitored and maintained or improved Outcome: ProgressingNoalUnitexas health hospital [facility] of [facility] BrenhamANESon 04-09-2025 ANES Attestation signed by Timmy Arriaga MD at 04/09/2025 9:41 AM Timmy Arriaga MD, MPH, [facility], [facility], [facility] Interventional Cardiology Pager Email: [email or web address] Patient: Salomón Justice Procedure Information Date/Time: 04/09/25829 Procedure: Coronary angiography (Left) Location: [facility] PHOTOGRAMMETRIC ENGINEER 3 / [facility] (Cath) Providers: Timmy Arriaga MD Clinical information reviewed: Allergies Meds Physical Exam Airway Mallampati: III TM distance: >3 FB Neck ROM: full Cardiovascular Rhythm: regular Rate: normal Pulse is weak. (-) murmur, peripheral edema, JVD Dental Pulmonary Breath sounds clear to auscultation Neurological Abdominal Anesthesia Plan ASA 3 (Moderate conscious sedation) Anesthetic plan and risks discussed with patient. Use of blood products discussed with patient who consented to blood products. Plan discussed with attending. Additional Equipment RequestsNormalUniversity of [facility] BrenhamNURSNOTEon 09-13-7653EKTDHYTMQupadc given to Faustina RN from Moni RN Any medications or safety alerts were reviewed. Any pending diagnostics and notifications were also reviewed, as well as any safety concerns or issues, abnormal labs, abnormal imagining, and abnormal assessment findings. Questions were answered. Groin site assessed at bedside by cath RN and bedside RN.Normal [facility] FoundationPOCT GLUCOSE METER UNSOLICITED RESULTSon 34-86-4691Tpumadn [Mass/Vol]321 mg/pTOcpg07-936HvyvqyjubyNewark HospitalComment on above:Order Comment: Waived Testing in the ED is performed under the ED CLIA certificate #[id number].Result Comment: [email or web address] By: #### [id number] ####[facility] (BEAKER)[address], [place] [address]IU on [id number] CLINIC Cardiology Clinic Note Chief Complaint; Patient here today for an early per his request. Patient states he has been having episodes of chest heaviness up to 2 to 3 times a day. Increased fatigue, SOB, GRIFFIN, leg swelling with itching and numbness. Patient denies palpitations/racing heart, dizziness. HPI: Salomón Justice is a 63 y.o. [...] about when he first presented to a dev manager; he was 40 years old! He saw [...] frequently 1 to 2 miles without symptoms UPDATE 03/27/2025 Salomón has been feeling worsening chest pain for the past 1-1/2 months. This occurs with rest and with exertion. He is unable to complete his daily walks without having chest pressure. He denies worsening shortness of breath. No orthopnea, no paroxysmal dyspnea, no lower extremity edema. Cardiology ROS: Review of Systems Constitutional: Positive for malaise/fatigue. Cardiovascular: Positive for chest pain, dyspnea on exertion and leg swelling (resolves by morning). Respiratory: Positive for shortness of breath. Musculoskeletal: Positive for arthritis, joint pain and [...] No family history on file. Allergies Ranolazine and Zetia [ezetimibe] Medications Current Outpatient Medications: alirocumab (Praluent Pen) 150 mg/mL pen injector, Inject 150 mg under the skin every 14 (fourteen) days. (Patient not taking: Reported on 02/07/2025), Disp: 2 mL, Rfl: 11 aspirin 81 mg chewable tablet, Chew 81 mg 2 times daily., Disp: , Rfl: clopidogrel (Plavix) 75 mg tablet, TAKE 1 TABLET BY MOUTH IN THE MORNING, Disp: 90 tablet, Rfl: 0 colchicine 0.6 mg tablet, Take 1 tablet (0.6 mg) by mouth once daily as directed., Disp: 90 tablet, Rfl: 3 dilTIAZem (Cardizem) 120 mg immediate release tablet, Take 1 tablet (120 mg) by mouth at bedtime., Disp: 90 tablet, Rfl: 3 dilTIAZem CD (Cardizem CD) 240 mg 24 hr capsule, Take 1 capsule (240 mg) by mouth in the morning., Disp: 90 capsule, Rfl: 3 ezetimibe (Zetia) 10 mg tablet, Take 1 tablet (10 mg) by mouth once daily as directed. (Patient not taking: Reported on 02/07/2025), Disp: 90 tablet, Rfl: 3 inclisiran (Leqvio) [...] for ongoing chest pain after 3 doses, (more content not included)...[facility] 09-15-8783Iuppsd-up [id number] Salomón Justice 1960 M Date Provider Department Center 03/27/2025 [facility] No family history on file Level of Service:59861 [place] OFFICE/OUTPATIENT ESTABLISHED HIGH MDM 40 [facility] 44-60-4101Qtaytf-up visit [id number] Salomón Justice 1960 Date Provider Department Center 02/07/2025 TIM[facility]CRUZ [facility] No family history on file Level of Service:07334 LA OFFICE/OUTPATIENT ESTABLISHED MOD MDM 30 [facility] 58-27-2167Hcmfmy-up visit [id number] Salomón Justice 1960 M Date Provider Department Center 08/23/2024 [facility] No family history on file Level of Service:80003 LA OFFICE/OUTPATIENT ESTABLISHED LOW MDM 20 [facility] HospitalLIPID PROFILEon 69-46-0613KENG-HDL RATIO NORM SEE [facility] CincinnatiComment on above:Result Comment: 3.3 - 4.4 LOW RISK 4.4 - 7.1 AVERAGE RISK 7.1 - 11.0 MODERATE RISK >11.0 HIGH RISK Performed By: #### LIVER, LIPID #### [facility] [address] [place] [address] Dr. Anderson PowersCholesterol [Mass/Vol]191 mg/dLNormal<=200The [facility] Comment on above:Performed By: #### LIVER, LIPID #### [facility] [address] [address] [address] Anderson PowersCholesterol in HDL [Mass/Vol]34 mg/dLCritically yjo94-47Han [facility] HospitalComment on above:Performed By: #### LIVER, LIPID #### [facility] [address] [address] [address] Anderson PowersCholesterol in LDL [Mass/Vol]107.8 mg/dLNoWyandot Memorial HospitalComment on above:Performed By: #### LIVER, LIPID #### [facility] [address] [place] [address] Dr. Anderson Patrickesterdebra.total/Cholesterol in HDL [Mass ratio]5.6 {ratio} NormalThe [facility] HospitalComment on above:Performed By: #### LIVER, LIPID #### [facility] [address] [place] [address] Dr. Anderson Reyes NORMAL> or = 60 mg/dl - LOW CARDIOVASCULAR RISK <40 mg/dl - HIGH CARDIOVASCULAR RISKNoWyandot Memorial HospitalComment on above:Performed By: #### LIVER, LIPID #### [facility] [address] [place] [address] Dr. Anderson Velez CALC NORMALSEE BELOWNoWyandot Memorial HospitalComment on above:Result Comment: <100 mg/dl OPTIMAL 100 - 129 mg/dl NEAR OR ABOVE OPTIMAL 130 - 159 mg/dl BORDERLINE HIGH 160 - 189 mg/dl HIGH >190 mg/dl VERY HIGH Performed By: #### LIVER, LIPID #### [facility] [address] [place] [address] Dr. Anderson PowersTriglyceride [Mass/Vol]246 mg/dLCritically high<=150The [facility] HospitalComment on above:Performed By: #### LIVER, LIPID #### [facility] [address] [place] [address] Dr. Anderson PowersVLDL CALC49.2 mg/dLNoWyandot Memorial HospitalComment on above: Performed By: #### LIVER, LIPID #### [facility] [address] [address] [address] Anderson Gay PROFILEon 18-88-7041Phgngfu [Mass/Vol]4.0 g/dLNormal3.4-5.0 [facility] Centerment on above:Performed By: #### LIVER, LIPID #### [facility] [address] [place] [address] Dr. Anderson PowersAlbumin/Globulin [Mass ratio]1.5 {ratio}NormalThe [facility] on above:Performed By: #### LIVER, LIPID #### [facility] [address] [place] [address] Dr. Anderson Garcia [Catalytic activity/Vol]124 U/LCritically lcev64-770Ins [facility] HospitalComment on above:Performed By: #### LIVER, LIPID #### [facility] [address] [place] [address] Dr. Anderson Olvera [Catalytic activity/Vol]55 U/MKfqdrn96-31Joq [facility] Hospitalment on above:Performed By: #### LIVER, LIPID #### [facility] [address] [place] [address] Dr. Anderson Diallo [Catalytic activity/Vol]21 U/KKnbbcw17-52Xyc [facility] on above:Performed By: #### LIVER, LIPID #### [facility] [address] [place] [address] Dr. Anderson Bob, CONJUGATED0.1 mg/dLNormal0.0-0.2[facility] Comment on above:Performed By: #### LIVER, LIPID #### [facility] [address] [place] [address] Dr. Anderson Agustinirubin [Mass/Vol]0.5 mg/dLNormal0.2-1.0[facility] Comment on above:Performed By: #### LIVER, LIPID #### [facility] [address] [place] [address] Dr. Anderson PowersGlobulin (S) [Mass/Vol]2.7 g/dLNormPike Community HospitalComment on above:Performed By: #### LIVER, LIPID #### [facility] [address] [place] [address] Dr. Anderson PowersProtein [Mass/Vol]6.7 g/dLNormal6.4-8.2[facility] Comment on above:Performed By: #### LIVER, LIPID #### [facility] [address] [place] [address] Dr. Anderson PowersXR CSPINE MIN 4 VIEWSon [id number] CSPINE MIN 4 VIEWS EXAMINATION: XR CSPINE [...] Electronically authenticated by: CHRISTA BARRAGAN Date: 2022-10-22 11:08[facility] NorthRegistrationon 07-37-4039Pjdtxnnziilw [id number]#1.00CD:[address] [place] [address] AUTO DIFFon [id number] #0.0 103/ulNormal0.0-0.1[facility] HospitalComment on above:Performed By: #### CBC #### [facility] [address] [place] [address] Dr. Anderson PowersBasophils/100 WBC (Bld)0.7 %Normal0.2-2.0[facility] Comment on above:Performed By: #### CBC #### [facility] [address] [place] [address] Dr. Anderson Ramachandran #0.1 103/ulNormal0.0-0.7ThEast [facility] Regional HospitalComment on above: Performed By: #### CBC #### [facility] [address] [place] [address] Dr. Anderson Mosquedaosinophils/100 WBC (Bld)1.6 %Normal0.9-7.0[facility] Comment on above:Performed By: #### CBC #### [facility] [address] [place] [address] Dr. Anderson Mosquedarythrocyte distribution width (RBC) [Ratio]13.2 %Vepagq67.0-15.0 The [facility] HospitalComment on above:Performed By: #### CBC #### [facility] [address] [place] [address] Dr. Anderson PowersHematocrit (Bld) [Volume fraction]47.3 %Eqfimh26.0-54.0The [facility] HospitalComment on above:Performed By: #### CBC #### [facility] [address] [place] [address] Dr. Anderson PowersHemoglobin (Bld) [Mass/Vol]16.2 g/cFNesrhl44.0-18.0The [facility] HospitalComment on above:Performed By: #### CBC #### [facility] [address] [place] [address] Dr. Anderson PowersIG #0.03 10e3/ulNormal0.00-0.03The [facility] HospitalComment on above:Performed By: #### CBC #### [facility] [address] [place] [address] Dr. Anderson PowersIG %0.5 %Normal0.0-0.5The [facility] HospitalComment on above: Performed By: #### CBC #### [facility] [address] [place] [address] Dr. Anderson ConnerMPH #1.4 103/ulNormal1.2-3.8The [facility] HospitalComment on above:Performed By: #### CBC #### [facility] [address] [place] [address] Dr. Anderson Connermphocytes/100 WBC (Bld)24.1 %Qslnai82.5-60.0The [facility] HospitalComment on above:Performed By: #### CBC #### [facility] [address] [place] [address] Dr. Anderson Sanchez DIFF REQNONormalThe [facility] HospitalComment on above: Performed By: #### CBC #### [facility] [address] [place] [address] Dr. Anderson Nielson (RBC) [Entitic mass]29.4 xsOofxvj20.9-34.0The [facility] HospitalComment on above:Performed By: #### CBC #### [facility] [address] [place] [address] Dr. Anderson Nielson (RBC) [Mass/Vol]34.2 g/qASvipzb86.9-35.2The [facility] HospitalComment on above:Performed By: #### CBC #### [facility] [address] [place] [address] Dr. Anderson Nielson (RBC) [Entitic vol]85.8 kDGlnhgm11.0-94.0The [facility] HospitalComment on above:Performed By: #### CBC #### [facility] [address] [place] [address] Dr. Anderson Hedrick #0.5 103/ulNormal0.3-0.8The [facility] HospitalComment on above:Performed By: #### CBC #### [facility] [address] [place] [address] Dr. Anderson Mcallisterocytes/100 WBC (Bld)8.9 %Normal1.7-12.0[facility] Comment on above:Performed By: #### CBC #### [facility] [address] [place] [address] Dr. Anderson Marquez #3.6 103/ulNormal1.4-6.5The [facility] HospitalComment on above:Performed By: #### CBC #### [facility] [address] [place] [address] Dr. Anderson Verdugoutrophils/100 WBC (Bld)64.2 %Lfbiuh43.0-75.0The [facility] HospitalComment on above:Performed By: #### CBC #### [facility] [address] [address] [address] Anderson PowersPlatelet mean volume (Bld) [Entitic vol]10.6 fLNormal9.5-13.5The [facility] on above:Performed By: #### CBC #### [facility] [address] [address] [address] Anderson PowersPLT148 103/ulCritically htp619-530Oen [facility] HospitalCominsight surgical hospital on above:Performed By: #### CBC #### [facility] [address] [address] [address] Anderson PowersRBC5.51 106/ulNormal4.70-6.10The [facility] on above:Performed By: #### CBC #### [facility] [address] [place] [address] Dr. Anderson PowersWBC5.6 103/ulNormal4.0-11.0The [facility] on above: Performed By: #### CBC #### [facility] [address] [place] [address] Dr. Anderson PowersGLYCOHEMOGLOBIN A1Con 87-52-6280HHP RECOMMENDATIONSEE BELOWNormal The [facility] on above:Result Comment: ADA RECOMMENDED LIMIT 4.0 - 6.0 ADA THERAPEUTIC TARGET < 7.0 ACTION SUGGESTED > 7.0Performed By: #### A1C #### [facility] [address] [place] [address] Dr. Anderson PowersGlucose [Mass/Vol]194 mg/dLNormalThe [facility] on above:Performed By: #### A1C #### [facility] [address] [address] [address] Anderson PowersHbA1c (Bld) [Mass fraction]8.4 %Critically high4.5-6.2The [facility] on above:Performed By: #### A1C #### [facility] [address] [place] [address] Dr. Anderson PowersMICROALBUMIN, RAND URon 29-27-2627mWFY<1.3Normal<=30.0The [facility] HospitalComment on above:Performed By: #### MALBR #### [facility] [address] [place] [address] Dr. Anderson Cannon 14(COMP METB)on 41-79-3771Zjalack [Mass/Vol]3.9 g/dLNormal 3.4-5.0The [facility] HospitalComment on above:Performed By: #### CMP #### [facility] [address] [place] [address] Dr. Anderson PowersAlbumin/Globulin [Mass ratio]1.4 {ratio}NormalThe [facility] HospitalComment on above:Performed By: #### CMP #### [facility] [address] [place] [address] Dr. Anderson LuiP [Catalytic activity/Vol]108 U/AVjglsi77-339Hux [facility] HospitalComment on above:Performed By: #### CMP #### [facility] [address] [place] [address] Dr. Anderson Olvera [Catalytic activity/Vol]49 U/XPxychn06-97Zzf [facility] HospitalComment on above:Performed By: #### CMP #### [facility] [address] [place] [address] Dr. Anderson Gomez gap [Moles/Vol]10.6 mmol/LNormalThe [facility] Comment on above:Performed By: #### CMP #### [facility] [address] [place] [address] Dr. Anderson PowersAST [Catalytic activity/Vol]18 U/SLpoteh07-02Hvl [facility] HospitalComment on above:Performed By: #### CMP #### [facility] [address] [place] [address] Dr. Anderson PowersBilirubin [Mass/Vol]0.4 mg/dLNormal0.2-1.0The [facility] Comment on above:Performed By: #### CMP #### [facility] [address] [place] [address] Dr. Anderson PowersCalcium [Mass/Vol]9.0 mg/dLNormal8.5-10.1The [facility] Comment on above:Performed By: #### CMP #### [facility] [address] [address] [address] Anderson PowersChloride [Moles/Vol]102 mmol/DNdqnyd78-688Yij [facility] Comment on above:Performed By: #### CMP #### [facility] [address] [address] [address] Anderson PowersCO2 [Moles/Vol]31.0 mmol/ZSyrlfm33.0-32.0The [facility] Comment on above:Performed By: #### CMP #### [facility] [address] [place] [address] Dr. Anderson PowersCreatinine [Mass/Vol]0.98 mg/dLNormal0.70-1.30The [facility] HospitalComment on above:Performed By: #### CMP #### [facility] [address] [place] [address] Dr. Anderson MosquedaGFR-AF IVORIAN>60Normal>=60The [facility] HospitalComment on above:Performed By: #### CMP #### [facility] [address] [place] [address] Dr. Anderson MosquedaGFR-NON AF IVORIAN>60Normal>=60The [facility] HospitalComment on above:Performed By: #### CMP #### [facility] [address] [address] [address] Anderson PowersGlobulin (S) [Mass/Vol]2.8 g/dLNormalThe [facility] HospitalComment on above:Performed By: #### CMP #### [facility] [address] [address] [address] Anderson PowersGlucose [Mass/Vol]261 mg/dLCritically idmj02-132Xua [facility] HospitalComment on above:Performed By: #### CMP #### [facility] [address] [place] [address] Dr. Anderson PowersPotassium [Moles/Vol]4.6 mmol/LNormal3.5-5.1The [facility] Comment on above:Performed By: #### CMP #### [facility] [address] [address] [address] Anderson PowersProtein [Mass/Vol]6.7 g/dLNormal6.4-8.2The [facility] Comment on above:Performed By: #### CMP #### [facility] [address] [address] [address] Anderson PowersSodium [Moles/Vol]139 mmol/OFmdvvf971-340Lrx [facility] Comment on above:Performed By: #### CMP #### [facility] [address] [address] [address] Anderson PowersUrea nitrogen [Mass/Vol]19.0 mg/dLCritically high7.0-18.0[facility] HospitalComment on above:Performed By: #### CMP #### [facility] [address] [address] [address] Anderson Cruz nitrogen/Creatinine [Mass ratio]19.4 mg/mgNormalThe [facility] HospitalComment on above:Performed By: #### CMP #### [facility] [address] [address] [address] Anderson Silver 06-04-2626Yrltlea [id number]#1.00CD:127[facility] HospitalCREATININE BLOODon 85-13-5756Rlafoyytpx [Mass/Vol]0.85 mg/dLNormal 0.70-1.30The [facility] FoundationComment on above:Order Comment: No: Do not add to previous drawPerformed By: #### 99026 #### [facility] [address] [place] [address], USAGFR/1.73 sq M.predicted among blacks MDRD (S/P/Bld) [Vol rate/Area]mL/min/{1.73_m2}Normal>60[facility] Comment on above:Order Comment: No: Do not add to previous drawPerformed By: #### 45255 #### [facility] [address] [place] [address], USAGFR/1.73 sq M.predicted among non-blacks MDRD (S/P/Bld) [Vol rate/Area]mL/min/{1.73_m2}Normal>60[facility] Comment on above:Order Comment: No: Do not add to previous drawPerformed By: #### 89024 #### [facility] [address] [place] [address], USACardiovascular Lab Reporton [id number] Lab ReportUnCorey Hospital Patient Name: [facility] Salomón Garner MR #: [id number] Department of Physician: Mario Fisher M.D. Division of Service Date: 09/16/2021 Cardiology Birthdate: 1960 Adult Cardiovascular Room #: 4CD [id number] [address] Cardiovascular Laboratory Report CLINICAL PRESENTATION: The patient [...] the REDUCE-IT trial. 6. Outpatient followup with [facility]. 7. Referral to cardiac rehabilitation. PROCEDURES: [...] ultrasound guidance and micropuncture access technique, a 6-Beninese sheath placed in right common femoral artery. Limited femoral angiogram was performed, which showed adequate placement of right common femoral artery. Next, coronary bypass graft angiogram was performed. All catheter exchanges were made over the J-tip guidewire. A 6-Beninese JL4 was engaged to the left main coronary artery. A 6-Beninese JR4 was engaged in right coronary artery. A 6-Beninese BONI catheter was engaged to the left [...] was maintained greater than 200 seconds. A 6-Beninese JR4 guide was engaged to right coronary [...] for post dilations. Th (more content not included)...NormalThe [facility] Clinic FoundationAPTTon 60-77-8870iGXT Coag (Bld) [Time]30.9 uWffemj14.0-35.0The [facility] FoundationComment on above:Order Comment: evaluate for AspirationResult Comment: ALL RESULTS MUST BE INTERPRETED WITH RESPECT TO BLOOD DRAWING ARTIFACT OR DILUTION ERROR OF ANTICOAGULANT AT THE TIME OF SAMPLING. THE APTT SHOULD NOT BE USED TO MONITOR UNFRACTIONATED HEPARIN THERAPY, THIS LABORATORY NO LONGER HAS AN ESTABLISHED THERAPEUTIC RANGE BASED ON THE APTT. IT IS RECOMMENDED THAT THE UFH - HEPARIN ASSAY (ANTI-XA ACTIVITY) BE USED FOR THIS PURPOSE.Performed By: #### 89471, 52637 ####[facility] [facility] [place] [address], [facility] BASIC METABOLIC PANELon 90-46-2543Ocurgtp [Mass/Vol]8.8 mg/dLNormal8.6-10.3The [facility] FoundationComment on above:Order Comment: evaluate for AspirationPerformed By: #### 89967, 80625, 84796, 84852, 06498 ####[facility] [facility] [place] [address], [facility] HOSPITALChloride [Moles/Vol]108 mmol/IUzcz75-864Thh [facility] FoundationComment on above:Order Comment: evaluate for AspirationPerformed By: #### 12459, 50140, 70750, 86876, 69784 ####[facility] [place] [address], USACO2 [Moles/Vol]24 mmol/DSfsdju20-17Uhq [facility] FoundationComment on above:Order Comment: evaluate for Aspiration Performed By: #### 45699, 06881, 44599, 14328, 74908 ####[facility] [place] [address], USACreatinine [Mass/Vol]0.86 mg/dLNormal0.70-1.30The [facility] FoundationComment on above: Order Comment: evaluate for AspirationPerformed By: #### 36790, 62004, 02518, 67448, 21445 ####[facility] [place] [address], USAGFR/1.73 sq M.predicted among blacks MDRD (S/P/Bld) [Vol rate/Area] mL/min/{1.73_m2}Normal>60The [facility] FoundationComment on above:Order Comment: evaluate for AspirationPerformed By: #### 80728, 86844, 74270, 17017, 13666 ####[facility] [place] [address], USAGFR/1.73 sq M.predicted among non-blacks MDRD (S/P/Bld) [Vol rate/Area]mL/min/{1.73_m2}Normal>60[facility] Comment on above:Order Comment: evaluate for AspirationPerformed By: #### 72605, 57032, 67511, 49618, 25486 ####[facility] [place] [address], USAGlucose [Mass/Vol]142 mg/nSHhzq90-560Gdd [facility] FoundationComment on above:Order Comment: evaluate for Aspiration Performed By: #### 18714, 79476, 79156, 30857, 76247 ####[facility] [place] [address], [facility]OSPITALPotassium [Moles/Vol]3.7 mmol/LNormal3.5-5.1The [facility] FoundationComment on above:Order Comment: evaluate for AspirationPerformed By: #### 27105, 01292, 28941, 77536, 76127 ####[facility] [place] [address], USASodium [Moles/Vol]140 mmol/AQujqhu320-107Shk [facility] FoundationComment on above:Order Comment: evaluate for AspirationPerformed By: #### 35190, 64284, 93998, 87315, 27111 ####[facility] [facility] [place] [address], USAUrea nitrogen [Mass/Vol]13 mg/dL Normal7-25The [facility] FoundationComment on above:Order Comment: evaluate for AspirationPerformed By: #### 78069, 68558, 91020, 61841, 03064 ####[facility] [facility] [place] [address], [facility] BNP (B-TYPE NATRIURETIC PEPTIDE)on 36-05-6506Eukfcclnzyo peptide B (Bld) [Mass/Vol]45 pg/mLNormal0-100The [facility] FoundationComment on above:Order Comment: evaluate for AspirationResult Comment: Given the appropriate clinical setting a BNP result of >100 pg/mL indicates congestive heart failure.Performed By: #### 66914 ####[facility] [facility] [place] [address], [facility] HOSPITALCBC COMPLETE BLOOD COUNTon 10-06-8522Ozjscuwuqkr distribution width (RBC) [Ratio]14.2 %Normal 11.5-15.0The [facility] FoundationComment on above:Order Comment: No: Do not add to previous drawPerformed By: #### 91581 #### [facility] [address] [place] [address], USAHematocrit (Bld) [Volume fraction]44.0 %Oomyfw70.0-50.0The [facility] FoundationComment on above:Order Comment: No: Do not add to previous drawPerformed By: #### 94776 #### [facility] [address] [place] [address], USAHemoglobin (Bld) [Mass/Vol]15.4 g/gPBvfkit09.0-17.0The [facility] FoundationComment on above:Order Comment: No: Do not add to previous drawPerformed By: #### 90556 #### [facility] [address] [place] [address], [facility] HOSPITALMCH (RBC) [Entitic mass]29.2 tvAwgrdc89.0-33.0The [facility] FoundationComment on above:Order Comment: No: Do not add to previous drawPerformed By: #### 70165 #### [facility] [address] [facility] [place] [address], ZUNI HOSPITALMCHC (RBC) [Mass/Vol]35.0 g/aMJxjkcu28.0-35.0The [facility] FoundationComment on above:Order Comment: No: Do not add to previous drawPerformed By: #### 72671 #### [facility] [address] [facility] [place] [address], [facility] HOSPITALMCV (RBC) [Entitic vol]83.3 uQIplsjw28.0-98.0The [facility] FoundationComment on above:Order Comment: No: Do not add to previous drawPerformed By: #### 57551 #### [facility] [address] [place] [address], USANucleated RBC/100 WBC (Bld) [Ratio]0 %Normal0-0The [facility] FoundationComment on above:Order Comment: No: Do not add to previous drawPerformed By: #### 09328 #### [facility] [address] [place] [address], USAPLAT HTO375 10*3/tQNft544-260Jcf [facility] FoundationComment on above:Order Comment: No: Do not add to previous draw Performed By: #### 90341 #### [facility] [address] [place] [address], USARBC (Bld) [#/Vol]5.28 10*6/uLNormal4.20-5.70The [facility] FoundationComment on above:Order Comment: No: Do not add to previous drawPerformed By: #### 87321 #### [facility] [address] [place] [address], USAWBC (Bld) [#/Vol]4.81 10*3/uLNormal4.00-10.60The [facility] FoundationComment on above:Order Comment: No: Do not add to previous drawPerformed By: #### 69994 #### [facility] [address] [place] [address], USALIPID PROFILEon 53-97-0406Arvthcvmrmn [Mass/Vol]193 mg/dL Nwupbe072-579Udg [facility] FoundationComment on above:Order Comment: No: Do not add to previous drawResult Comment: CHOLESTEROL REFERENCE RANGE: 20 YEARS AND OLDER CARDIOVASCULAR RISK Less than 200 mg/dl Low Risk 200 to 239 mg/dl Borderline Risk 240 mg/dl and greater High RiskPerformed By: #### 77344, 77462, 98986, 37742, 57938 #### [facility] [address] [place] [address], USACholesterol in HDL [Mass/Vol]30 mg/vPUqfwrt32-13Pnd [facility] FoundationComment on above:Order Comment: No: Do not add to previous drawResult Comment: Slight variation in normal range could be due to gender and/or age. HDL CHOLESTEROL REFERENCE RANGE: 20 years and older Cardiovascular Risk > or =60 mg/dL Desirable 40 TO 59 mg/dL Low Risk <40 mg/dL High RiskPerformed By: #### 10711, 62866, 17575, 18385, 90126 #### [facility] [address] [place] [address], USACholesterol in LDL [Mass/Vol]121 mg/dLNormal0-130The [facility] FoundationComment on above:Order Comment: No: Do not add to previous drawResult Comment: LDL IS A CALCULATION LDL IS ONLY VALID IF THE TRIG IS LESS THAN 400.Performed By: #### 00508, 10433, 93955, 13242, 92747 #### [facility] [address] [facility] [place] [address], USACholesterol.total/Cholesterol in HDL [Mass ratio]6.4 {ratio}High.0-4.5The [facility] FoundationComment on above:Order Comment: No: Do not add to previous drawPerformed By: #### 96214, 34087, 95281, 53685, 32289 #### [facility] [address] [facility] [place] [address], USANON-HDL HHVUQGVIERL320 mg/dLNormalThe [facility] FoundationComment on above:Order Comment: No: Do not add to previous draw Performed By: #### 77936, 46242, 50847, 23710, 67289 #### [facility] [address] [place] [address], USATriglyceride [Mass/Vol]208 mg/hSGaya52-687Mtb [facility] FoundationComment on above:Order Comment: No: Do not add to previous drawResult Comment: TRIGLYCERIDE REFERENCE RANGE: 20 YEARS AND OLDER CARDIOVASCULAR RISK LESS THAN 150 mg/dl LOW RISK 150 TO 199 mg/dl BORDERLINE RISK 200 mg/dl AND GREATER HIGH RISKPerformed By: #### 96183, 52771, 97544, 33408, 92279 #### [facility] [address] [place] [address], USAVLDL CHOL42 mg/dLHigh0-40The [facility] FoundationComment on above:Order Comment: No: Do not add to previous drawPerformed By: #### 01554, 78978, 80041, 18692, 90698 #### [facility] [address] [place] [address], USAMAGNESIUM BLOODon 24-52-5226Xjwvxtsod [Mass/Vol]2.2 mg/dL Normal1.9-2.7The [facility] FoundationComment on above:Order Comment: No: Do not add to previous drawPerformed By: #### 17908, 56529, 81076, 11039, 51363 #### [facility] [address] [place] [address], USAMagnesium [Mass/Vol]2.3 mg/dLNormal1.9-2.7The [facility] FoundationComment on above:Order Comment: if not done in ED No: Do not add to previous drawPerformed By: #### 96099, 15018 #### [facility] [address] [place] [address], USAPHOSPHORUS BLOODon 70-30-6697Vehntifpn [Mass/Vol]3.0 mg/dL Normal2.5-5.0The [facility] FoundationComment on above:Order Comment: No: Do not add to previous drawPerformed By: #### 61255, 58969, 34065, 90667, 11699 #### [facility] [address] [facility] [place] [address], USAPOC SARS COV2 ANTIGEN NEGATIVEon 07-56-9294HQL SARS COV2 ANTIGEN NEGNegativeNormalNEGATIVEThe [facility] FoundationComment on above:Result Comment: Negative results should be treated as presumptive and [...] antigen from SARS-CoV-2 in direct nasopharyngeal swab (HYDRAULIC PLUMBER) specimens from individuals who are suspected of [...] Waiver, Certificate of Compliance, or Certificate of Accreditation.Performed By: #### 38770 #### [address] [place] [address], [facility]I HOSPITALPROTHROMBIN TIMEon [id number] Coag (PPP) [Relative time] 1.02 {INR}Normal0.91-1.16The [facility] Clinic FoundationComment on above:Order Comment: evaluate for AspirationResult Comment: ACCCP RECOMMENDED INR FOR WARFARIN THERAPY ------- CONDITION INR PROPHYLAXIS OF VENOUS THROMBOSIS 2-3 (HIGH-RISK SURGERY) TREATMENT OF VENOUS THROMBOSIS 2-3 TREATMENT OF PULMONARY EMBOLISM 2-3 PREVENTION OF SYSTEMIC EMBOLISM: 2-3 ACUTE MYOCARDIAL INFARCTION TISSUE HEART VALVES VALVULAR HEART DISEASE ATRIAL FIBRILLATION RECURRENT SYSTEMIC EMBOLISM MECHANICAL HEART VALVE 2.5-3.5 FROM: ORAL ANTICOAGULANTS. MECHANISM OF ACTION, CLINICAL EFFECTIVENESS, AND OPTIMAL THERAPEUTIC RANGE. CHEST 1995;108:231S-246S.Performed By: #### 43274, 74843 ####[facility] [place] [address], USAPT Coag (PPP) [Time]13.4 s Gvyaeo62.3-14.8The [facility] FoundationComment on above:Order Comment: evaluate for AspirationResult Comment: ALL RESULTS MUST BE INTERPRETED WITH RESPECT TO BLOOD DRAWING ARTIFACT OR DILUTION ERROR OF ANTICOAGULANT AT THE TIME OF SAMPLING.Performed By: #### 43478, 10499 ####[facility] [place] [address], USATROPONIN-Ion 66-72-9259Bknnzgkb I.cardiac [Mass/Vol]0.00 ng/mL Normal0.00-0.04The [facility] FoundationComment on above:Order Comment: No: Do not add to previous drawResult Comment: REFERENCE RANGES: 0.00 - 0.04 ng/ml NORMAL 0.05 - 0.50 ng/ml INDETERMINATE > 0.50 ng/ml CONSISTENT WITH AN M.I.Performed By: #### 39724, 72400, 27523, 11509, 42439 #### [facility] [address] [place] [address], USATroponin I.cardiac [Mass/Vol]0.00 ng/mLNormal0.00-0.04The [facility] FoundationComment on above:Order Comment: No: Do not add to previous drawResult Comment: REFERENCE RANGES: 0.00 - 0.04 ng/ml NORMAL 0.05 - 0.50 ng/ml INDETERMINATE > 0.50 ng/ml CONSISTENT WITH AN M.I.Performed By: #### 14858, 00792 #### [facility] [address] [place] [address], USABASIC METABOLIC PANELon 42-89-0259Axozlsb [Mass/Vol]9.3 mg/dLNormal8.6-10.3The [facility] FoundationComment on above: Performed By: #### 41560, 41883 ####[facility] [place] [address], USAChloride [Moles/Vol]106 mmol/TIwkwgu08-617Bgc [facility] FoundationComment on above:Performed By: #### 30556, 62704 ####[facility] [place] [address], USACO2 [Moles/Vol]24 mmol/QDemhje65-41Gga [facility] FoundationComment on above:Performed By: #### 33007, 07542 ####[facility] [place] [address], USACreatinine [Mass/Vol]0.96 mg/dLNormal0.70-1.30The [facility] FoundationComment on above: Performed By: #### 76227, 35416 ####[facility] [place] [address], USAGFR/1.73 sq M.predicted among blacks MDRD (S/P/Bld) [Vol rate/Area]mL/min/{1.73_m2}Normal>60The [facility] FoundationComment on above:Performed By: #### 36239, 87296 ####[facility] [place] [address], USAGFR/1.73 sq M.predicted among non-blacks MDRD (S/P/Bld) [Vol rate/Area]mL/min/{1.73_m2} Normal>60The [facility] FoundationComment on above:Performed By: #### 16899, 68122 ####[facility] [place] [address], USAGlucose [Mass/Vol]143 mg/sXLdnk54-524Rpl [facility] FoundationComment on above:Performed By: #### 24981, 48975 ####[facility] [place] [address], [place] Potassium [Moles/Vol]4.3 mmol/LNormal3.5-5.1The [facility] FoundationComment on above:Performed By: #### 54952, 58593 ####[address] [place] [address], ZUNI HOSPITALSodium [Moles/Vol]138 mmol/FCclphg021-341Pmr [facility] FoundationComment on above: Performed By: #### 76170, 38870 ####[facility] [facility] [place] [address], USAUrea nitrogen [Mass/Vol]13 mg/dLNormal7-25The [facility] FoundationComment on above:Performed By: #### 37994, 12478 ####[address] [place] [address], [facility] HOSPITALCBC W/DIFFon 33-48-6731HDJ IMM GRANS0.0 10*3/uLNormal0.0-0.2The [facility] FoundationComment on above:Performed By: #### 75424 ####[address] [place] [address], [place] ABS NEUTROPHILS3.8 10*3/uLNormal1.6-7.6[facility] Comment on above:Performed By: #### 66262 ####[address] [place] [address], [facility] HOSPITALBasophils (Bld) [#/Vol]0.1 10*3/uL Normal0.0-0.2The [facility] Clinic FoundationComment on above:Performed By: #### 25319 ####[address] [place] [address], Z[facility]I HOSPITALBasophils/100 WBC (Bld)0.8 %Normal0.0-1.0The [facility] Clinic FoundationComment on above:Performed By: #### 92205 ####[address] [place] [address], ZUNI HOSPITALEosinophils (Bld) [#/Vol] 0.1 10*3/uLNormal0.0-0.5The [facility] Clinic FoundationComment on above: Performed By: #### 84015 ####[address] [place] [address], ZUNI HOSPITALEosinophils/100 WBC (Bld)1.5 %Normal0.0-6.0The [facility] Clinic FoundationComment on above:Performed By: #### 16676 ####[address] [place] [address], [facility] Erythrocyte distribution width (RBC) [Ratio]14.0 %Qwelkt73.5-15.0The [facility] FoundationComment on above:Performed By: #### 30546 ####[address] [place] [address], ZUNI HOSPITALHematocrit (Bld) [Volume fraction]45.1 %Ixsmgs86.0-50.0The [facility] FoundationComment on above:Performed By: #### 37504 ####[address] [place] [address], ZUNI HOSPITALHemoglobin (Bld) [Mass/Vol]15.4 g/qWLyqisd06.0-17.0The [facility] FoundationComment on above: Performed By: #### 58224 ####[address] [place] [address], ZUNI HOSPITALIMMATURE GRANS0.5 %Normal0.0-1.0The [facility] FoundationComment on above:Performed By: #### 04247 ####[address] [place] [address], ZUNI HOSPITALLymphocytes (Bld) [#/Vol]1.5 10*3/uLNormal1.2-4.0The [facility] FoundationComment on above:Performed By: #### 60490 ####[facility] [facility] [place] [address], ZUNI HOSPITALLymphocytes/100 WBC (Bld)24.6 %Normal 20.0-45.0The [facility] FoundationComment on above:Performed By: #### 95417 ####[facility] [facility] [place] [address], [facility] (RBC) [Entitic mass]29.0 hfFdopyy95.0-33.0The [facility] FoundationComment on above:Performed By: #### 75193 ####[facility] [facility] [place] [address], ZUNI HOSPITALMCHC (RBC) [Mass/Vol]34.1 g/dSTqkeri40.0-35.0The [facility] FoundationComment on above: Performed By: #### 29598 ####[facility] [facility] [place] [address], Z[facility]I HOSPITALMCV (RBC) [Entitic vol]84.9 wTPmwnsf51.0-98.0The [facility] FoundationComment on above:Performed By: #### 98184 ####[facility] [facility] [place] [address], [facility] Monocytes (Bld) [#/Vol]0.6 10*3/uLNormal0.1-1.0The [facility] FoundationComment on above:Performed By: #### 32805 ####[facility] [facility] [place] [address], [facility]I HOSPITALMONOS9.2 %Normal5.0-12.0The [facility] FoundationComment on above:Performed By: #### 08466 ####[facility] [place] [address].[place] [address], [facility] Neutrophils/100 WBC (Bld)63.4 %Gekrba54.0-72.0The [facility] FoundationComment on above:Performed By: #### 92360 ####[facility] [facility] [place] [address], ZUNI HOSPITALNucleated RBC/100 WBC (Bld) [Ratio]0 %Normal0-0The [facility] FoundationComment on above: Performed By: #### 05901 ####[facility] [facility] [place] [address], USAPLAT XXU115 10*3/kGIzthvb467-959Bzt [facility] FoundationComment on above:Performed By: #### 78531 ####[facility] [facility] [place] [address], ZUNI HOSPITALRBC (Bld) [#/Vol] 5.31 10*6/uLNormal4.20-5.70The [facility] FoundationComment on above:Performed By: #### 37454 ####[facility] [facility] [place] [address], ZUNI HOSPITALWBC (Bld) [#/Vol]6.06 10*3/uLNormal4.00-10.60 The [facility] FoundationComment on above:Performed By: #### 65889 ####[facility] [facility] [place] [address], [facility] PORTABLE CHEST 1 VIEWon 30-18-9098QPFGOPDK CHEST 1 VIEWUnNew[facility] Department of Radiology [address] [place] [id number] Patient Name: SALOMÓN JUSTICE : 1960 Sex: M Age: Race: White Pt. Location: [facility] Patient Status: E Ordered Date: [...] clinically. Electronically signed: Alex Quintana. Transcribed by: [email or web address], User Resident: ALEX QUINTANA Electronically Signed by: ALEX QUINTANA @ 09/15/2021 01:45 PM I personally read this/these film(s) with this residentSelect Medical Specialty Hospital - CincinnatiComment on above:Order Comment: evaluate for Aspiration TROPONIN-Ion 53-26-5523Xdmpjfgt I.cardiac [Mass/Vol]0.00 ng/mLNormal0.00-0.04The [facility] Clinic FoundationComment on above:Result Comment: REFERENCE RANGES: 0.00 - 0.04 ng/ml NORMAL 0.05 - 0.50 ng/ml INDETERMINATE > 0.50 ng/ml CONSISTENT WITH AN M.I.Performed By: #### 00118, 50013 ####[facility] [place] [address], [facility] Encounters Encounter DateEncounter TypeCare ProviderFacilityStart: 06-12-2025 End: 33-32-2326dkywowxppsJCMEUC Medical Centertart: 08-17-8676Mxqtyjsbgy and management of inpatientEHAB [facility] Hospitaltart: 18-16-8751rqqnpmaxygAVJO [facility] Hospitaltart: 04-09-2025 End: 21-16-5148Qhkqjpddph and management of inpatientEHAB [facility] Hospitaltart: 03-27-2025 End: 00-02-3627xspxwjjttfDDPPUC Medical Centertart: 02-07-2025 End: 67-67-8191kgfapgmfexZIOXUC Medical Centertart: 08-23-2024 End: 54-34-1360naqtnjzrezNKCRParma Community General Hospitaltart: 10-22-2022 End: 27-59-9387dtexyftbzbZX EHAB ELTAHAWYFacility:O8Jxuaj: 07-07-2022 End: 68-78-4677dthmjmjxzyBU [facility] SALEMFacility:O3Gpqdo: 05-24-2022 End: 32-46-0173ppjyvxshmjLpllvuo MABSCOTTFacility:[facility]upational Health and WellnessStart: 09-15-2021 End: 97-53-4780rawlvufbadYYJMWXOW SELFFacility:[facility] Procedures DateProcedureProcedure DetailPerforming ClinicianStart: 73-17-0596MXD screening DR TIMMY WILCOXYComment on above:Performed By: #### PSAD #### [facility] [address] [place] [address] Dr. Anderson Martinez DatePayer CategoryPayerPolicy [id number] Health [id number] Progress note 06-12-2025 Note Date & IlkkKlgvNbmkvvdd18-18-3302 [facility] Cardiology Clinic Note Chief Complaint; Patient here today for a follow up S/P cardiac cath. Patient state he could be better, I'm just wore out. Patient complains of left sided chest pain at rest with burning, fatigue, leg swelling, dizziness/lightheaded, Patient denies SOB/GRIFFIN, dizziness/lightheaded, palpitations/racing heart, bruising/bleeding. HPI: Salomón Justice is a 63 y.o. [...] about when he first presented to a dev manager; he was 40 years old! He saw [...] frequently 1 to 2 miles without symptoms UPDATE 03/27/2025 Salomón has been feeling worsening chest pain for the past 1-1/2 months. This occurs with rest and with exertion. He is unable to complete his daily walks without having chest pressure. He denies worsening shortness of breath. No orthopnea, no paroxysmal dyspnea, no lower extremity edema. Update 06/12/2025: Doing well overall; still has burning at rest. Occasionally has it with overexertion. Denies pain per se. Shortness of breath is stable. No bleeding or oozing from the groin site. Complains of frequent urination at night; he has to urinate at least 4-6 times. He has difficulty urinating. He has not seen a urologist. Also concerned regarding balance issues. Cardiology ROS: Review of Systems Constitutional: Positive for malaise/fatigue. Cardiovascular: Positive for chest pain and leg swelling (resolves by morning). Musculoskeletal: Positive for arthritis, joint pain and muscle weakness. Neurological: Positive for dizziness and light-headedness. Past Medical History He has a past medical history of Coronary artery disease, Heart valve disease, Hyperlipidemia, and Hypertension. Surgical History He has a past surgical history that includes Coronary artery bypass graft; Coronary angioplasty with stent; and Cardiac catheterization. Social History He reports that he has quit smoking. His smoking use included cigarettes. He has never used smokeless tobacco. He reports that he does not drink alcohol and does not use drugs. Family History Family History Problem Relation Name Age of Onset Coronary artery disease Mother Diabetes Sister Coronary artery disease Brother Allergies Ranolazine and Zetia [ezetimibe] Medications Current Outpatient Medications: alirocumab (Praluent Pen) 150 mg/mL pen injector, Inject 150 mg under the skin every 14 (fourteen) days. (Patient not taking: Reported on 02/07/2025), Disp: 2 mL, Rfl: 11 aspirin 81 mg chewable tablet, Chew 81 mg 2 times daily., Disp: , Rfl: clopidogrel (Plavix) 75 mg tablet, TAKE 1 TABLET BY MOUTH IN THE MORNING, Disp: 90 tablet, Rfl: 3 dilTIAZem (Cardizem) 120 mg immediate release tablet, Take 1 tablet (120 mg) by mouth at bedtime., Disp: 90 tablet, Rfl: 3 dilTIAZem CD (Cardizem CD) 120 mg 24 hr capsule, Take 120 mg by mouth at bedtime., Disp: , Rfl: dilTIAZem CD (Cardizem CD) 240 mg 24 hr capsule, Take 1 capsule (240 mg) by mouth in the morning., Disp: 90 capsule, Rfl: 3 inclisiran (Leqvio) 284 mg/1.5 mL syringe, Inject 1.5 mL (284 mg) under the skin every 6 (six) months. Every 6 months (Patient not taking: Reported on 04/09/2025), Disp: 1.5 mL, Rfl: 1 isosorbide mononitrate ER (more content not included)...[facility] Clinical Note 04-09-2025 Note Date & XzpsRdhmBxdxwyjj74-57-1448 NoteH&P reviewed. The patient was examined and there are no changes to the H&P. Procedure reviewed with patient inclduing risks of stroke, OK, . Mr Justice is agreeable to proceed with coronary angiography and graft study today.[facility] Progress note 03-27-2025 Note Date & VqeuYebcWecudpcx25-86-75[facility] Chief Complaint; Patient here today for an early per his request. Patient states he has been having episodes of chest heaviness up to 2 to 3 times a day. Increased fatigue, SOB, GRIFFIN, leg swelling with itching and numbness. Patient denies palpitations/racing heart, dizziness. HPI: Salomón Justice is a 63 y.o. [...] about when he first presented to a dev manager; he was 40 years old! He saw [...] frequently 1 to 2 miles without symptoms UPDATE 03/27/2025 Salomón has been feeling worsening chest pain for the past 1-1/2 months. This occurs with rest and with exertion. He is unable to complete his daily walks without having chest pressure. He denies worsening shortness of breath. No orthopnea, no paroxysmal dyspnea, no lower extremity edema. Cardiology ROS: Review of Systems Constitutional: Positive for malaise/fatigue. Cardiovascular: Positive for chest pain, dyspnea on exertion and leg swelling (resolves by morning). Respiratory: Positive for shortness of breath. Musculoskeletal: Positive for arthritis, joint pain and [...] No family history on file. Allergies Ranolazine and Zetia [ezetimibe] Medications Current Outpatient Medications: alirocumab (Praluent Pen) 150 mg/mL pen injector, Inject 150 mg under the skin every 14 (fourteen) days. (Patient not taking: Reported on 02/07/2025), Disp: 2 mL, Rfl: 11 aspirin 81 mg chewable tablet, Chew 81 mg 2 times daily., Disp: , Rfl: clopidogrel (Plavix) 75 mg tablet, TAKE 1 TABLET BY MOUTH IN THE MORNING, Disp: 90 tablet, Rfl: 0 colchicine 0.6 mg tablet, Take 1 tablet (0.6 mg) by mouth once daily as directed., Disp: 90 tablet, Rfl: 3 dilTIAZem (Cardizem) 120 mg immediate release tablet, Take 1 tablet (120 mg) by mouth at bedtime., Disp: 90 tablet, Rfl: 3 dilTIAZem CD (Cardizem CD) 240 mg 24 hr capsule, Take 1 capsule (240 mg) by mouth in the morning., Disp: 90 capsule, Rfl: 3 ezetimibe (Zetia) 10 mg tablet, Take 1 tablet (10 mg) by mouth once daily as directed. (Patient not taking: Reported on 02/07/2025), Disp: 90 tablet, Rfl: 3 inclisiran (Leqvio) [...] for ongoing chest pain after 3 doses, (more content not included)...[facility] Progress note 02-07-2025 Note Date & BnbmUoxwNiowplcj11-83-5854 [facility] Chief Complaint; [...] about when he first presented to a dev manager; he was 40 years old! He saw [...] normocephalic. EYES: FELICIANO, EOMI. (more content not included)...[facility] Progress note 08-23-2024 Note Date & IjmvFuvhVpqneyjv87-51-0162 [facility] Chief Complaint; CHEST PAIN [...] about when he first presented to a dev manager; he was 40 years old! He saw [...] 10/13/2022 Global left vent (more content not included)...[facility] Discharge summary note 09-17-2021 Note Date & KkpbXuqhGtrixecw08-59-3051 NoteMR#: [id number] [facility] Pt. Name: Salomón Justice Admitted: 09/15/2021 Discharged: 09/17/2021 Date of : 1960 Physician: Jaci Benites MD DISCHARGE SUMMARY PRIMARY CARE PHYSICIAN: Mitesh Ruiz D.O. CONSULTING PHYSICIAN: Cardiology Team. FINAL DIAGNOSES: [...] Benites MD Date Trans: 09/17/2021 09:46 A/raphael DN_JN:[id number] cc: Mitesh Ruiz D.O. [address] [place] [address]Nwh [facility] Summary Purpose Family History No Family History [...] and content) DATE CREATED AUTHOR 03/31/2022 [facility] DATE CREATED AUTHOR AUTHOR'S ORGANIZ ATION 08/24/2022 [facility] DATE CREATED AUTHOR AUTHOR'S ORGANIZ ATION 10/25/2022 [facility] DATE CREATED AUTHOR AUTHOR'S ORGANIZ ATION 06/13/2025 [facility] FOR RECORDS PERTAINING TO PATIENTS WHO ARE [...] BE BASED ON THE PRIMARY CLINICAL RECORDS. [facility] [employer] provides no warranty or guarantee of the accuracy or completeness of information in this document.
== END 2025-06-20 09:21 | disposition home or self-care (01) ==
LOC: LAB 09:22
PROVIDERS: Visit Provider Nurse Practitioner Family
DX: Z12.5 Encounter for screening for malignant neoplasm of prostate (principal)
CPT/HCPCS: 36415; G0103